=== PATIENT | female | born 1935 | race Caucasian/White ===

== ENCOUNTER 2018-12-22 21:25 | Inpatient (IN) ==
[2018-12-22] MEDS ORDERED: Aspirin 81 MG TAB.CHEW PO ONE (21:45)
[2018-12-22] MEDS ORDERED: Ondansetron 4 MG/2 ML VIAL IVP ONE (21:58)
[2018-12-22] MEDS ORDERED: Furosemide 40 MG/4 ML VIAL IVP ONE (21:58)
--- NOTE | 2018-12-22 22:25 | Emergency Department Note ---
Disposition Clinical Impression: Dyspnea Qualifiers: Dyspnea type: dyspnea on exertion Qualified Code(s): R06.09 - Other forms of dyspnea CHF (congestive heart failure) Qualifiers: Heart failure type: unspecified Heart failure chronicity: acute Qualified Code(s): I50.9 - Heart failure, unspecified Disposition: Admitted As Inpatient Condition: Fair Time of Disposition: 01:22 SOB HPI - General Chief Complaint: ED General Medical Stated Complaint: Dyspnea, Nausea, Cardiac HX Time Seen by Provider: 12/22/18 21:44 Source: patient, family Mode of arrival: ambulatory Limitations: no limitations Nursing Notes Reviewed: Yes Vital Signs Reviewed: Yes - History of Present Illness 83-year-old female patient presents for evaluation of shortness of breath. She has a history of coronary disease with 2 stent placements and a pacemaker with a history of atrial fibrillation and does take Coumadin. Patient and her granddaughter both state that her legs become more swollen the last few days. However, she has been short of breath for a while they state. Last night she was a difficult time sleeping she kept waking up short of breath. She called her granddaughter who is a nurse and advised her either she was taken to the hospital or call 911. Patient denies any chest pain but states that she does have some lower abdominal pain denies any epigastric or right upper quadrant pain. Pt Subjective Complaint: shortness of breath Onset (ago): week(s) (3 weeks but worse over the last 2-3 days.) Context: occurred during exertion (With even minor exertion) Severity: moderate Consistency/Duration: intermittent Improves with: rest Worsens with: lying flat, exertion, movement Known history of: other (Coronary artery disease and stent placement 2, pacemaker) Associated symptoms: Reports: orthopnea Treatment prior to arrival: none Cough present: No - Related Data Home oxygen amount: none Home Medications Medication Instructions Recorded Confirmed Aspirin Enteric Coated [Aspirin EC] 81 mg PO DAILY 12/26/14 12/23/18 Atorvastatin [Lipitor] 40 mg PO DAILY 12/26/14 12/23/18 Carvedilol [Coreg] 12.5 mg PO BID 12/26/14 12/23/18 Ferrous Gluconate 325 mg PO DAILY 12/26/14 12/23/18 Isosorbide MONOnitrate (24 HR) 60 mg PO DAILY 12/26/14 12/23/18 [Imdur] Omeprazole [PriLOSEC] 40 mg PO DAILY 12/26/14 12/23/18 Warfarin [Coumadin] 3 mg PO AD PRN 12/26/14 12/23/18 Alendronate Sodium [Fosamax] 70 mg PO QWEEK 12/23/18 12/23/18 Gabapentin [Neurontin] 900 mg PO DAILY 12/23/18 12/23/18 Previous Rx's Medication Instructions Recorded Furosemide [Lasix] 40 mg PO DAILY PRN #0 12/27/14 Allergies Allergy/AdvReac Type Severity Reaction Status Date / Time No Known Allergies Allergy Verified 12/26/14 12:21 Constitutional: Denies: fever, chills, weakness, weight change Eyes: Denies: eye pain, eye discharge, vision change ENT ED: Denies: ear pain, throat pain, dental pain, hearing loss, epistaxis, congestion, dysphagia Cardiovascular: Reports: dyspnea on exertion, orthopnea, edema. Denies: chest pain, palpitations, syncope Respiratory: Reports: dyspnea. Denies: cough, wheezes, hemoptysis, stridor Gastrointestinal: Denies: abdominal pain, nausea, vomiting, diarrhea, constipation, hematemesis, melena, hematochezia Genitourinary: Denies: dysuria, frequency, hematuria, discharge Musculoskeletal: Denies: back pain, neck pain, arthralgia, myalgia Integumentary: Denies: rash, abrasion, lesions Neurological: Denies: headache, weakness, numbness, paresthesias, confusion, abnormal gait, vertigo Psychiatric: Denies: anxiety, depression, suicidal thoughts, homicidal thoughts, auditory hallucinations, visual hallucinations Endocrine: Denies: fatigue Hematological/Lymphatic: Denies: easy bleeding, easy bruising Allergic/Immunologic: Denies: facial swelling, urticaria Past Medical History - Past Medical History Attestation: Yes The following information was validated with the patient. Source: patient Medical history: Reports: atrial fibrillation Surgical history: Reports: pacemaker/AICD Psychiatric history: Reports: no psych history - Social History Smoking Status: Never smoker Alcohol use: Reports: none Drug use: Reports: none Physical Exam - General Limitations: no limitations General appearance: alert, in no apparent distress - Head Head exam: atraumatic, normocephalic, normal inspection - Eye Eye exam: Present: normal appearance, PERRL, EOMI - Expanded Eye Exam Pupils: Left: reactive - ENT ENT exam: normal exam, normal oropharynx, mucous membranes moist, TM's normal bilaterally - Expanded ENT Exam External ear exam: Present: normal external inspection Mouth exam: Present: normal external inspection Teeth exam: Present: normal inspection Throat exam: Present: normal inspection - Neck Neck exam: Present: normal inspection, full ROM, trachea midline. Absent: tenderness, meningismus, lymphadenopathy - Chest Chest inspection: Present: normal inspection, symmetric chest wall rise. Absent: tenderness - Respiratory Respiratory exam: Present: normal lung sounds bilaterally, other (Negative for rales). Absent: respiratory distress, wheezes, stridor, accessory muscle use - Cardiovascular Cardiovascular exam: Present: regular rate (paced ) - Abdominal Exam Abdominal exam: Present: soft, tenderness (Bilateral lower abdominal tenderness left greater than right), normal bowel sounds. Absent: distention, guarding, rebound, rigidity Abdominal tenderness: Present: LLQ - Extremities Exam Extremities exam: Present: normal inspection, full ROM. Absent: tenderness, pedal edema - Expanded Upper Extremity Exam Shoulder exam: Present: normal inspection, full ROM. Absent: tenderness Arm exam: Present: normal inspection, full ROM. Absent: tenderness Elbow exam: Present: normal inspection, full ROM. Absent: tenderness Forearm/Wrist exam: Present: normal inspection, full ROM. Absent: tenderness Hand exam: Present: normal inspection, full ROM. Absent: tenderness Vascular exam: Normal: capillary refill, radial pulse - Expanded Lower Extremity Exam Hip/Pelvis exam: Present: normal inspection, full ROM. Absent: tenderness Upper leg exam: Present: normal inspection, full ROM. Absent: tenderness Knee exam: Present: normal inspection, full ROM. Absent: tenderness Lower leg exam: Present: normal inspection, full ROM, other (2+ pitting edema). Absent: tenderness Ankle exam: Present: normal inspection, full ROM. Absent: tenderness Foot/toe exam: Present: normal inspection, full ROM. Absent: tenderness Neurovascular/Tendon exam: Absent: motor deficit, sensory deficit, tendon deficit - Back Exam Back exam: Present: normal inspection, full ROM. Absent: tenderness, CVA tenderness (R), CVA tenderness (L) - Neurological Exam Neurological exam: Present: alert, oriented X3, CN II-XII intact - Expanded Neurological Exam Patient oriented to: Present: person, place, time Speech: Present: fluid speech Cranial nerves: EOM function (II, III, IV, ): Normal, facial sensation (V): Normal, facial palsy (VII): Normal, gag reflex (IX): Normal, spinal accessory fu nction (XI): Normal, tongue deviation (XII): Normal Motor strength - LUE: 5/5 Motor strength - RUE: 5/5 Motor strength - LLE: 5/5 Motor strength - RLE: 5/5 Coma Scale Eye Opening: Spontaneous Coma Scale Motor Response: Obeys Commands Coma Scale Verbal Response: Oriented Coma Scale Total: 15 - Psychiatric Psychiatric exam: Present: normal affect, normal mood - Skin Skin exam: Present: warm, dry, intact, normal color Course Course Narrative: Patient was placed in examination room. H&P is obtained. Nurse notes reviewed. She states she has been coming more exertional dyspneic. Sometimes at night she is more short of breath and unable to sleep. She did fall approximately 3 weeks ago. I will obtain basic lab work including EKG and cardiac workup. Wrist x-ray was obtained to rule out pulmonary edema or infiltrate. She Does have a coronary artery history with 2 stents and a pacemaker placed in 2011. Patient was given Lasix 40 g IV push secondary to dyspnea and pedal edema. I am concerned about her shortness breath as well as her abdominal pain. He states both of them present for some time but worse in the last few days. I will obtain a CTA of her chest to rule out pulmonary embolism along with a CT abdomen and pelvis to rule out any diverticulitis. - Reevaluation(s) Reevaluation #1: Patient is resting. She went to the bathroom and came back a little short of breath and when of right shoulder pain which is reproducible. It has since subsided. I will give her morphine 2 g IV push which should help with her sh ortness of breath, pain, anxiety. I did place oxygen 2 LPM nasal cannula to see if this improved her air hunger. Time: 23:31 Reevaluation #3: Discussed all results with the family and patient awaiting for call back from the hospitalist . Time: 02:31 - Consultations Consultation #1: Dr. Newman excess patient for observation. Time: 02:12 Vital Signs Temperature 97.8 F 12/22/18 21:27 Pulse Rate 80 12/22/18 21:27 Respiratory Rate 24 12/22/18 21:27 Blood Pressure 167/83 12/22/18 21:27 O2 Sat by Pulse Oximetry 94 12/22/18 21:27 Temperature 98.2 F 12/22/18 22:19 Pulse Rate 72 12/23/18 02:06 Respiratory Rate 16 12/23/18 02:06 Blood Pressure 130/69 12/23/18 02:06 O2 Sat by Pulse Oximetry 98 12/23/18 02:06 Oxygen Delivery Oxygen Delivery Nasal Cannula Shortness of Breath/Dyspnea - Differential Diagnosis Likely: congestive heart failure, pneumonia, pulmonary embolism - Medical Records Medical records reviewed: Yes I reviewed the patient's medical records. - Lab Data Lab results reviewed: Yes I reviewed the patient's lab results. Result diagrams: 12/22/18 22:11 12/22/18 22:11 Lab Results 12/22/18 12/22/18 12/22/18 Range/Units 22:11 22:11 22:11 WBC (4.3-11.1) K/mcL RBC (3.82-4.97) M/mcL Hgb (11.5-15.4) g/dL Hct (35.3-44.9) % MCV (83.0-100.0) fL MCH (28.0-33.3) pg MCHC (31.6-35.5) g/dL RDW (11.5-14.5) % Plt Count (140-400) K/mcL MPV (9.4-12.4) fL Immature Gran % (0-4) % Seg Neutrophils % % Lymphocytes % % Monocytes % % Eosinophils % % Basophils % % Neutrophils # (1.6-8.9) K/mcL Lymphocytes # (0.6-4.6) K/mcL Monocytes # (0.0-1.3) K/mcL Eosinophils # (0.0-0.6) K/mcL Basophils # (0.0-0.2) K/mcL PT 44.4 H* (9.4-12.1) Seconds INR 3.9 APTT 36.2 H (26.0-36.0) Seconds Sodium (136-145) mEq/L Potassium (3.5-5.1) mEq/L Chloride (98-107) mEq/L Carbon Dioxide (23-29) mEq/L BUN (8-23) mg/dL Creatinine (0.60-1.20) mg/dL Est GFR ( Amer) (> 60) Est GFR (Non-Af Amer) (> 60) BUN/Creatinine Ratio (6-26) Glucose (70-105) mg/dL Calculated Osmolality (280-300) Calcium (8.6-10.3) mg/dL Total Bilirubin 1.3 H (0.3-1.0) mg/dL Direct Bilirubin 0.3 H (0.0-0.2) mg/dL Indirect Bilirubin 1.0 (0.0-1.2) mg/dL AST 26 (13-39) Units/L ALT 18 (7-52) Units/L Alkaline Phosphatase 84 (34-104) Units/L Troponin I (< 0.04) ng/mL B-Natriuretic Peptide 1171 H (Less than 100) pg/mL Serum Total Protein 6.8 (6.4-8.9) g/dL Albumin 3.7 (3.5-5.7) g/dL Globulin 3.1 (2.4-3.5) g/dL Albumin/Globulin Ratio 1.2 (1.1-2.2) Lipase (11-82) Units/L Urine Color (Yellow) Urine Clarity (Clear) Urine pH (5.0-8.0) pH Units Ur Specific [place] (1.010-1.025) Urine Protein (Neg-Trace) mg/dL Urine Glucose (UA) (Normal) mg/dL Urine Ketones (Negative) mg/dL Urine Blood (Negative) Urine Nitrite (Negative) Urine Bilirubin (Negative) Urine Urobilinogen (Normal) mg/dL Ur Leukocyte Esterase (Negative) Urine Microscopic RBC (0-3) per hpf Urine Microscopic WBC (0-3) per hpf Ur Squamous Epith Cells (None-Few) per lpf Urine Bacteria (None-Few) per hpf Hyaline Casts (None-Few) per lpf Ur Culture Indicated? (NO) 12/22/18 12/22/18 12/22/18 Range/Units 22:11 22:11 22:11 WBC 7.5 (4.3-11.1) K/mcL RBC 3.75 L (3.82-4.97) M/mcL Hgb 10.6 L (11.5-15.4) g/dL Hct 33.3 L (35.3-44.9) % MCV 88.8 (83.0-100.0) fL MCH 28.3 (28.0-33.3) pg MCHC 31.8 (31.6-35.5) g/dL RDW 16.7 H (11.5-14.5) % Plt Count 268 (140-400) K/mcL MPV 10.3 (9.4-12.4) fL Immature Gran % 0.4 (0-4) % Seg Neutrophils % 67.8 % Lymphocytes % 19.4 % Monocytes % 10.7 % Eosinophils % 0.9 % Basophils % 0.8 % Neutrophils # 5.1 (1.6-8.9) K/mcL Lymphocytes # 1.5 (0.6-4.6) K/mcL Monocytes # 0.8 (0.0-1.3) K/mcL Eosinophils # 0.1 (0.0-0.6) K/mcL Basophils # 0.1 (0.0-0.2) K/mcL PT (9.4-12.1) Seconds INR APTT (26.0-36.0) Seconds Sodium 139 (136-145) mEq/L Potassium 3.8 (3.5-5.1) mEq/L Chloride 103 (98-107) mEq/L Carbon Dioxide 25 (23-29) mEq/L BUN 12 (8-23) mg/dL Creatinine 0.74 (0.60-1.20) mg/dL Est GFR ( Amer) > 60 (> 60) Est GFR (Non-Af Amer) > 60 (> 60) BUN/Creatinine Ratio 16 (6-26) Glucose 119 H (70-105) mg/dL Calculated Osmolality 289 (280-300) Calcium 8.4 L (8.6-10.3) mg/dL Total Bilirubin (0.3-1.0) mg/dL Direct Bilirubin (0.0-0.2) mg/dL Indirect Bilirubin (0.0-1.2) mg/dL AST (13-39) Units/L ALT (7-52) Units/L Alkaline Phosphatase (34-104) Units/L Troponin I < 0.03 (< 0.04) ng/mL B-Natriuretic Peptide (Less than 100) pg/mL Serum Total Protein (6.4-8.9) g/dL Albumin (3.5-5.7) g/dL Globulin (2.4-3.5) g/dL Albumin/Globulin Ratio (1.1-2.2) Lipase 17 (11-82) Units/L Urine Color (Yellow) Urine Clarity (Clear) Urine pH (5.0-8.0) pH Units Ur Specific [place] (1.010-1.025) Urine Protein (Neg-Trace) mg/dL Urine Glucose (UA) (Normal) mg/dL Urine Ketones (Negative) mg/dL Urine Blood (Negative) Urine Nitrite (Negative) Urine Bilirubin (Negative) Urine Urobilinogen (Normal) mg/dL Ur Leukocyte Esterase (Negative) Urine Microscopic RBC (0-3) per hpf Urine Microscopic WBC (0-3) per hpf Ur Squamous Epith Cells (None-Few) per lpf Urine Bacteria (None-Few) per hpf Hyaline Casts (None-Few) per lpf Ur Culture Indicated? (NO) 12/22/18 Range/Units 23:57 WBC (4.3-11.1) K/mcL RBC (3.82-4.97) M/mcL Hgb (11.5-15.4) g/dL Hct (35.3-44.9) % MCV (83.0-100.0) fL MCH (28.0-33.3) pg MCHC (31.6-35.5) g/dL RDW (11.5-14.5) % Plt Count (140-400) K/mcL MPV (9.4-12.4) fL Immature Gran % (0-4) % Seg Neutrophils % % Lymphocytes % % Monocytes % % Eosinophils % % Basophils % % Neutrophils # (1.6-8.9) K/mcL Lymphocytes # (0.6-4.6) K/mcL Monocytes # (0.0-1.3) K/mcL Eosinophils # (0.0-0.6) K/mcL Basophils # (0.0-0.2) K/mcL PT (9.4-12.1) Seconds INR APTT (26.0-36.0) Seconds Sodium (136-145) mEq/L Potassium (3.5-5.1) mEq/L Chloride (98-107) mEq/L Carbon Dioxide (23-29) mEq/L BUN (8-23) mg/dL Creatinine (0.60-1.20) mg/dL Est GFR ( Amer) (> 60) Est GFR (Non-Af Amer) (> 60) BUN/Creatinine Ratio (6-26) Glucose (70-105) mg/dL Calculated Osmolality (280-300) Calcium (8.6-10.3) mg/dL Total Bilirubin (0.3-1.0) mg/dL Direct Bilirubin (0.0-0.2) mg/dL Indirect Bilirubin (0.0-1.2) mg/dL AST (13-39) Units/L ALT (7-52) Units/L Alkaline Phosphatase (34-104) Units/L Troponin I (< 0.04) ng/mL B-Natriuretic Peptide (Less than 100) pg/mL Serum Total Protein (6.4-8.9) g/dL Albumin (3.5-5.7) g/dL Globulin (2.4-3.5) g/dL Albumin/Globulin Ratio (1.1-2.2) Lipase (11-82) Units/L Urine Color Yellow (Yellow) Urine Clarity Clear (Clear) Urine pH 6.0 (5.0-8.0) pH Units Ur Specific [place] 1.009 L (1.010-1.025) Urine Protein 30 H (Neg-Trace) mg/dL Urine Glucose (UA) Normal (Normal) mg/dL Urine Ketones Negative (Negative) mg/dL Urine Blood Trace H (Negative) Urine Nitrite Negative (Negative) Urine Bilirubin Negative (Negative) Urine Urobilinogen Normal (Normal) mg/dL Ur Leukocyte Esterase Negative (Negative) Urine Microscopic RBC 3-5 H (0-3) per hpf Urine Microscopic WBC 0-3 (0-3) per hpf Ur Squamous Epith Cells Moderate H (None-Few) per lpf Urine Bacteria None Seen (None-Few) per hpf Hyaline Casts None Seen (None-Few) per lpf Ur Culture Indicated? NO (NO) - Radiology Data Radiology results reviewed: Yes I reviewed the patient's radiology results. Chest X-Ray 12/22/18 22:29 IMPRESSION: Mild pulmonary edema. D/ / Bradley Armijo MD / Bradley Armijo MD Interpreting Provider: Bradley Armijo MD Abdomen/Pelvis CT 12/23/18 01:09 IMPRESSION: Negative for acute pulmonary embolism. Features of cardiac decompensation, including bilateral pleural effusions with pulmonary edema. Hepatic features suggesting cardiac cirrhosis. Additional features of volume overload, including gallbladder wall edema, mesenteric edema and abdominal ascites. Heavy multi vessel coronary calcifications. D/ / Jae Pringle / Jae Pringle Interpreting Provider: Jae Pringle Chest CTA 12/23/18 01:09 IMPRESSION: Negative for acute pulmonary embolism. Features of cardiac decompensation, including bilateral pleural effusions with pulmonary edema. Hepatic features suggesting cardiac cirrhosis. Additional features of volume overload, including gallbladder wall edema, mesenteric edema and abdominal ascites. Heavy multi vessel coronary calcifications. D/ / Jae Pringle / Jae Pringle Interpreting Provider: Jae Pringle - EKG Data EKG attestation: Yes I reviewed and interpreted this EKG. EKG results narrative: EKG is reviewed and interpreted by me: Ventricular paced rhythm rate of 74 bpm, left axis, no acute ST elevations, underlying atrial fibrillation, negative [place] Criteria Critical Care Time Critical Care Time: Yes Total Critical Care Time: 45 Attestation: The high probability of a clinically significant, sudden or life threatening deterioration of the patient's condition required my full and direct attention, intervention and personal management.
[2018-12-22 22:28] LABS: White Blood Count 7.5 K/mcL (4.3-11.1)
[2018-12-22 22:29] LABS: Basophils # 0.1 K/mcL (0.0-0.2); Basophils % 0.8 %; Eosinophils # 0.1 K/mcL (0.0-0.6); Eosinophils % 0.9 %; Hematocrit 33.3 % (35.3-44.9); Hemoglobin 10.6 g/dL (11.5-15.4); Immature Granulocytes % 0.4 % (0-4); Lymphocytes # 1.5 K/mcL (0.6-4.6); Lymphocytes % 19.4 %; Mean Corpuscular HGB Conc 31.8 g/dL (31.6-35.5); Mean Corpuscular Hemoglobin 28.3 pg (28.0-33.3); Mean Corpuscular Volume 88.8 fL (83.0-100.0); Mean Platelet Volume 10.3 fL (9.4-12.4); Monocytes # 0.8 K/mcL (0.0-1.3); Monocytes % 10.7 %; Neutrophils # 5.1 K/mcL (1.6-8.9); Platelet Count 268 K/mcL (140-400); Red Blood Count 3.75 M/mcL (3.82-4.97); Red Cell Distribution Width 16.7 % (11.5-14.5); Segmented Neutrophils % 67.8 %
[2018-12-22 22:36] LABS: INR 3.9
[2018-12-22 22:39] LABS: Activated Partial Thrombo Time 36.2 Seconds (26.0-36.0)
[2018-12-22 22:43] LABS: Prothrombin Time 44.4 Seconds (9.4-12.1)
[2018-12-22 22:49] LABS: Albumin 3.7 g/dL (3.5-5.7); Albumin/Globulin Ratio 1.2 (1.1-2.2); Bilirubin,Direct 0.3 mg/dL (0.0-0.2); Bilirubin,Total 1.3 mg/dL (0.3-1.0); Globulin 3.1 g/dL (2.4-3.5); Total Protein 6.8 g/dL (6.4-8.9)
[2018-12-22 22:51] LABS: BUN/Creatinine Ratio 16 (6-26); Blood Urea Nitrogen 12 mg/dL (8-23); Calcium 8.4 mg/dL (8.6-10.3); Carbon Dioxide 25 mEq/L (23-29); Chloride 103 mEq/L (98-107); Glucose 119 mg/dL (70-105); Osmolality,Calculated 289 (280-300); Potassium 3.8 mEq/L (3.5-5.1); Sodium 139 mEq/L (136-145); Troponin I < 0.03 ng/mL (< 0.04); eGFR For African Americans > 60 (> 60); eGFR For Non-African Americans > 60 (> 60)
[2018-12-22] MEDS ORDERED: Isovue-370 500 ML BOTTLE IVP ONE (23:02)
[2018-12-22] MEDS ORDERED: Morphine Sulfate 2 MG/ML SYRINGE IVP ONE (23:30)
[2018-12-23 00:08] LABS: Bilirubin,Urine Negative (Negative); Blood,Urine Trace (Negative); Clarity,Urine Clear (Clear); Color,Urine Yellow (Yellow); Glucose,Urine (UA) Normal (Normal); Ketones,Urine Negative (Negative); Leukocyte Esterase,Urine Negative (Negative); Nitrite,Urine Negative (Negative); Protein,Urine 30 mg/dL (Neg-Trace); Specific Gravity,Urine 1.009 (1.010-1.025); Urobilinogen,Urine Normal (Normal)
[2018-12-23 00:11] LABS: Bacteria,Urine None Seen per hpf (None-Few); Hyaline Casts,Urine None Seen per lpf (None-Few); Squamous Epithelial Cell,Urine Moderate per lpf (None-Few); WBC,Urine 0-3 per hpf (0-3)
--- NOTE | 2018-12-23 08:30 | Internal Med History&Physical ---
Date of Encounter: 12/23/18 Time of Encounter: 08:28 Internal Medicine - H&P: HPI Chief complaint: leg swelling, sob Admitted From: Home Plans for Post Hospital Care: Home History of present illness: Ms. Correa is a 83 year old female with past medical history of A. fib on Coumadin, status post pacemaker, CAD with stent last stent in 2011, hypertension came in with complain of shortness of breath and increased leg swelling for the past 3 or so weeks. Patient has noted gradually worsening shortness of breath increasingly with minimal exertion and lately present at night as well making it difficult to sleep. Patient 's granddaughter who is a nurse asked her to come to ER. Patient denied any chest pain at any point of time. Denies missing any medication. Denies any abdominal pain back pain nausea vomiting or diarrhea. She takes Coumadin and had recently INR checked which was okay. Denies any blood in stool or urine. Denies any dark stool. Denies any upper respiratory recent infection. Is not a big salt eater and denies taking a lot of prepared food. Patient was related in ER. She did not have any PE on CTA had signs of pulmonary edema with bilateral pleural effusion and hepatic features suggesting cardiac cirrhosis and gallbladder wall edema, mesenteric edema and abdominal ascites. Patient also complaining of some abdominal discomfort to ER physician which she denied To me. She had CT abdomen for evaluation diverticulitis which did not show any signs of infection. She denied any allergies. Did not know all of her medication except gabapentin, Coumadin, carvedilol, aspirin. Discussed CODE STATUS and patient is full code. Past Med Surg Social Fam HX - Past Medical History Medical history: atrial fibrillation, hyperlipidemia, hypertension Additional medical history: pacemaker; stents Psychiatric history: no psych history - Past Surgical History Surgical History: pacemaker/AICD Additional surgical history: tubal, cardiac stents x 2 - Social History Smoking Status: Never smoker Smokeless Tobacco Status: No Alcohol use: none Drug use: none - Additional Family History Additional family history: mother had heart problems, father and brother with diabetes Internal Medicine - H&P: Meds Aspirin Enteric Coated [Aspirin EC] 81 mg PO DAILY 12/26/14 [History] Atorvastatin [Lipitor] 40 mg PO DAILY 12/26/14 [History] Carvedilol [Coreg] 12.5 mg PO BID 12/26/14 [History] Ferrous Gluconate 325 mg PO DAILY 12/26/14 [History] Isosorbide MONOnitrate (24 HR) [Imdur] 60 mg PO DAILY 12/26/14 [History] Omeprazole [PriLOSEC] 40 mg PO DAILY 12/26/14 [History] Warfarin [Coumadin] 3 mg PO AD PRN 12/26/14 [History] Furosemide [Lasix] 40 mg PO DAILY PRN #0 12/27/14 [Rx] Alendronate Sodium [Fosamax] 70 mg PO QWEEK 12/23/18 [History] Gabapentin [Neurontin] 900 mg PO DAILY 12/23/18 [History] Allergy/AdvReac Type Severity Reaction Status Date / Time No Known Allergies Allergy Verified 12/26/14 12:21 All Systems PM: A 10-system review of systems was performed and is negative for pertinent findings except as documented above in the HPI. - Constitutional Vitals: Temp Pulse Resp BP Pulse Ox 98.4 F 82 18 156/92 90 12/23/18 07:37 12/23/18 07:37 12/23/18 07:37 12/23/18 07:37 12/23/18 07:37 Exam: Constitutional: Vitals as noted. Conversant. No Apparent Distress. Eyes : Sclera white, conjunctiva clear, no lid lag, PEARLA. ENT : Grossly normal hearing. Respiratory : No accessory muscle use. Occasional rhonchi. Diffuse crackles Cardiovascular : RRR, +S1, +S2. no murmur, gallop, rubs. No chest wall tenderness GI/Abdominal : Soft, Non-tender, Non-distended, normal bowel sounds, no peritoneal signs. Musculoskeletal: no deformity noted, trace pedal edema, pulses palpable and symmetrical in UE/LE. no calf tenderness. Neurological: AO X3, CN II-XII grossly intact, grossly normal motor and sensory exam. Skin: No skin rash, lesions or ulcers noted. Pych: Good insight and judgement. Intact memory. AOx3. Internal Med - H&P Results - Labs CBC & Chem 7: 12/22/18 22:11 12/22/18 22:11 Labs: Short CBC 12/22/18 Range/Units 22:11 WBC 7.5 (4.3-11.1) K/mcL Hgb 10.6 L (11.5-15.4) g/dL Hct 33.3 L (35.3-44.9) % Plt Count 268 (140-400) K/mcL Neutrophils # 5.1 (1.6-8.9) K/mcL BMP 12/22/18 22:11 Sodium 139 Potassium 3.8 Chloride 103 Carbon Dioxide 25 BUN 12 Creatinine 0.74 Glucose 119 H Calcium 8.4 L Cardiac Enzymes 12/22/18 Range/Units 22:11 Troponin I < 0.03 (< 0.04) ng/mL Liver Function 12/22/18 Range/Units 22:11 Total Bilirubin 1.3 H (0.3-1.0) mg/dL Direct Bilirubin 0.3 H (0.0-0.2) mg/dL AST 26 (13-39) Units/L ALT 18 (7-52) Units/L Alkaline Phosphatase 84 (34-104) Units/L Albumin 3.7 (3.5-5.7) g/dL Urine 12/22/18 Range/Units 23:57 Urine Color Yellow (Yellow) Urine Clarity Clear (Clear) Urine pH 6.0 (5.0-8.0) pH Units Ur Specific [place] 1.009 L (1.010-1.025) Urine Protein 30 H (Neg-Trace) mg/dL Urine Glucose (UA) Normal (Normal) mg/dL - EKG Data -: EKG Interpreted by Myself (paced rhythm. ) - Impressions ITS Impressions Chest X-Ray 12/22/18 22:29 IMPRESSION: Mild pulmonary edema. D/ / Bradley Armijo MD / Bradley Armijo MD Interpreting Provider: Bradley Armijo MD Abdomen/Pelvis CT 12/23/18 01:09 IMPRESSION: Negative for acute pulmonary embolism. Features of cardiac decompensation, including bilateral pleural effusions with pulmonary edema. Hepatic features suggesting cardiac cirrhosis. Additional features of volume overload, including gallbladder wall edema, mesenteric edema and abdominal ascites. Heavy multi vessel coronary calcifications. D/ / Jae Pringle / Jae Pringle Interpreting Provider: Jae Pringle Chest CTA 12/23/18 01:09 IMPRESSION: Negative for acute pulmonary embolism. Features of cardiac decompensation, including bilateral pleural effusions with pulmonary edema. Hepatic features suggesting cardiac cirrhosis. Additional features of volume overload, including gallbladder wall edema, mesenteric edema and abdominal ascites. Heavy multi vessel coronary calcifications. D/ / Jae Pringle / Jae Pringle Interpreting Provider: Jae Pringle - Assessment and Plan (1) CHF (congestive heart failure) Current Visit: Yes Status: Acute Assessment and plan: Patient with signs of fluid overload on imaging and exam. CT with pulmonary edema, bilateral pleural effusion, abdominal ascites, gallbladder wall edema and mesenteric edema. Patient with minimal lower extremity edema EKG with paced rhythm in troponin and unremarkable. BNP of 1100. Last echo in 2014 with EF of 50% on last echocardiogram, with dilated left and right atrium. We will repeat echocardiogram. appears to be compliant with her medications. Has a pacemaker. Could be related to new anemia. Continue Lasix 40 twice a day IV and monitor renal function. strict I/O, daily weights Qualifiers: Heart failure type: combined systolic and diastolic Heart failure chronicity: acute on chronic Qualified Code(s): I50.43 - Acute on chronic combined systolic (congestive) and diastolic (congestive) heart failure (2) Dyspnea Current Visit: Yes Status: Acute Assessment and plan: Likely related to CHF. Treatment as above No history of smoking. Without amputation at his changes on CT Qualifiers: Dyspnea type: orthopnea Qualified Code(s): R06.01 - Orthopnea (3) DVT prophylaxis Current Visit: No Status: Acute Assessment and plan: On Coumadin (4) Hyperglycemia Current Visit: No Status: Acute Assessment and plan: We will obtain A1c. No history of diabetes. (5) Atrial fibrillation Current Visit: No Status: Chronic Assessment and plan: History of chronic A. fib on Coumadin and Coreg. Currently with paced rhythm Continue home beta octavio. Coumadin on hold as INR supratherapeutic Qualifiers: Atrial fibrillation type: chronic Qualified Code(s): I48.2 - Chronic atrial fibrillation (6) CAD (coronary artery disease) Current Visit: No Status: Chronic Assessment and plan: Without any chest pain Continue home aspirin, statin, beta octavio Qualifiers: Coronary Disease-Associated Artery/Lesion type: [place] artery [place] vs. transplanted heart: [place] heart Associated angina: without angina Qualified Code(s): I25.10 - Atherosclerotic heart disease of [place] coronary artery without angina pectoris (7) HTN (hypertension) Current Visit: No Status: Chronic Assessment and plan: Continue home Coreg, Imdur Qualifiers: Hypertension type: essential hypertension Qualified Code(s): I10 - Essential (primary) hypertension (8) Supratherapeutic INR Current Visit: Yes Status: Acute Assessment and plan: INR of 3.9. We will hold home Coumadin (9) Anemia Current Visit: Yes Status: Acute Assessment and plan: Patient with anemia with hemoglobin 10.6 last normal is 2017 No elina blood in stool or urine. INR is supratherapeutic and patient on Coumadin Possibly iron deficiency anemia with increased RDW. Obtain iron panel, ferritin, stool occult blood. He also obtain LDH and haptoglobin given minimally elevated bilirubin Qualifiers: Anemia type: unspecified type Qualified Code(s): D64.9 - Anemia, unspecified - Time Spent With Patient Total time spent is greater than 50% in coordination of care (as documented) at patient's floor/unit and/or counseling patient:
[2018-12-23] MEDS ORDERED: NON-FORMULARY MEDICATION 1 EACH EACH (Alendronate Sodium [Fosamax] 70 MG) PO SCH (09:30)
[2018-12-23 11:13] LABS: % Iron Saturation 12 % (15-50); Iron 43 mcg/dL (50-170); Lactate Dehydrogenase 219 Units/L (140-271); Transferrin 265 mg/dL (203-362)
[2018-12-23] MEDS: Aspirin Enteric Coated 81 MG Tablet PO SCH (11:14)
[2018-12-23] MEDS: Gabapentin 300 MG CAPSULE PO SCH (11:14)
[2018-12-23] MEDS: Isosorbide MONOnitrate (24 HR) 60 MG TAB.ER.24H PO SCH (11:15)
[2018-12-23 11:31] LABS: Ferritin 139 ng/mL (10-120)
[2018-12-23 11:48] LABS: Estimated Average Glucose 134 mg/dl
[2018-12-23 11:52] LABS: Hepatitis B Surface Antigen Nonreactive (Nonreactive)
[2018-12-23 12:21] LABS: Hepatitis B Core IgM Nonreactive (Nonreactive); Hepatitis C Virus Antibody Nonreactive (Nonreactive)
[2018-12-23 12:23] LABS: Hepatitis A Antibody IgM Nonreactive (Nonreactive)
--- NOTE | 2018-12-23 17:39 | Electrocardiograph Report ---
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
[2018-12-23] MEDS ORDERED: Perflutren Lipid Microsphere 1.3 ML in 0.9 % Sodium Chloride 8.7 ML IVP ONE (20:05)
[2018-12-24] MEDS ORDERED: Acetaminophen 325 MG TABLET PO PRN (00:16)
[2018-12-24 05:18] LABS: Basophils # 0.1 K/mcL (0.0-0.2); Basophils % 0.8 %; Eosinophils # 0.2 K/mcL (0.0-0.6); Eosinophils % 2.9 %; Hemoglobin 9.1 g/dL (11.5-15.4); Immature Granulocytes % 0.5 % (0-4); Lymphocytes # 1.2 K/mcL (0.6-4.6); Lymphocytes % 18.1 %; Mean Corpuscular HGB Conc 30.3 g/dL (31.6-35.5); Mean Corpuscular Hemoglobin 27.7 pg (28.0-33.3); Mean Corpuscular Volume 91.5 fL (83.0-100.0); Monocytes # 0.8 K/mcL (0.0-1.3); Monocytes % 11.8 %; Neutrophils # 4.4 K/mcL (1.6-8.9); Platelet Count 216 K/mcL (140-400); Red Blood Count 3.28 M/mcL (3.82-4.97); Red Cell Distribution Width 16.5 % (11.5-14.5); Segmented Neutrophils % 65.9 %; White Blood Count 6.6 K/mcL (4.3-11.1)
[2018-12-24 05:38] LABS: BUN/Creatinine Ratio 15 (6-26); Blood Urea Nitrogen 12 mg/dL (8-23); Calcium 7.9 mg/dL (8.6-10.3); Carbon Dioxide 31 mEq/L (23-29); Chloride 100 mEq/L (98-107); Glucose 101 mg/dL (70-105); Osmolality,Calculated 288 (280-300); Potassium 3.8 mEq/L (3.5-5.1); Sodium 139 mEq/L (136-145); eGFR For African Americans > 60 (> 60); eGFR For Non-African Americans > 60 (> 60)
[2018-12-24 06:17] LABS: INR 2.5; Prothrombin Time 28.8 Seconds (9.4-12.1)
[2018-12-24] MEDS ORDERED: Furosemide 40 MG/4 ML VIAL IVP SCH (09:00)
--- NOTE | 2018-12-24 09:01 | Internal Med Progress Note ---
<Jimena Charlton - Last Filed: 12/24/18 12:22> Hospitalist Progress Note - Encounter Date of Encounter: 12/24/18 Time of Encounter: 09:55 - Exam Vitals: Temp Pulse Resp BP Pulse Ox 98.5 F 69 16 143/82 97 12/24/18 11:46 12/24/18 11:46 12/24/18 11:46 12/24/18 11:46 12/24/18 05:05 - Assessment and Plan (1) CHF (congestive heart failure) Current Visit: Yes Status: Acute (2) Dyspnea Current Visit: Yes Status: Acute (3) DVT prophylaxis Current Visit: No Status: Acute (4) Hyperglycemia Current Visit: No Status: Acute (5) Atrial fibrillation Current Visit: No Status: Chronic (6) CAD (coronary artery disease) Current Visit: No Status: Chronic (7) HTN (hypertension) Current Visit: No Status: Chronic (8) Supratherapeutic INR Current Visit: Yes Status: Acute (9) Anemia Current Visit: Yes Status: Acute - Time Spent with Patient Total time spent is greater than 50% in coordination of care (as documented) at patient's floor/unit and/or counseling patient: Internal Medicine: Result - Labs CBC & Chem 7: 12/24/18 05:03 12/24/18 05:03 Labs: Short CBC 12/24/18 Range/Units 05:03 WBC 6.6 (4.3-11.1) K/mcL Hgb 9.1 L D (11.5-15.4) g/dL Hct 30.0 L (35.3-44.9) % Plt Count 216 (140-400) K/mcL Neutrophils # 4.4 (1.6-8.9) K/mcL BMP 12/24/18 05:03 Sodium 139 Potassium 3.8 Chloride 100 Carbon Dioxide 31 H BUN 12 Creatinine 0.79 Glucose 101 Calcium 7.9 L - ABG Interpretation ABG results: PT/INR, D-dimer PT 28.8 Seconds (9.4-12.1) H 12/24/18 05:03 - Impressions Impressions Echocardiogram 12/23/18 20:59 Impressions: LVEF 30-35%. Normal LV chamber size, wall thickness. Global left ventricular systolic dysfunction. Atypical septal motion consistent with bundle branch block. Indeterminate diastolic function. Mild aortic regurgitation. Normal right ventricular size, mildly reduced function. Mild mitral regurgitation. Moderate tricuspid regurgitation. Mild-moderate pulmonary hypertension. Device lead visualized in right sided chambers. Left Ventricular Wall Motion: Rest Echo Findings The apex, apical inferior, mid inferior, basal inferior, apical anterior, mid anterior, basal anterior, apical septal, mid inferior septal, basal inferior septal, apical lateral, mid anterior lateral, basal anterior lateral, mid anterior septal, mid inferior lateral, basal anterior septal and basal inferior lateral khoury were hypokinetic. Findings: Study Quality * Technically adequate exam. ECG Findings * Difficult to determine rhythm, bundle branch block noted. Left Ventricle * LVEF 30-35%. * Normal LV chamber size, wall thickness. * Global left ventricular systolic dysfunction. * Atypical septal motion consistent with bundle branch block. * Indeterminate diastolic function. Right Ventricle * Normal right ventricular size, mildly reduced function. Left Atrium * Severely dilated left atrium. Right Atrium * Severely dilated right atrium. Interatrial Septum * Interatrial septum not well evaluated. Aortic Valve * Bicuspid aortic valve. * Moderately calcified aortic valve leaflets. * Mild aortic regurgitation. * No aortic stenosis by Doppler. Visually, there appears to be at least mild stenosis. Mitral Valve * Mild mitral annular calcification * Mild mitral regurgitation. * No mitral stenosis. Tricuspid Valve * Normal tricuspid valve structure. * Moderate tricuspid regurgitation. * Mild-moderate pulmonary hypertension. Pulmonic Valve * Normal pulmonic valve structure. * Trace pulmonic regurgitation. Aorta * Normally sized aortic root. Pericardium * The pericardium appears normal. IVC * Normal IVC dimensions and inspiratory collapse. Pulmonary Artery * Normal visualized portions of the main pulmonary artery. Consult Discharge Plan - Plan Referrals: Joanna Alvarado MD [Primary Care Provider] - - Attending Attestation I saw evaluated and examined this patient and reviewed objective data including labs and my medical decision-making was reviewed with the Resident Physician, Pankaj Pérez. I agree with the documented findings, disposition and treatment plan as described except to any changes set forth below. We independently had [id number] contact with the patient. Patient continues to have shortness of breath with minimal exertion. Denies orthopnea. Does have dark colored stools but she has been on iron supplements. Denies any hematemesis. She had been previously told that she was anemic about a week back when she had labs done by her primary care provider provider. No history of EGD or colonoscopy. Echocardiogram does show reduced ejection fraction. Will consult cardiology. Hemoglobin 9.1 this morning. We will recheck. If continues to be low, will consult GI for acute care surgery to evaluate for possible EGD and colonoscopy for her anemia as patient is on Coumadin and also will most likely require left heart catheterization and may need to rule out active bleeding prior to this procedure. Continue IV Lasix twice a day. Monitor potassium levels and renal function. <Pankaj Pérez - Last Filed: 12/24/18 19:23> Hospitalist Progress Note - Encounter Date of Encounter: 12/24/18 - Subjective Interval History: Patient seen and examined at bedside. Denies any new or acute complaints. States she feels less short of breath and during initial presentation. Reports improved lower extremity edema. Denies any fever, chills, chest pain, abdominal pain, nausea, vomiting, headaches, numbness, tingling, or urinary symptoms. - Exam Vitals: Temp Pulse Resp BP Pulse Ox 98.5 F 69 16 121/66 97 12/24/18 07:42 12/24/18 07:42 12/24/18 07:42 12/24/18 07:42 12/24/18 05:05 Exam: Constitutional: Old female in no acute distress Head: Normocephalic, atraumatic Eyes: PERRL, EOMI, conjunctiva pink, sclera anicteric Neck: Supple, trachea midline Lungs: Clear to auscultation bilaterally. Nonlabored breathing. No wheezes, rales, or rhonchi noted. Cardiac: RRR. +s1 +s2 No murmurs, clicks, or rubs noted. GI: Abdomen soft, nontender, mild abdominal distention. Normoactive bowel sounds Extremities: Warm, radial pulses palpable and symmetrical. No cyanosis or calf tenderness. Trace pitting edema in bilateral lower extremities Neuro: Alert and oriented 3. No focal deficits. Normal speech. Skin: Warm, dry, and intact. - Assessment and Plan (1) CHF (congestive heart failure) Current Visit: Yes Status: Acute Assessment and Plan: Presented with shortness of breath, orthopnea, and paroxysmal nocturnal dyspnea CT with pulmonary edema, bilateral pleural effusion, abdominal ascites, gallbladder wall edema and mesenteric edema. EKG with paced rhythm in troponin and unremarkable. BNP elevated at 1100 Last echo in 2014 with EF of 50% on last echocardiogram, with dilated left and right atrium. Repeat echocardiogram demonstrated LVEF 30-35% with global left ventricular systolic dysfunction Consult cardiology for further assistance with workup and management of the reduced ejection fraction heart failure Initiate 2.5 mg lisinopril daily Lasix 40 twice a day IV strict I/O, daily weights Salt and 1.5 L fluid restricted diet (2) Atrial fibrillation Current Visit: Yes Status: Chronic Assessment and Plan: History of chronic A. fib on Coumadin and Coreg. Currently with paced rhythm Continue home beta octavio. Coumadin on hold as INR was supratherapeutic at 3.9 on admission (3) CAD (coronary artery disease) Current Visit: Yes Status: Chronic Assessment and Plan: Without any chest pain Troponin negative Continue home aspirin, statin, beta octavio (4) HTN (hypertension) Current Visit: Yes Status: Chronic Assessment and Plan: Continue home Coreg, Imdur (5) Supratherapeutic INR Current Visit: Yes Status: Acute Assessment and Plan: INR of 3.9 on admission Continue to monitor hold home Coumadin (6) Anemia Current Visit: Yes Status: Acute Assessment and Plan: Patient with anemia with hemoglobin 10.6 last normal is 2017 No elina blood in stool or urine. Patient denies any melena. INR is supratherapeutic and patient on Coumadin Iron panel demonstrates iron deficiency Suspect this is a chronic anemia at this time with no overt signs of bleeding, hemoglobin is stable today at 10 Continue to monitor and supplement with iron - Time Spent with Patient Total time spent is greater than 50% in coordination of care (as documented) at patient's floor/unit and/or counseling patient: Internal Medicine: Result - Labs CBC & Chem 7: 12/24/18 11:34 12/24/18 05:03 Labs: Short CBC 12/24/18 Range/Units 05:03 WBC 6.6 (4.3-11.1) K/mcL Hgb 9.1 L D (11.5-15.4) g/dL Hct 30.0 L (35.3-44.9) % Plt Count 216 (140-400) K/mcL Neutrophils # 4.4 (1.6-8.9) K/mcL BMP 12/24/18 05:03 Sodium 139 Potassium 3.8 Chloride 100 Carbon Dioxide 31 H BUN 12 Creatinine 0.79 Glucose 101 Calcium 7.9 L - ABG Interpretation ABG results: PT/INR, D-dimer PT 28.8 Seconds (9.4-12.1) H 12/24/18 05:03 <Jimena Charlton - Last Filed: 12/24/18 12:22> (1) CHF (congestive heart failure) Qualifiers: Heart failure type: combined systolic and diastolic Heart failure chronicity: acute on chronic Qualified Code(s): I50.43 - Acute on chronic combined systolic (congestive) and diastolic (congestive) heart failure (2) Dyspnea Qualifiers: Dyspnea type: orthopnea Qualified Code(s): R06.01 - Orthopnea (5) Atrial fibrillation Qualifiers: Atrial fibrillation type: chronic Qualified Code(s): I48.2 - Chronic atrial fibrillation (6) CAD (coronary artery disease) Qualifiers: Coronary Disease-Associated Artery/Lesion type: [place] artery [place] vs. transplanted heart: [place] heart Associated angina: without angina Qualified Code(s): I25.10 - Atherosclerotic heart disease of [place] coronary artery without angina pectoris (7) HTN (hypertension) Qualifiers: Hypertension type: essential hypertension Qualified Code(s): I10 - Essential (primary) hypertension (9) Anemia Qualifiers: Anemia type: unspecified type Qualified Code(s): D64.9 - Anemia, unspecified <Pankaj Pérez - Last Filed: 12/24/18 19:23> (1) CHF (congestive heart failure) Qualifiers: Heart failure type: combined systolic and diastolic Heart failure chronicity: acute on chronic Qualified Code(s): I50.43 - Acute on chronic combined systolic (congestive) and diastolic (congestive) heart failure (2) Atrial fibrillation Qualifiers: Atrial fibrillation type: chronic Qualified Code(s): I48.2 - Chronic atrial fibrillation (3) CAD (coronary artery disease) Qualifiers: Coronary Disease-Associated Artery/Lesion type: [place] artery [place] vs. transplanted heart: [place] heart Associated angina: without angina Qualified Code(s): I25.10 - Atherosclerotic heart disease of [place] coronary artery without angina pectoris (4) HTN (hypertension) Qualifiers: Hypertension type: essential hypertension Qualified Code(s): I10 - Essential (primary) hypertension (6) Anemia Qualifiers: Anemia type: unspecified type Qualified Code(s): D64.9 - Anemia, unspecified
[2018-12-24] MEDS: Gabapentin 300 MG CAPSULE PO SCH ×2 (10:01→20:26)
[2018-12-24] MEDS: Aspirin Enteric Coated 81 MG Tablet PO SCH (10:02)
[2018-12-24] MEDS: Isosorbide MONOnitrate (24 HR) 60 MG TAB.ER.24H PO SCH (10:03)
[2018-12-24 12:25] LABS: Hematocrit 32.6 % (35.3-44.9)
--- NOTE | 2018-12-24 14:02 | Cardiology Consult Note ---
<David Jiménez - Last Filed: 12/24/18 15:18> Date of Encounter: 12/24/18 Time of Encounter: 13:54 Assessment and Plan (1) Acute systolic CHF (congestive heart failure), NYHA class 4 Current Visit: Yes Status: Acute Acute decompensated biventricular heart failure. Presents with increasing MCCOY, abdominal distention, and weight gain. [id number]. CXR and CTA shows pulmonary edema, anasarca, cardiac liver cirrhosis. TTE shows EF 30-35%, Normal RV structure with mild reduction in function. Mild AR. Moderate TR. Mild to moderate PHT. EF in 2014 was 50%. Agree with IV lasix. [facility] recommended when able for ischemic evaluation once stable from CHF and anemia standpoint. There is concern for anemia this admission. Consider GI evaluation if indicated. R/B/A of [facility] discussed and she agrees to proceed. Continue bb and aceI. Only net negative 540ml. Increase lasix to 40 IV BID. (2) Atrial fibrillation Current Visit: No Status: Chronic H/o permanent afib s/p AV node ablation and single chamber PPM in 2011. May benefit from upgrade of PPM to dual chamber in future. 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 Supratherapeutic on admission. Coumadin on hold. Hold for possible [facility] thursday. Qualifiers: Atrial fibrillation type: chronic Qualified Code(s): I48.2 - Chronic atrial fibrillation (3) CAD (coronary artery disease) Current Visit: No Status: Chronic H/o CAD s/p PCI to LAD and RCA in 2011. Continue asa, statin, and bb. Qualifiers: Coronary Disease-Associated Artery/Lesion type: [place] artery [place] vs. transplanted heart: [place] heart Associated angina: without angina Qualified Code(s): I25.10 - Atherosclerotic heart disease of [place] coronary artery without angina pectoris Discussion w patient/family: The assessment and plan as outlined above was discussed with the patient and/or family members who expressed understanding and agreement. All questions were answered. Thank you for involving us in the care of your patient. Please call with any questions. History of Present Illness Consult date: 12/24/18 Requesting physician: Pankaj Pérez Consult reason: acute CHF Chief complaint: MCCOY History of present illness: Ms. Correa is a 83 year old female with past medical history significant for CAD s/p LEIA-LAD and RCA 2011, permanent Afib on warfarin s/p AVN ablation, and single chamber PPM 2011, HTN, GERD. She presented to the ED with MCCOY and ab dominal bloating increasing over the last three weeks. C/o lightheadedness and fall when she was walking across the street from her neighbors house 3 weeks ago. Work-up revealed pulmonary edema on CXR and CT. TTE showed newly reduced EF at 30-35% compared to 50% in 2015. Cardiology consulted for acute systolic CHF. BNP 1171. She denies chest pain or palpitations. Denies BLE edema. Prior cardiac testin TTE EF 50%, RV nl, severe LAE, mild AR/TR, no PH, no PFO. LEIA-pLAD and p/mRCA. LHC for NSTEMI: LM nl, pLAD 80%, pLCx 40%, p/mRCA 70-80%. Past Med Surg Social Fam HX - Past Medical History Medical history: atrial fibrillation, coronary artery disease, hyperlipidemia, hypertension Additional medical history: pacemaker; stents Psychiatric history: no psych history - Past Surgical History Surgical History: pacemaker/AICD Additional surgical history: tubal, cardiac stents x 2 - Social History Smoking Status: Never smoker Smokeless Tobacco Status: No Alcohol use: none Drug use: none Medications and Allergies Aspirin Enteric Coated [Aspirin EC] 81 mg PO DAILY 12/26/14 [History] Atorvastatin [Lipitor] 40 mg PO DAILY 12/26/14 [History] Carvedilol [Coreg] 12.5 mg PO BID 12/26/14 [History] Alendronate Sodium [Fosamax] 70 mg PO MO 12/23/18 [History] Ferrous Sulfate [Iron] 325 mg PO DAILY 12/23/18 [History] Fluticasone Propionate Nasal [Flonase] 2 spray NS DAILY PRN 12/23/18 [History] Gabapentin [Neurontin] 900 mg PO HS 12/23/18 [History] Isosorbide MONOnitrate (24 HR) [Imdur] 90 mg PO QAM 12/23/18 [History] Omeprazole [PriLOSEC] 40 mg PO DAILY 12/23/18 [History] Warfarin Sodium 2.5 mg PO SUTUWETHFRSA 12/23/18 [History] Warfarin Sodium 5 mg PO MO 12/23/18 [History] Allergy/AdvReac Type Severity Reaction Status Date / Time ranolazine [From Ranexa] AdvReac Hallucinati Verified 12/23/18 20:20 ng All Systems Review: The remainder of the systems were reviewed and are negative Physical Examination Vital Signs, Last 4 Hours Temp Pulse Resp BP 12/24/18 11:46 98.5 F 69 16 143/82 General: Conversant, No Apparent Distress HEENT: Atraumatic, Normocephaly, Mucus Membranes Moist Neck: No JVD, Normal carotid pulses Cardiac: Reg Rate and Rhythm, Normal S1 and S2, Other (murmur) Lungs: Normal Breath Sounds, No Wheeze, Rales, Rhonchi Neuro: Alert and responsive, No focal deficits noted Abdomen: Soft, Non-Tender Skin: No rashes noted on visualized skin Musculoskeletal: No Chest Wall Tenderness Extremities: No Clubbing, No Cyanosis, No Edema, Normal Pulses Results 12/24/18 11:34 12/24/18 05:03 Lab Results 12/24/18 12/24/18 12/24/18 05:03 05:03 05:03 WBC 6.6 Hgb 9.1 L D Hct 30.0 L Plt Count 216 INR 2.5 Sodium 139 Potassium 3.8 Chloride 100 Carbon Dioxide 31 H BUN 12 Creatinine 0.79 Glucose 101 Calcium 7.9 L 12/24/18 11:34 WBC Hgb 10.0 L Hct 32.6 L Plt Count INR Sodium Potassium Chloride Carbon Dioxide BUN Creatinine Glucose Calcium - Imaging and Cardiology Echo: report reviewed Cardiac cath: report reviewed - EKG Interpretation EKG results cardiology: personally reviewed Consult Discharge Plan - Plan Referrals: Joanna Alvarado MD [Primary Care Provider] - <[facility] - Last Filed: 12/24/18 16:04> Date of Encounter: 12/24/18 - Attending Attestation I have personally performed a face to face evaluation on this patient. I have reviewed and agree with the care plan. History and Exam by me shows: Presents with CHF, cardiomyopathy is new form previous. Known significant CAD. Pacemaker, s/p AVN ablation. Will need diuresis and eventual ischemic evaluation. Depending on results could also be a candidate for upgrade to BIV pacer/ICD. Assessment and Plan Discussion w patient/family: The assessment and plan as outlined above was discussed with the patient and/or family members who expressed understanding and agreement. All questions were answered. Thank you for involving us in the care of your patient. Please call with any questions. History of Present Illness History of present illness: Ms. Correa is a 83 year old female All Systems Review: The remainder of the systems were reviewed and are negative Results 12/24/18 11:34 12/24/18 05:03 Lab Results 12/24/18 12/24/18 12/24/18 05:03 05:03 05:03 WBC 6.6 Hgb 9.1 L D Hct 30.0 L Plt Count 216 INR 2.5 Sodium 139 Potassium 3.8 Chloride 100 Carbon Dioxide 31 H BUN 12 Creatinine 0.79 Glucose 101 Calcium 7.9 L 12/24/18 11:34 WBC Hgb 10.0 L Hct 32.6 L Plt Count INR Sodium Potassium Chloride Carbon Dioxide BUN Creatinine Glucose Calcium
[2018-12-24] MEDS ORDERED: Fluticasone Propionate Nasal 50 MCG/SPRAY BOTTLE NS PRN (16:11)
[2018-12-24] MEDS: Furosemide 40 MG/4 ML VIAL IVP SCH (17:52)
[2018-12-25 04:31] LABS: Basophils % 0.7 %; Eosinophils # 0.2 K/mcL (0.0-0.6); Eosinophils % 2.6 %; Hematocrit 30.9 % (35.3-44.9); Hemoglobin 9.6 g/dL (11.5-15.4); Immature Granulocytes % 0.3 % (0-4); Lymphocytes # 1.2 K/mcL (0.6-4.6); Lymphocytes % 20.7 %; Mean Corpuscular HGB Conc 31.1 g/dL (31.6-35.5); Mean Corpuscular Hemoglobin 28.7 pg (28.0-33.3); Mean Corpuscular Volume 92.5 fL (83.0-100.0); Mean Platelet Volume 10.3 fL (9.4-12.4); Monocytes # 0.7 K/mcL (0.0-1.3); Monocytes % 11.7 %; Neutrophils # 3.7 K/mcL (1.6-8.9); Platelet Count 224 K/mcL (140-400); Red Blood Count 3.34 M/mcL (3.82-4.97); Red Cell Distribution Width 16.5 % (11.5-14.5); White Blood Count 5.8 K/mcL (4.3-11.1)
[2018-12-25 04:40] LABS: INR 2.1; Prothrombin Time 24.3 Seconds (9.4-12.1)
[2018-12-25 04:52] LABS: BUN/Creatinine Ratio 20 (6-26); Blood Urea Nitrogen 13 mg/dL (8-23); Calcium 7.8 mg/dL (8.6-10.3); Carbon Dioxide 33 mEq/L (23-29); Chloride 97 mEq/L (98-107); Glucose 107 mg/dL (70-105); Osmolality,Calculated 291 (280-300); Potassium 3.2 mEq/L (3.5-5.1); Sodium 140 mEq/L (136-145); eGFR For African Americans > 60 (> 60); eGFR For Non-African Americans > 60 (> 60)
[2018-12-25] MEDS: Isosorbide MONOnitrate (24 HR) 60 MG TAB.ER.24H PO SCH (08:13)
[2018-12-25] MEDS: Aspirin Enteric Coated 81 MG Tablet PO SCH (08:14)
[2018-12-25] MEDS: Furosemide 40 MG/4 ML VIAL IVP SCH ×2 (08:14→18:29)
--- NOTE | 2018-12-25 09:28 | Internal Med Progress Note ---
<LeagaelJimena - Last Filed: 12/25/18 11:13> Hospitalist Progress Note - Encounter Date of Encounter: 12/25/18 Time of Encounter: 09:55 - Exam Vitals: Temp Pulse Resp BP Pulse Ox 98.3 F 72 16 129/77 96 12/25/18 06:38 12/25/18 06:38 12/25/18 06:38 12/25/18 06:38 12/25/18 06:38 - Assessment and Plan (1) CHF (congestive heart failure) Current Visit: Yes Status: Acute (2) Atrial fibrillation Current Visit: Yes Status: Chronic (3) CAD (coronary artery disease) Current Visit: Yes Status: Chronic (4) HTN (hypertension) Current Visit: Yes Status: Chronic (5) Supratherapeutic INR Current Visit: Yes Status: Acute (6) Anemia Current Visit: Yes Status: Acute - Time Spent with Patient Total time spent is greater than 50% in coordination of care (as documented) at patient's floor/unit and/or counseling patient: Internal Medicine: Result - Labs CBC & Chem 7: 12/25/18 03:58 12/25/18 03:58 Labs: Short CBC 12/24/18 12/25/18 Range/Units 11:34 03:58 WBC 5.8 (4.3-11.1) K/mcL Hgb 10.0 L 9.6 L (11.5-15.4) g/dL Hct 32.6 L 30.9 L (35.3-44.9) % Plt Count 224 (140-400) K/mcL Neutrophils # 3.7 (1.6-8.9) K/mcL BMP 12/25/18 03:58 Sodium 140 Potassium 3.2 L Chloride 97 L Carbon Dioxide 33 H BUN 13 Creatinine 0.66 Glucose 107 H Calcium 7.8 L - ABG Interpretation ABG results: PT/INR, D-dimer PT 24.3 Seconds (9.4-12.1) H 12/25/18 03:58 Consult Discharge Plan - Plan Referrals: Joanna Alvarado MD [Primary Care Provider] - - Attending Attestation I saw evaluated and examined this patient and reviewed objective data including labs and my medical decision-making was reviewed with the Resident Physician, Pankaj Pérez. I agree with the documented findings, disposition and treatment plan as described except to any changes set forth below. We independently had [id number] contact with the patient. Patient feels somewhat better today. Shortness of breath and lower extremity swelling have improved. Denies any chest pain or palpitations. Continue intravenous Lasix. Monitor renal function. Replete potassium. Plan for left heart catheterization on Thursday per cardiology recommendations. Hemoglobin levels are stable at 9.6. Continue iron supplementation. INR 2.1 today. Continue to hold Coumadin in anticipation for left heart catheterization. <Pankaj Pérez - Last Filed: 12/25/18 19:06> Hospitalist Progress Note - Encounter Date of Encounter: 12/25/18 - Subjective Interval History: Pt seen and examined at bedside. No new or acute complaints. No acute events overnight. Reports SOB and LE edema improved. No fever, chills, chest pain, abdominal pain, nausea, vomiting, or urinary symptoms. - Exam Vitals: Temp Pulse Resp BP Pulse Ox 98.3 F 72 16 129/77 96 12/25/18 06:38 12/25/18 06:38 12/25/18 06:38 12/25/18 06:38 12/25/18 06:38 Exam: Constitutional: Old female in no acute distress Head: Normocephalic, atraumatic Eyes: PERRL, EOMI, conjunctiva pink, sclera anicteric Neck: Supple, trachea midline Lungs: Clear to auscultation bilaterally. Nonlabored breathing. No wheezes, rales, or rhonchi noted. Cardiac: RRR. +s1 +s2 No murmurs, clicks, or rubs noted. GI: Abdomen soft, nontender, mild abdominal distention. Normoactive bowel sounds Extremities: Warm, radial pulses palpable and symmetrical. No cyanosis or calf tenderness. Trace pitting edema in bilateral lower extremities Neuro: Alert and oriented 3. No focal deficits. Normal speech. Skin: Warm, dry, and intact. - Assessment and Plan (1) CHF (congestive heart failure) Current Visit: Yes Status: Acute Assessment and Plan: Presented with shortness of breath, orthopnea, and paroxysmal nocturnal dyspnea CT with pulmonary edema, bilateral pleural effusion, abdominal ascites, gallbladder wall edema and mesenteric edema. EKG with paced rhythm in troponin and unremarkable. BNP elevated at 1100 Last echo in 2014 with EF of 50% on last echocardiogram, with dilated left and right atrium. Repeat echocardiogram demonstrated LVEF 30-35% with global left ventricular systolic dysfunction Consult cardiology for further assistance with workup and management of the r educed ejection fraction heart failure Continue 2.5 mg lisinopril daily Lasix 40 twice a day IV strict I/O, daily weights Salt and 1.5 L fluid restricted diet (2) Atrial fibrillation Current Visit: Yes Status: Chronic Assessment and Plan: History of chronic A. fib on Coumadin and Coreg. Currently with paced rhythm Continue home beta octavio. Coumadin on hold as INR for LHC on thursday (3) CAD (coronary artery disease) Current Visit: Yes Status: Chronic Assessment and Plan: Without any chest pain Troponin negative Continue home aspirin, statin, beta octavio (4) HTN (hypertension) Current Visit: Yes Status: Chronic Assessment and Plan: Continue home Coreg, Imdur Lisinopril as above (5) Supratherapeutic INR Current Visit: Yes Status: Acute Assessment and Plan: INR of 3.9 on admission, decreased to 2.1 Continue to monitor hold home Coumadin for LHC per Cardio (6) Anemia Current Visit: Yes Status: Acute Assessment and Plan: Patient with anemia with hemoglobin 10.6 last normal is 2017 No elina blood in stool or urine. Patient denies any melena. INR is supratherapeutic and patient on Coumadin Iron panel demonstrates iron deficiency Suspect this is a chronic anemia at this time with no overt signs of bleeding, hemoglobin is stable today at 9.6 Continue to monitor and supplement with iron DVT Prophylaxis: Holding coumadin for supratherapeutic INR - Time Spent with Patient Total time spent is greater than 50% in coordination of care (as documented) at patient's floor/unit and/or counseling patient: Internal Medicine: Result - Labs CBC & Chem 7: 12/25/18 03:58 12/25/18 03:58 Labs: Short CBC 12/24/18 12/25/18 Range/Units 11:34 03:58 WBC 5.8 (4.3-11.1) K/mcL Hgb 10.0 L 9.6 L (11.5-15.4) g/dL Hct 32.6 L 30.9 L (35.3-44.9) % Plt Count 224 (140-400) K/mcL Neutrophils # 3.7 (1.6-8.9) K/mcL BMP 12/25/18 03:58 Sodium 140 Potassium 3.2 L Chloride 97 L Carbon Dioxide 33 H BUN 13 Creatinine 0.66 Glucose 107 H Calcium 7.8 L - ABG Interpretation ABG results: PT/INR, D-dimer PT 24.3 Seconds (9.4-12.1) H 12/25/18 03:58 - Impressions Impressions Echocardiogram 12/23/18 20:59 Impressions: LVEF 30-35%. Normal LV chamber size, wall thickness. Global left ventricular systolic dysfunction. Atypical septal motion consistent with bundle branch block. Indeterminate diastolic function. Mild aortic regurgitation. Normal right ventricular size, mildly reduced function. Mild mitral regurgitation. Moderate tricuspid regurgitation. Mild-moderate pulmonary hypertension. Device lead visualized in right sided chambers. Left Ventricular Wall Motion: Rest Echo Findings The apex, apical inferior, mid inferior, basal inferior, apical anterior, mid anterior, basal anterior, apical septal, mid inferior septal, basal inferior septal, apical lateral, mid anterior lateral, basal anterior lateral, mid anterior septal, mid inferior lateral, basal anterior septal and basal inferior lateral khoury were hypokinetic. Findings: Study Quality * Technically adequate exam. ECG Findings * Difficult to determine rhythm, bundle branch block noted. Left Ventricle * LVEF 30-35%. * Normal LV chamber size, wall thickness. * Global left ventricular systolic dysfunction. * Atypical septal motion consistent with bundle branch block. * Indeterminate diastolic function. Right Ventricle * Normal right ventricular size, mildly reduced function. Left Atrium * Severely dilated left atrium. Right Atrium * Severely dilated right atrium. Interatrial Septum * Interatrial septum not well evaluated. Aortic Valve * Bicuspid aortic valve. * Moderately calcified aortic valve leaflets. * Mild aortic regurgitation. * No aortic stenosis by Doppler. Visually, there appears to be at least mild stenosis. Mitral Valve * Mild mitral annular calcification * Mild mitral regurgitation. * No mitral stenosis. Tricuspid Valve * Normal tricuspid valve structure. * Moderate tricuspid regurgitation. * Mild-moderate pulmonary hypertension. Pulmonic Valve * Normal pulmonic valve structure. * Trace pulmonic regurgitation. Aorta * Normally sized aortic root. Pericardium * The pericardium appears normal. IVC * Normal IVC dimensions and inspiratory collapse. Pulmonary Artery * Normal visualized portions of the main pulmonary artery. <Jimena Charlton - Last Filed: 12/25/18 11:13> (1) CHF (congestive heart failure) Qualifiers: Heart failure type: combined systolic and diastolic Heart failure chronicity: acute on chronic Qualified Code(s): I50.43 - Acute on chronic combined systolic (congestive) and diastolic (congestive) heart failure (2) Atrial fibrillation Qualifiers: Atrial fibrillation type: chronic Qualified Code(s): I48.2 - Chronic atrial fibrillation (3) CAD (coronary artery disease) Qualifiers: Coronary Disease-Associated Artery/Lesion type: [place] artery [place] vs. transplanted heart: [place] heart Associated angina: without angina Qualified Code(s): I25.10 - Atherosclerotic heart disease of [place] coronary artery without angina pectoris (4) HTN (hypertension) Qualifiers: Hypertension type: essential hypertension Qualified Code(s): I10 - Essential (primary) hypertension (6) Anemia Qualifiers: Anemia type: unspecified type Qualified Code(s): D64.9 - Anemia, unspecified <Pankaj Pérez - Last Filed: 12/25/18 19:06> (1) CHF (congestive heart failure) Qualifiers: Heart failure type: combined systolic and diastolic Heart failure chronicity: acute on chronic Qualified Code(s): I50.43 - Acute on chronic combined systolic (congestive) and diastolic (congestive) heart failure (2) Atrial fibrillation Qualifiers: Atrial fibrillation type: chronic Qualified Code(s): I48.2 - Chronic atrial fibrillation (3) CAD (coronary artery disease) Qualifiers: Coronary Disease-Associated Artery/Lesion type: [place] artery [place] vs. transplanted heart: [place] heart Associated angina: without angina Qualified Code(s): I25.10 - Atherosclerotic heart disease of [place] coronary artery without angina pectoris (4) HTN (hypertension) Qualifiers: Hypertension type: essential hypertension Qualified Code(s): I10 - Essential (primary) hypertension (6) Anemia Qualifiers: Anemia type: unspecified type Qualified Code(s): D64.9 - Anemia, unspecified
--- NOTE | 2018-12-25 11:52 | Cardiology Progress Note ---
Date of Encounter: 12/25/18 Time of Encounter: 11:50 Assessment and Plan (1) Acute systolic CHF (congestive heart failure), NYHA class 4 Current Visit: Yes Status: Acute Acute decompensated biventricular heart failure. Presents with increasing MCCOY, abdominal distention, and weight gain. BNP 1117. CXR and CTA shows pulmonary edema, anasarca, cardiac liver cirrhosis. TTE shows EF 30-35%, Normal RV structure with mild reduction in function. Mild AR. Moderate TR. Mild to moderate PHT. EF in 2014 was 50%. Agree with IV lasix--on 40mg BID. net negative 4140ml. [facility] recommended when able for ischemic evaluation once stable from CHF and anemia standpoint. There is concern for anemia this admission--HGB 9.6 today. Consider GI evaluation if indicated. R/B/A of [facility] discussed and she agrees to proceed. Continue bb and aceI. (2) Atrial fibrillation Current Visit: Yes Status: Chronic H/o permanent afib s/p AV node ablation and single chamber PPM in 2011. May benefit from upgrade of PPM to dual chamber in future. On coumadin for long-term AC. Supratherapeutic on admission. Coumadin on hold. Hold for possible C thursday. Qualifiers: Atrial fibrillation type: chronic Qualified Code(s): I48.2 - Chronic atrial fibrillation (3) CAD (coronary artery disease) Current Visit: Yes Status: Chronic H/o CAD s/p PCI to LAD and RCA in 2011. Continue asa, statin, and bb. Qualifiers: Coronary Disease-Associated Artery/Lesion type: [place] artery [place] vs. transplanted heart: [place] heart Associated angina: without angina Qualified Code(s): I25.10 - Atherosclerotic heart disease of [place] coronary artery without angina pectoris Discussion w patient/family: The assessment and plan as outlined above was discussed with the patient and/or family members who expressed understanding and agreement. All questions were answered. Thank you for involving us in the care of your patient. Please call with any questions. Subjective Principal diagnosis: CHF Interval history: No acute complaints this AM. Reports dyspnea has improved. Objective Vital Signs Temp Pulse Resp BP Pulse Ox 12/25/18 06:38 98.3 F 72 16 129/77 96 12/25/18 05:26 98.1 F 72 14 141/80 99 12/24/18 20:53 97 12/24/18 16:33 85 18 145/80 Intake and Output 12/24/18 12/25/18 12/25/18 23:59 07:59 15:59 Intake Total 360 / 720 240 / 240 Output Total 2300 / 3500 400 / 1900 1500 / 1900 Balance -1940 / -2780 -400 / -1660 -1260 / -1660 Intake: Oral 360 / 720 240 / 240 Output: Urine 2300 / 3500 400 / 1900 1500 / 1900 Other: Meal Dinner Breakfast Percent of Meal Consumed 90% 100% General: Conversant, No Apparent Distress HEENT: Atraumatic, Normocephaly, Mucus Membranes Moist Neck: No JVD, Normal carotid pulses Cardiac: Other (irregular) Lungs: Other (diminished) Neuro: Alert and responsive, No focal deficits noted Abdomen: Soft, Non-Tender Skin: No rashes noted on visualized skin Musculoskeletal: No Chest Wall Tenderness Extremities: No Clubbing, No Cyanosis, No Edema, Normal Pulses Results 12/25/18 03:58 12/25/18 03:58 Lab Results 12/24/18 12/25/18 12/25/18 11:34 03:58 03:58 WBC 5.8 Hgb 10.0 L 9.6 L Hct 32.6 L 30.9 L Plt Count 224 INR 2.1 Sodium Potassium Chloride Carbon Dioxide BUN Creatinine Glucose Calcium 12/25/18 03:58 WBC Hgb Hct Plt Count INR Sodium 140 Potassium 3.2 L Chloride 97 L Carbon Dioxide 33 H BUN 13 Creatinine 0.66 Glucose 107 H Calcium 7.8 L Short CBC 12/25/18 12/24/18 Range/Units 03:58 11:34 WBC 5.8 (4.3-11.1) K/mcL Hgb 9.6 L 10.0 L (11.5-15.4) g/dL Hct 30.9 L 32.6 L (35.3-44.9) % Plt Count 224 (140-400) K/mcL Neutrophils # 3.7 (1.6-8.9) K/mcL BMP 12/25/18 Range/Units 03:58 Sodium 140 (136-145) mEq/L Potassium 3.2 L (3.5-5.1) mEq/L Chloride 97 L (98-107) mEq/L Carbon Dioxide 33 H (23-29) mEq/L BUN 13 (8-23) mg/dL Creatinine 0.66 (0.60-1.20) mg/dL Glucose 107 H (70-105) mg/dL Calcium 7.8 L (8.6-10.3) mg/dL Active Medications Acetaminophen (Tylenol) 650 mg PO Q6HR PRN PRN Reason: Pain Stop: 06/25/19 00:17 Last Admin: 12/24/18 06:17 Dose: 650 mg Documented by: Aspirin (Aspirin Ec) 81 mg PO DAILY [facility] Stop: 06/24/19 09:31 Last Admin: 12/25/18 08:14 Dose: 81 mg Documented by: Atorvastatin Calcium (Lipitor) 40 mg PO HS [facility] Stop: 06/24/19 21:01 Last Admin: 12/24/18 20:26 Dose: 40 mg Documented by: Carvedilol (Coreg) 12.5 mg PO BIDWM [facility]; Protocol Stop: 06/24/19 09:31 Last Admin: 12/25/18 08:13 Dose: 12.5 mg Documented by: Ferrous Sulfate (Ferrous Sulfate) 325 mg PO DAILY [facility] Stop: 06/24/19 09:31 Last Admin: 12/25/18 08:14 Dose: 325 mg Documented by: Fluticasone Propionate (Flonase) 100 mcg NS DAILY PRN; Protocol PRN Reason: Allergy Symptoms Stop: 06/25/19 16:12 Furosemide (Lasix) 40 mg IVP BIDDIURETIC JIAN Stop: 06/25/19 17:01 Last Admin: 12/25/18 08:14 Dose: 40 mg Documented by: Gabapentin (Neurontin) 900 mg PO HS [facility] Stop: 06/24/19 09:31 Last Admin: 12/24/18 20:26 Dose: 900 mg Documented by: Isosorbide Mononitrate (Imdur) 60 mg PO DAILY [facility] Stop: 06/24/19 09:31 Last Admin: 12/25/18 08:13 Dose: 60 mg Documented by: Lisinopril (Zestril) 2.5 mg PO DAILY [facility]; Protocol Stop: 06/25/19 11:16 Last Admin: 12/25/18 08:13 Dose: 2.5 mg Documented by: Omeprazole (Prilosec) 40 mg PO DAILY [facility] Stop: 06/24/19 09:31 Last Admin: 12/25/18 08:13 Dose: 40 mg Documented by: - Imaging and Cardiology Echo: report reviewed - EKG Interpretation EKG results cardiology: other (12 hr tele AVG HR 73, A-Fib) Consult Discharge Plan - Plan Referrals: Joanna Alvarado MD [Primary Care Provider] -
[2018-12-25] MEDS: Potassium Chloride Elixir 20 MEQ/15 ML UDC PO SCH (18:28)
[2018-12-25] MEDS ORDERED: traMADol 50 MG TABLET PO ONE (20:32)
[2018-12-25] MEDS: Gabapentin 300 MG CAPSULE PO SCH (21:12)
[2018-12-26 07:25] LABS: Basophils # 0.1 K/mcL (0.0-0.2); Eosinophils # 0.2 K/mcL (0.0-0.6); Eosinophils % 2.5 %; Hematocrit 32.7 % (35.3-44.9); Hemoglobin 10.1 g/dL (11.5-15.4); Immature Granulocytes % 0.3 % (0-4); Lymphocytes # 1.3 K/mcL (0.6-4.6); Lymphocytes % 19.8 %; Mean Corpuscular HGB Conc 30.9 g/dL (31.6-35.5); Mean Corpuscular Hemoglobin 28.7 pg (28.0-33.3); Mean Corpuscular Volume 92.9 fL (83.0-100.0); Mean Platelet Volume 10.5 fL (9.4-12.4); Monocytes # 0.7 K/mcL (0.0-1.3); Monocytes % 11.7 %; Neutrophils # 4.1 K/mcL (1.6-8.9); Platelet Count 249 K/mcL (140-400); Red Blood Count 3.52 M/mcL (3.82-4.97); Red Cell Distribution Width 16.5 % (11.5-14.5); Segmented Neutrophils % 64.7 %; White Blood Count 6.3 K/mcL (4.3-11.1)
--- NOTE | 2018-12-26 07:30 | Internal Med Progress Note ---
<Pankaj Pérez - Last Filed: 12/26/18 10:41> Hospitalist Progress Note - Encounter Date of Encounter: 12/26/18 Time of Encounter: 09:15 - Subjective Interval History: Patient seen and examined at bedside. No acute events overnight. No new or acute complaints. Denies any fever, chills, chest pain, shortness breath, abdominal pain, nausea, vomiting, headaches, numbness, or tingling. - Exam Vitals: Temp Pulse Resp BP Pulse Ox 98.4 F 71 14 139/85 96 12/26/18 06:41 12/26/18 06:41 12/26/18 06:41 12/26/18 06:41 12/26/18 06:41 Exam: Constitutional: Old female in no acute distress Head: Normocephalic, atraumatic Eyes: PERRL, EOMI, conjunctiva pink, sclera anicteric Neck: Supple, trachea midline Lungs: Clear to auscultation bilaterally. Nonlabored breathing. No wheezes, rales, or rhonchi noted. Cardiac: RRR. +s1 +s2 No murmurs, clicks, or rubs noted. GI: Abdomen soft, nontender, mild abdominal distention. Normoactive bowel sounds Extremities: Warm, radial pulses palpable and symmetrical. No cyanosis or calf tenderness. Trace pitting edema in bilateral lower extremities Neuro: Alert and oriented 3. No focal deficits. Normal speech. Skin: Warm, dry, and intact. - Assessment and Plan (1) CHF (congestive heart failure) Current Visit: Yes Status: Acute Assessment and Plan: Presented with shortness of breath, orthopnea, and paroxysmal nocturnal dyspnea CT with pulmonary edema, bilateral pleural effusion, abdominal ascites, gallbladder wall edema and mesenteric edema. EKG with paced rhythm in troponin and unremarkable. BNP elevated at 1100 Last echo in 2014 with EF of 50% on last echocardiogram, with dilated left and right atrium. Repeat echocardiogram demonstrated LVEF 30-35% with global left ventricular systolic dysfunction Consult cardiology - plan for left heart catheter on Thursday Nothing by mouth after midnight Continue 2.5 mg lisinopril daily Lasix 40 twice a day IV strict I/O, daily weights Salt and 1.5 L fluid restricted diet (2) Atrial fibrillation Current Visit: Yes Status: Chronic Assessment and Plan: History of chronic A. fib on Coumadin and Coreg. Currently with paced rhythm Continue home beta octaivo. Coumadin on hold as INR for LHC on thursday (3) CAD (coronary artery disease) Current Visit: Yes Status: Chronic Assessment and Plan: Without any chest pain Troponin negative Continue home aspirin, statin, beta octavio (4) HTN (hypertension) Current Visit: Yes Status: Chronic Assessment and Plan: Continue home Coreg, Imdur Lisinopril as above (5) Supratherapeutic INR Current Visit: Yes Status: Acute Assessment and Plan: INR of 3.9 on admission, decreased to 1.7 Continue to monitor hold home Coumadin for LHC per Cardio (6) Anemia Current Visit: Yes Status: Acute Assessment and Plan: Patient with anemia with hemoglobin 10.6 last normal is 2017 No elina blood in stool or urine. Patient denies any melena. INR is supratherapeutic and patient on Coumadin Iron panel demonstrates iron deficiency Suspect this is a chronic anemia at this time with no overt signs of bleeding, hemoglobin is stable today at 10.1 Continue to monitor and supplement with iron DVT Prophylaxis: Holding coumadin for supratherapeutic INR - Time Spent with Patient Total time spent is greater than 50% in coordination of care (as documented) at patient's floor/unit and/or counseling patient: Internal Medicine: Result - Labs CBC & Chem 7: 12/26/18 06:01 12/26/18 07:55 - ABG Interpretation ABG results: PT/INR, D-dimer PT 24.3 Seconds (9.4-12.1) H 12/25/18 03:58 Consult Discharge Plan - Plan Referrals: Joanna Alvarado MD [Primary Care Provider] - <Jimena Charlton - Last Filed: 12/26/18 11:42> Hospitalist Progress Note - Encounter Date of Encounter: 12/26/18 Time of Encounter: 10:10 - Exam Vitals: Temp Pulse Resp BP Pulse Ox 98.0 F 72 16 147/76 95 12/26/18 11:00 12/26/18 11:00 12/26/18 11:00 12/26/18 11:00 12/26/18 11:00 - Assessment and Plan (1) CHF (congestive heart failure) Current Visit: Yes Status: Acute (2) Atrial fibrillation Current Visit: Yes Status: Chronic (3) CAD (coronary artery disease) Current Visit: Yes Status: Chronic (4) HTN (hypertension) Current Visit: Yes Status: Chronic (5) Supratherapeutic INR Current Visit: Yes Status: Acute (6) Anemia Current Visit: Yes Status: Acute - Time Spent with Patient Total time spent is greater than 50% in coordination of care (as documented) at patient's floor/unit and/or counseling patient: Internal Medicine: Result - Labs CBC & Chem 7: 12/26/18 06:01 12/26/18 07:55 Labs: Short CBC 12/26/18 Range/Units 06:01 WBC 6.3 (4.3-11.1) K/mcL Hgb 10.1 L (11.5-15.4) g/dL Hct 32.7 L (35.3-44.9) % Plt Count 249 (140-400) K/mcL Neutrophils # 4.1 (1.6-8.9) K/mcL BMP 12/26/18 07:55 Sodium 138 Potassium 4.2 Chloride 100 Carbon Dioxide 34 H BUN 12 Creatinine 0.69 Glucose 105 Calcium 8.2 L - ABG Interpretation ABG results: PT/INR, D-dimer PT 18.9 Seconds (9.4-12.1) H 12/26/18 09:21 - Attending Attestation I saw evaluated and examined this patient and reviewed objective data including labs and my medical decision-making was reviewed with the Resident Physician, Pankaj Pérez. I agree with the documented findings, disposition and treatment plan as described except to any changes set forth below. We independently had [id number] contact with the patient. Patient is sitting up in bed. Denies any shortness of breath or chest pain at this time. No pedal edema. No fevers or chills reported overnight. Scheduled for left heart catheterization tomorrow. We will transition to oral Lasix today. Continue to monitor urine output. Cardiology following. <Jimena Charlton - Last Filed: 12/26/18 11:42> (1) CHF (congestive heart failure) Qualifiers: Heart failure type: combined systolic and diastolic Heart failure chronicity: acute on chronic Qualified Code(s): I50.43 - Acute on chronic combined systolic (congestive) and diastolic (congestive) heart failure (2) Atrial fibrillation Qualifiers: Atrial fibrillation type: chronic Qualified Code(s): I48.2 - Chronic atrial fibrillation (3) CAD (coronary artery disease) Qualifiers: Coronary Disease-Associated Artery/Lesion type: [place] artery [place] vs. transplanted heart: [place] heart Associated angina: without angina Qualified Code(s): I25.10 - Atherosclerotic heart disease of [place] coronary artery without angina pectoris (4) HTN (hypertension) Qualifiers: Hypertension type: essential hypertension Qualified Code(s): I10 - Essential (primary) hypertension (6) Anemia Qualifiers: Anemia type: unspecified type Qualified Code(s): D64.9 - Anemia, unspecified
[2018-12-26 08:38] LABS: BUN/Creatinine Ratio 17 (6-26); Blood Urea Nitrogen 12 mg/dL (8-23); Calcium 8.2 mg/dL (8.6-10.3); Carbon Dioxide 34 mEq/L (23-29); Chloride 100 mEq/L (98-107); Glucose 105 mg/dL (70-105); Osmolality,Calculated 286 (280-300); Potassium 4.2 mEq/L (3.5-5.1); Sodium 138 mEq/L (136-145); eGFR For African Americans > 60 (> 60); eGFR For Non-African Americans > 60 (> 60)
[2018-12-26 09:41] LABS: INR 1.7; Prothrombin Time 18.9 Seconds (9.4-12.1)
[2018-12-26] MEDS: Aspirin Enteric Coated 81 MG Tablet PO SCH (09:44)
[2018-12-26] MEDS: Isosorbide MONOnitrate (24 HR) 60 MG TAB.ER.24H PO SCH (09:45)
[2018-12-26] MEDS: Furosemide 40 MG/4 ML VIAL IVP SCH (09:51)
[2018-12-26] MEDS: Potassium Chloride Elixir 20 MEQ/15 ML UDC PO SCH (10:04)
--- NOTE | 2018-12-26 10:43 | Cardiology Progress Note ---
Date of Encounter: 12/26/18 Time of Encounter: 10:00 Assessment and Plan (1) Acute systolic CHF (congestive heart failure), NYHA class 4 Current Visit: Yes Status: Acute Acute decompensated biventricular heart failure. Presents with increasing MCCOY, abdominal distention, and weight gain. BNP 1117. CXR and CTA shows pulmonary edema, anasarca, cardiac liver cirrhosis. TTE shows EF 30-35%, Normal RV structure with mild reduction in function. Mild AR. Moderate TR. Mild to moderate PHT. EF in 2014 was 50%. Agree with IV lasix--on 40mg BID. net negative 5310ml. Near euvoelmic upon exam. [facility] recommended when able for ischemic evaluation once stable from CHF and anemia standpoint. There is concern for anemia this admission--HGB 10 today. Consider GI evaluation if indicated. R/B/A of LHC discussed and she agrees to proceed. Continue bb and aceI. As H/H remains stable, denies abnormal bleeding, d/w Dr. House, will plan for LHC in AM. NPO after MN except medications. (2) Atrial fibrillation Current Visit: Yes Status: Chronic H/o permanent afib s/p AV node ablation and single chamber PPM in 2011. May benefit from upgrade of PPM to dual chamber in future. On coumadin for rn ed AC. Supratherapeutic on admission. Coumadin on hold. Hold for possible LHC thursday. Qualifiers: Atrial fibrillation type: chronic Qualified Code(s): I48.2 - Chronic atrial fibrillation (3) CAD (coronary artery disease) Current Visit: Yes Status: Chronic H/o CAD s/p PCI to LAD and RCA in 2011. Continue asa, statin, and bb. Qualifiers: Coronary Disease-Associated Artery/Lesion type: [place] artery [place] vs. transplanted heart: [place] heart Associated angina: without angina Qualified Code(s): I25.10 - Atherosclerotic heart disease of [place] coronary artery without angina pectoris Discussion w patient/family: The assessment and plan as outlined above was discussed with the patient and/or family members who expressed understanding and agreement. All questions were answered. Thank you for involving us in the care of your patient. Please call with any questions. The patient will be discussed and reviewed with Dr. House; changes to be made accordingly. Subjective Principal diagnosis: CHF Interval history: Seen and examined. Near euvolemic upon exam. No chest pain reported. Reports significant dyspnea with minimal exertion. Objective General: Conversant, No Apparent Distress HEENT: Atraumatic, Normocephaly Cardiac: Reg Rate and Rhythm, Normal S1 and S2 Lungs: Normal Breath Sounds Neuro: Alert and responsive Abdomen: Soft Skin: No rashes noted on visualized skin Musculoskeletal: No Chest Wall Tenderness Extremities: No Edema, Normal Pulses Results 12/26/18 06:01 12/26/18 07:55 Lab Results 12/26/18 12/26/18 12/26/18 06:01 07:55 09:21 WBC 6.3 Hgb 10.1 L Hct 32.7 L Plt Count 249 INR 1.7 Sodium 138 Potassium 4.2 Chloride 100 Carbon Dioxide 34 H BUN 12 Creatinine 0.69 Glucose 105 Calcium 8.2 L Active Medications Acetaminophen (Tylenol) 650 mg PO Q6HR PRN PRN Reason: Pain Stop: 06/25/19 00:17 Last Admin: 12/24/18 06:17 Dose: 650 mg Documented by: Aspirin (Aspirin Ec) 81 mg PO DAILY [facility] Stop: 06/24/19 09:31 Last Admin: 12/26/18 09:44 Dose: 81 mg Documented by: Atorvastatin Calcium (Lipitor) 40 mg PO HS [facility] Stop: 06/24/19 21:01 Last Admin: 12/25/18 21:12 Dose: 40 mg Documented by: Carvedilol (Coreg) 12.5 mg PO BIDWM JIAN; Protocol Stop: 06/24/19 09:31 Last Admin: 12/26/18 09:44 Dose: 12.5 mg Documented by: Ferrous Sulfate (Ferrous Sulfate) 325 mg PO DAILY JIAN Stop: 06/24/19 09:31 Last Admin: 12/26/18 09:45 Dose: 325 mg Documented by: Fluticasone Propionate (Flonase) 100 mcg NS DAILY PRN; Protocol PRN Reason: Allergy Symptoms Stop: 06/25/19 16:12 Furosemide (Lasix) 40 mg IVP BIDDIURETIC JIAN Stop: 06/25/19 17:01 Last Admin: 12/26/18 09:51 Dose: 40 mg Documented by: Gabapentin (Neurontin) 900 mg PO HS JIAN Stop: 06/24/19 09:31 Last Admin: 12/25/18 21:12 Dose: 900 mg Documented by: Isosorbide Mononitrate (Imdur) 60 mg PO DAILY [facility] Stop: 06/24/19 09:31 Last Admin: 12/26/18 09:45 Dose: 60 mg Documented by: Lisinopril (Zestril) 2.5 mg PO DAILY [facility]; Protocol Stop: 06/25/19 11:16 Last Admin: 12/26/18 09:45 Dose: 2.5 mg Documented by: Omeprazole (Prilosec) 40 mg PO DAILY [facility] Stop: 06/24/19 09:31 Last Admin: 12/26/18 09:45 Dose: 40 mg Documented by: Potassium Chloride (Potassium Chloride) 40 meq PO DAILY [facility] Stop: 06/26/19 13:31 Last Admin: 12/26/18 10:04 Dose: 40 meq Documented by: - Imaging and Cardiology Echo: report reviewed Other Results: 12 hour tele: avg HR=75 - EKG Interpretation EKG results cardiology: personally reviewed Consult Discharge Plan - Plan Referrals: Joanna Alvarado MD [Primary Care Provider] -
[2018-12-26] MEDS: Furosemide 40 MG TABLET PO SCH (17:42)
[2018-12-26] MEDS: Gabapentin 300 MG CAPSULE PO SCH (20:18)
[2018-12-27 01:31] LABS: Basophils # 0.1 K/mcL (0.0-0.2); Basophils % 0.7 %; Eosinophils # 0.2 K/mcL (0.0-0.6); Eosinophils % 2.7 %; Hematocrit 34.6 % (35.3-44.9); Hemoglobin 10.8 g/dL (11.5-15.4); Immature Granulocytes % 0.4 % (0-4); Lymphocytes % 14.2 %; Mean Corpuscular HGB Conc 31.2 g/dL (31.6-35.5); Mean Corpuscular Hemoglobin 28.5 pg (28.0-33.3); Mean Corpuscular Volume 91.3 fL (83.0-100.0); Mean Platelet Volume 10.1 fL (9.4-12.4); Monocytes # 0.8 K/mcL (0.0-1.3); Monocytes % 11.5 %; Neutrophils # 4.9 K/mcL (1.6-8.9); Platelet Count 254 K/mcL (140-400); Red Blood Count 3.79 M/mcL (3.82-4.97); Red Cell Distribution Width 16.5 % (11.5-14.5); Segmented Neutrophils % 70.5 %
[2018-12-27 01:42] LABS: INR 1.5; Prothrombin Time 16.7 Seconds (9.4-12.1)
[2018-12-27 01:53] LABS: BUN/Creatinine Ratio 20 (6-26); Blood Urea Nitrogen 12 mg/dL (8-23); Calcium 8.1 mg/dL (8.6-10.3); Carbon Dioxide 29 mEq/L (23-29); Chloride 99 mEq/L (98-107); Glucose 103 mg/dL (70-105); Osmolality,Calculated 288 (280-300); Potassium 4.1 mEq/L (3.5-5.1); Sodium 139 mEq/L (136-145); eGFR For African Americans > 60 (> 60); eGFR For Non-African Americans > 60 (> 60)
--- NOTE | 2018-12-27 08:13 | Internal Med Progress Note ---
<Jimena Charlton - Last Filed: 12/27/18 17:53> Hospitalist Progress Note - Encounter Date of Encounter: 12/27/18 Time of Encounter: 10:40 - Exam Vitals: Temp Pulse Resp BP Pulse Ox 98.5 F 71 16 142/86 94 12/27/18 11:03 12/27/18 17:26 12/27/18 17:26 12/27/18 17:26 12/27/18 17:26 - Assessment and Plan (1) CHF (congestive heart failure) Current Visit: Yes Status: Acute (2) Atrial fibrillation Current Visit: Yes Status: Chronic (3) CAD (coronary artery disease) Current Visit: Yes Status: Chronic (4) HTN (hypertension) Current Visit: Yes Status: Chronic (5) Supratherapeutic INR Current Visit: Yes Status: Acute (6) Anemia Current Visit: Yes Status: Acute - Time Spent with Patient Total time spent is greater than 50% in coordination of care (as documented) at patient's floor/unit and/or counseling patient: Internal Medicine: Result - Labs CBC & Chem 7: 12/27/18 00:51 12/27/18 00:51 Labs: Short CBC 12/27/18 Range/Units 00:51 WBC 7.0 (4.3-11.1) K/mcL Hgb 10.8 L (11.5-15.4) g/dL Hct 34.6 L (35.3-44.9) % Plt Count 254 (140-400) K/mcL Neutrophils # 4.9 (1.6-8.9) K/mcL BMP 12/27/18 00:51 Sodium 139 Potassium 4.1 Chloride 99 Carbon Dioxide 29 BUN 12 Creatinine 0.59 L Glucose 103 Calcium 8.1 L - ABG Interpretation ABG results: PT/INR, D-dimer PT 16.7 Seconds (9.4-12.1) H 12/27/18 00:51 Consult Discharge Plan - Plan Referrals: Joanna Alvarado MD [Primary Care Provider] - - Attending Attestation I saw evaluated and examined this patient and reviewed objective data including labs and my medical decision-making was reviewed with the Resident Physician, Shaina Parrish. I agree with the documented findings, disposition and treatment plan as described except to any changes set forth below. We independently had [id number] contact with the patient. Evaluated patient earlier today. She has been nothing by mouth overnight due to plan left heart catheterization today. Will follow results. Tolerating oral Lasix dose. Shortness of breath has improved. Patient is able to lie down flat. Exertional dyspnea also improving. Denies any chest pain or palpitations. No fevers or chills reported overnight. Hemoglobin levels are stable. Will resume Coumadin post left heart catheterization provided no further intervention is necessary. <Shaina Parrish - Last Filed: 12/27/18 18:37> Hospitalist Progress Note - Encounter Date of Encounter: 12/27/18 Time of Encounter: 08:13 - Subjective Interval History: Patient was seen and examined at bedside this morning. Accompanied by family. No acute complaints at this time. Denies any chest pain, shortness of breath, palpitations, headaches, lightheadedness/dizziness, abdominal pain, nausea, vomiting, diarrhea. Vitals reviewed and stable. Plan for left heart catheter today this afternoon. - Exam Vitals: Temp Pulse Resp BP Pulse Ox 98.6 F 71 22 140/81 96 12/27/18 08:01 12/27/18 08:01 12/27/18 08:01 12/27/18 08:01 12/27/18 08:01 Exam: GEN: AOx3, no acute distress, Vitals reviewed and stable HEAD: Atraumatic, Normocephalic NECK: Supple. Full ROM. No anterior cervical lymphadenopathy HEART: RRR, S1/S2 present. No murmurs, rubs, gallops LUNGS: CTAB. no wheezes, rhonchi, rales, crackles ABD: Soft, non tender, non distended. Bowel sounds present. No rebound, guarding, rigidity. No RLQ tenderness EXT: No lower extremity edema. - Assessment and Plan (1) CHF (congestive heart failure) Current Visit: Yes Status: Acute Assessment and Plan: This is an 83-year-old female with past medical history significant for congestive heart failure status post pacemaker, A. fib on Coumadin, coronary artery disease (last stents in 2011), hypertension who initially presented with shortness of breath plus leg swelling and paroxysmal nocturnal dyspnea plus orthopnea for 3 weeks prior to presentation. - Initial CT did show pulmonary edema, bilateral pleural effusion, abdominal ascites, gallbladder wall edema and mesenteric edema - BNP was elevated = 1100 - Echocardiography (12/23/18) = LVEF 30-35%. Normal LV chamber size and wall thickness, but global left ventricular systolic dysfunction. Atypical septal motion consistent with bundle branch block. Indeterminant diastolic function. PLAN: - Plan for left heart cath today - Follow up cardiology recommendations after catheter today - Continue 25 mg lisinopril daily - Continue Lasix 40 mg twice a day - Strict I's and O's - Daily weights - 1.5 L fluid ejection diet - Salt restricted diet (2) Atrial fibrillation Current Visit: Yes Status: Chronic Assessment and Plan: History of chronic A. fib, on Coumadin and Coreg - Paced rhythm noted PLAN: - Continue beta octavio - Hold Coumadin prior to procedure (3) CAD (coronary artery disease) Current Visit: Yes Status: Chronic Assessment and Plan: No current cardiac symptoms - Troponins were negative PLAN: - Continue aspirin, statin, beta octavio - Continue JULIAN inhibitor and Imdur - Follow up cardiology recommendations after left heart catheter (4) HTN (hypertension) Current Visit: Yes Status: Chronic Assessment and Plan: Continue to monitor BP PLAN: - Continue beta octavio and JULIAN inhibitor (5) Anemia Current Visit: Yes Status: Acute Assessment and Plan: Hemoglobin/hematocrit = 10.8/34.6 PLAN: - Cont to monitor - Continue iron supplementation DVT Prophylaxis: Coumadin (to be resumed after procedure) - Time Spent with Patient Total time spent is greater than 50% in coordination of care (as documented) at patient's floor/unit and/or counseling patient: less than 15 minutes Plan of Care Discussed with: patient Internal Medicine: Result - Labs CBC & Chem 7: 12/27/18 00:51 12/27/18 00:51 Labs: Short CBC 12/27/18 Range/Units 00:51 WBC 7.0 (4.3-11.1) K/mcL Hgb 10.8 L (11.5-15.4) g/dL Hct 34.6 L (35.3-44.9) % Plt Count 254 (140-400) K/mcL Neutrophils # 4.9 (1.6-8.9) K/mcL BMP 12/26/18 12/27/18 07:55 00:51 Sodium 138 139 Potassium 4.2 4.1 Chloride 100 99 Carbon Dioxide 34 H 29 BUN 12 12 Creatinine 0.69 0.59 L Glucose 105 103 Calcium 8.2 L 8.1 L - ABG Interpretation ABG results: PT/INR, D-dimer PT 16.7 Seconds (9.4-12.1) H 12/27/18 00:51 <Jimena Charlton - Last Filed: 12/27/18 17:53> (1) CHF (congestive heart failure) Qualifiers: Heart failure type: combined systolic and diastolic Heart failure chronicity: acute on chronic Qualified Code(s): I50.43 - Acute on chronic combined systolic (congestive) and diastolic (congestive) heart failure (2) Atrial fibrillation Qualifiers: Atrial fibrillation type: chronic Qualified Code(s): I48.2 - Chronic atrial fibrillation (3) CAD (coronary artery disease) Qualifiers: Coronary Disease-Associated Artery/Lesion type: [place] artery [place] vs. transplanted heart: [place] heart Associated angina: without angina Qualified Code(s): I25.10 - Atherosclerotic heart disease of [place] coronary artery without angina pectoris (4) HTN (hypertension) Qualifiers: Hypertension type: essential hypertension Qualified Code(s): I10 - Essential (primary) hypertension (6) Anemia Qualifiers: Anemia type: unspecified type Qualified Code(s): D64.9 - Anemia, unspecified <Shaina Parrish - Last Filed: 12/27/18 18:37> (1) CHF (congestive heart failure) Qualifiers: Heart failure type: combined systolic and diastolic Heart failure chronicity: acute on chronic Qualified Code(s): I50.43 - Acute on chronic combined systolic (congestive) and diastolic (congestive) heart failure (2) Atrial fibrillation Qualifiers: Atrial fibrillation type: chronic Qualified Code(s): I48.2 - Chronic atrial fibrillation (3) CAD (coronary artery disease) Qualifiers: Coronary Disease-Associated Artery/Lesion type: [place] artery [place] vs. transplanted heart: [place] heart Associated angina: without angina Qualified Code(s): I25.10 - Atherosclerotic heart disease of [place] coronary artery without angina pectoris (4) HTN (hypertension) Qualifiers: Hypertension type: essential hypertension Qualified Code(s): I10 - Essential (primary) hypertension (5) Anemia Qualifiers: Anemia type: unspecified type Qualified Code(s): D64.9 - Anemia, unspecified
[2018-12-27] MEDS: Furosemide 40 MG TABLET PO SCH ×2 (08:50→19:15)
[2018-12-27] MEDS: Isosorbide MONOnitrate (24 HR) 60 MG TAB.ER.24H PO SCH (08:50)
[2018-12-27] MEDS: Aspirin Enteric Coated 81 MG Tablet PO SCH (08:51)
[2018-12-27] MEDS: Potassium Chloride Elixir 20 MEQ/15 ML UDC PO SCH (08:53)
[2018-12-27] MEDS ORDERED: Iopamidol 125 ML INFUS..BTL ONE ×3 (15:00→15:54)
[2018-12-27] MEDS ORDERED: Verapamil 5 MG/2 ML VIAL ONE (15:00)
[2018-12-27] MEDS ORDERED: *HR* Heparin 10,000 UNIT/10 ML VIAL ONE (15:00)
[2018-12-27] MEDS ORDERED: Heparin 1,000 UNITS/500 mL 500 ML ONE (15:00)
[2018-12-27] MEDS ORDERED: Nitroglycerin 1,000 MCG/10 ML VIAL IV ONE (15:01)
[2018-12-27] MEDS ORDERED: 0.9 % Sodium Chloride 1,000 ML ONE ×2 (15:01→15:46)
[2018-12-27] MEDS ORDERED: *HR* Midazolam HCl 2 MG/2 ML VIAL ONE (15:36)
[2018-12-27] MEDS ORDERED: *HR* FentaNYL (PF) 100 MCG/2 ML VIAL ONE (15:36)
--- NOTE | 2018-12-27 15:46 | Pre-Sedation Evaluation ---
Pre-sedation evaluation - Pre-sedation checklist Date of procedure: 12/27/18 Procedure: [facility] Recent Vitals: Last Vital Signs Temp 98.5 F 12/27/18 11:03 Pulse 69 12/27/18 11:03 Resp 18 12/27/18 11:03 BP 120/86 12/27/18 11:03 Pulse Ox 95 12/27/18 11:03 H&P (including ROS) documented in medical record: Yes Previous reaction to sedatives/anesthetics: No Dietary Status: NPO after Midnight Airway Assessment: Patient can open mouth completely, TMJ function normal ASA Classification *see protocol: CLASS II-Mild systemic disease Plan of Care: Pt appropriate candidate for procedure/moderate/conscious sedation, Risks/benefits of procedure/sedation discussed w/ patient/family Cardiac Registry (Cardio Only) - Functional Capacity Functional Capacity: >=4 METS with symptoms - Clincal Frailty Scale Clinical Frailty Scale: Managing Well
--- NOTE | 2018-12-27 16:16 | Event Note ---
Date of Encounter: 12/27/18 Time of Encounter: 16:00 - Cardiology Event Note Prelim [facility] reviewed with PETROS Zur[place], medical therapy recommended. Full report pending. Continue GDMT for CHF, EF 30%. Continue coreg, lisinopril, imdur, and lasix. Will coordinate outpatient follow-up with Dr. Crow House to evaluate need for upgrade of PPM. Hx of single lead PPM s/p AV dorys ablation. No further inpt recommendations, Cardiology will sign-off. Discussed and reviewed with Dr. Hardy who agrees with plan.
--- NOTE | 2018-12-27 16:25 | Invasive Diagnostic Lab Proc ---
Name: Hortencia Correa Date of Study: 12/27/2018 Date: 1935 Ht: 66.9in Medical Record#: [id number] Age: 83 Wt: 154.32lb Gender: Female BSA: 1.81 Order #: [id number] BMI: 24.22 Physicians Procedure Physician: Hood Moran MD, [facility] Referring MD: Referring MD: Staff Name Position Time In Tiarra Lang RN Monitor 03:46 PM Elyssa Martinez RT (R) Scrub 03:46 PM Leodan Gagnon RN Wallpaperer 03:46 PM Theresa Trevino RT (R) Scrub 03:46 PM Procedures Performed Procedure L HRT ARTERY/VENTRICLE ANGIO Pre-Procedure Checklist Informed consent is complete signed and on chart. H&P is on chart. ID band is on and ID verified with patient. Patient NPO for procedure The procedure was described for the patient and questions were answered. ECG is on chart. Plan of Care Patient will tolerate the procedure without complications. Adequate level of comfort will be maintained. Hemodynamics will remain stable Patient will recover from procedure without complications. Respiratory function will be maintained. Cardiac rhythm will remain stable. Patient temperature will be maintained. Patient and/or family have verbalized understanding of the procedure. Patient Education Chief Complaint/Reason for Test: Cardiac Cath Developmental Category: Geriatric (65+ years) Developmentally Appropriate for Age: Yes Learning Barriers: None Education Needs: Procedure Education Method: Verbal Information Taught: Cardiac Cath Educational Evaluation: Able to repeat information Intravenous Access Time IV Size Location DC'd Fluid/Drip Rate Units RN 20g 1 1/4" Patent On Arrival Lt Wrist Allergies ranolazine Vital Signs Time BP (mmHg) HR (bpm) O2 Sat. RR (bpm) LOC 03:47 PM / % 5 = Fully awake and oriented or at pre-proc level 03:47 PM / % 4 = Oriented but drowsy 03:51 PM 151 / 82 72 96 % 14 03:55 PM 145 / 67 72 93 % 48 04:00 PM 124 / 64 69 91 % 36 04:05 PM 120 / 64 69 93 % 20 Procedural Medications Time Medication Dose Units Method Given By 03:49 PM Oxygen 2 L/min nasal cannula Leodan Gagnon RN 03:49 PM Versed 2 mg Intravenous Leodan Gagnon RN 03:49 PM Fentanyl 50 mcg Intravenous Gagnon, Leodan RN 03:55 PM Lidocaine 2% 20 ml Subcutaneous Hood Moran MD, [facility] ASA Classification: CLASS II- Mild systemic disease (i.e. well-controlled diabetes, hypertension, asthma, cigarette smoking) Teressa Score Preprocedure Postprocedure Activity 2- Moves 4 extremities sustained head lift Activity 2- Moves 4 extremities sustained head lift Circulation 2- SBP +/= 20 points of pre-anesthetic level Circulation 2- SBP +/= 20 points of pre-anesthetic level Consciousness 2- Awake and alert oriented x 3 Consciousness 2- Awake and alert oriented x 3 O2 Saturation 2- Able to maintain O2 satruation of 92% on room air O2 Saturation 2- Able to maintain O2 satruation of 92% on room air Respiratory 2- Able to deep breathe and cough well Respiratory 2- Able to deep breathe and cough well Total Score 10 Total Score 10 Contrast Agent: Isovue Diagnostic Contrast: 70 ml Total Contrast: 70 ml Fluoro Dose: 18 mGy Procedure Log Time Note Enter By 03:39 PM CathStat 03:45 PM CathStat 03:46 PM Pt arrived to laboratory tester 2 at 15:46 kmavis 03:46 PM Tiarra Lang RN Position: Monitor Time in: 15:46 kmavis 03:46 PM Elyssa Martinez RT (R) Position: Scrub Time in: 15:46 kmavis 03:46 PM Leodan Gagnon RN Position: Wallpaperer Time in: 15:46 kmavis 03:46 PM Theresa Trevino RT (R) Position: Scrub Time in: 15:46 kmavis 03:46 PM Patient charges- Angio tray pack, Navilyst 3mm J, Pulse Oximetry and ACIST tubing and transducer kmavis 03:47 PM Case Delayed No kmavis 03:47 PM Physician arrived 15:47 kmavis 03:47 PM Meet and greet completed kmavis 03:47 PM Sign in performed according to hospital policy. Informed consent was obtained. kmavis 03:47 PM Time: 15:47 Patient comfortable and pain free: Yes kmavis 03:47 PM Time: 15:47LOC: 5 = Fully awake and oriented or at pre-proc level kmavis 03:48 PM Vitals capture started with the following parameters, Patient=Adult, Interval=5 min, Initial Bgnmvzxh=251 mmHg, Deflation Rate=3 mmHg, Cuff placed on Right Arm 03:48 PM Procedure start 15:48 kmavis 03:48 PM Vitals capture stopped. 03:49 PM Vitals capture started with the following parameters, Patient=Adult, Interval=5 min, Initial Qaoqcuig=353 mmHg, Deflation Rate=3 mmHg, Cuff placed on Right Arm 03:49 PM Time: 15:49 Oxygen on at 2 L/min per nasal cannula by Leodan Gagnon RN kmavis 03:49 PM Time: 15:49 Versed 2 mg Intravenous Given by Leodan Gagnon RN kmavis 03:49 PM Time: 15:49 Fentanyl 50 mcg Intravenous Given by Leodan Gagnon RN kmavis 03:51 PM HR=72 bpm, ZIXJ=803/82 mmhg, SpO2=96.0 %, Resp=14 B/min, EtCO2=26 mmHg 03:51 PM ASA Class CLASS II- Mild systemic disease (i.e. well-controlled diabetes, hypertension, asthma, cigarette smoking) kmavis 03:52 PM Pressure channel 1 zeroed. 03:55 PM Time out was performed according to hospital policy. Conscious sedation and anesthesia was achieved (see medication log with in this report above) kmavis 03:55 PM HR=72 bpm, PTYX=813/67 mmhg, SpO2=93.0 %, Resp=48 B/min 03:55 PM Recorded ECG: HR=72 Condition=Condition 1 03:56 PM Time: 15:55 20 ml Lidocaine 2% to right groin Subcutaneous Given by Hood Moran MD, [facility] kmavis 03:57 PM Micro-Introducer Kit utilized for sheath placement kmavis 03:58 PM Access obtained by percutaneous puncture. 5Fr 10cm Terumo [place] sheath placed in artery. [id number] kmavis 03:58 PM 5Fr FL 4 catheter inserted over the wire [facility] kmavis 03:58 PM 0.035 145cm Navilyst 3mmJ wire [id number] kmavis 03:58 PM LCA angiography performed in multiple views. kmavis 03:59 PM Recorded Pressure: Ao, HR=70, Condition=Condition 1 (Aorta) Ao 109/53/77 04:00 PM HR=69 bpm, ITOW=621/64 mmhg, SpO2=91.0 %, Resp=36 B/min 04:01 PM Catheter removed kmavis 04:01 PM 5Fr FR 4 catheter inserted over the wire [facility] kmavis 04:01 PM RCA angiography performed in multiple views. kmavis 04:02 PM Lesion found in Distal LMCA. Pre Stenosis: 30 Pre JOSE M Flow: kmavis 04:02 PM Lesion found in Mid LAD. Pre Stenosis: 60 Pre JOSE M Flow: kmavis 04:02 PM Time: 15:47 Patient comfortable and pain free: Yes kmavis 04:02 PM Time: 15:47LOC: 4 = Oriented but drowsy kmavis 04:02 PM Lesion found in Proximal Circumflex. Pre Stenosis: 40 Pre JOSE M Flow: kmavis 04:03 PM Recorded Pressure: Ao, HR=70, Condition=Condition 1 (Aorta) Ao 77/48/61 04:05 PM Recorded Pressure: LV, HR=70, Condition=Condition 1 (Left Ventricle) LV 124/-3/7 04:05 PM HR=69 bpm, RTRD=422/64 mmhg, SpO2=93.0 %, Resp=20 B/min 04:05 PM Recorded Pressure: LV, Ao, HR=72, Condition=Condition 1 (Left Ventricle) LV 119/-2/8, (Aorta) Ao 112/46/71 04:06 PM Catheter removed kmavis 04:06 PM Coronary Dominance: right kmavis 04:07 PM 5Fr Pigtail catheter inserted over the wire [facility] kmavis 04:07 PM Catheter crossed the aortic valve and was selectively placed in the left ventricle. Pressures recorded on pullback for left heart catheterization. kmavis 04:07 PM Bolus angiogram of left Ventricle complete: 10 ml/sec for a total of 20 mls kmavis 04:07 PM Catheter removed kmavis 04:10 PM Lesion found in Proximal RCA. Pre Stenosis: 50 Pre JOSE M Flow: kmavis 04:10 PM Lesion found in Distal RCA. Pre Stenosis: 70 Pre JOSE M Flow: kmavis 04:10 PM Lesion found in Right PDA. Pre Stenosis: 70 Pre JOSE M Flow: kmavis 04:11 PM Procedure completed at 16:11 12/27/2018 kmavis 04:11 PM Did you address JOSE M flow and Dominance? YesCoronary Dominance: right kmavis 04:11 PM Sign out completed: Radiation Dose 135.16 mGy, 17.6 Gy/cm2 Fluoro Time: 1.2 Isovue 370 - 200ml contrast 70 ml given by Hood Moran MD, [facility]. Complications: None. 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 Sedation minutes 20. Cardiac Rehab Consult needed: No. Confirmed administered medications: Yes kmavis 04:11 PM Isovue 370 - 200ml,1 Bottle(s) used. kmavis 04:12 PM Arterial sheath pulled, Mynx closure device used and was Successful [id number] S/N. kmavis 04:12 PM Estimated Blood Loss: minimal kmavis 04:12 PM Post Blood Pressure 117/68 kmavis 04:12 PM Information taught Cardiac Cath and Mynx kmavis 04:12 PM Education needs Procedure, Plan of Care, and Disease Process kmavis 04:12 PM Learning barriers :None kmavis 04:12 PM Education Methods Verbal kmavis 04:12 PM Education evaluation Able to repeat information kmavis 04:12 PM Site status No bleeding/ No Hematoma - Rt Groin as reported by Theresa Trevino RT (R) at 16:12 kmavis 04:12 PM Opsite applied kmavis 04:16 PM Report given to Josselyn MEIER Pt taken to 2NE Room #21. 16:16 kmavis 04:17 PM Plavix, Effient or Brilinta given No kmavis 04:17 PM Delay to floor No kmavis 04:17 PM Patient out of room: 16:17 kmavis 04:17 PM Family placed in consult room. kmavis 04:17 PM Complications: None kmavis Complications Complication None None Hemodynamics Pressures Site Systolic/A Wave Diastolic/V Wave Mean AO 109 53 77 AO 77 48 61 LV 124 -3 7 LV 119 -2 8 AO 112 46 71 Post Procedure Information Blood Pressure: 117/68 mmHg Post procedural instructions were given Closure Device Time Device Success/Fail 12/27/2018 4:18:00 PM MynxGrip Successful Site Checks Time Location Status Staff Sheath In? Note 04:12 PM Rt Groin No bleeding/ No Hematoma Theresa Trevino RT (R) Pulses Updated by Tiarra Lang RN on 12/27/2018 4:19:57 PM electronically signed on 12/27/2018 4:20:21 PM with status of Final
[2018-12-27] MEDS ORDERED: Warfarin perPT PO PRN (18:00)
[2018-12-27] MEDS ORDERED: *HR* Warfarin 5 MG TABLET PO ONE (19:00)
--- NOTE | 2018-12-27 19:26 | Event Note ---
Date of Encounter: 12/27/18 Time of Encounter: 19:21 I was alerted by the nurse to come and evaluate patient as she was complaining about right medial leg numbness after left heart catheter procedure. Patient had right femoral catheter procedure. Catheter site was clean, dry, intact. There is no evidence of bleeding, bruising, flank tenderness or bruising, abdominal tenderness. Femoral pulse in the right side was palpable. Distal pulses are also palpable. Leg was warm to touch. Good capillary refill. Patient has 5 out of 5 strength of right lower extremity. She reports numbness of the inner aspect of the right thigh to just below the right knee. I did advise nursing staff to continue to monitor patient for worsening symptoms. At this point in time, I do not believe CT of the leg or abdomen is necessary to rule out retroperitoneal bleed. Symptoms may be due to transient neuralgia postoperatively. However, I did advise the patient and nursing staff that the patient continues to have worsening symptoms, worsening numbness, leg weakness, lower extremity pain, change in temp of lower extremity, bruising or flank pain/tenderness, that they should follow-up with hospitalist and/or cardiology for further recommendations.
[2018-12-27] MEDS: Gabapentin 300 MG CAPSULE PO SCH (20:49)
[2018-12-28 05:00] LABS: Basophils # 0.1 K/mcL (0.0-0.2); Basophils % 1.1 %; Eosinophils # 0.2 K/mcL (0.0-0.6); Hematocrit 36.5 % (35.3-44.9); Hemoglobin 11.6 g/dL (11.5-15.4); Immature Granulocytes % 0.3 % (0-4); Lymphocytes # 0.9 K/mcL (0.6-4.6); Mean Corpuscular HGB Conc 31.8 g/dL (31.6-35.5); Mean Corpuscular Hemoglobin 28.9 pg (28.0-33.3); Mean Platelet Volume 9.6 fL (9.4-12.4); Monocytes # 0.7 K/mcL (0.0-1.3); Monocytes % 10.6 %; Neutrophils # 5.1 K/mcL (1.6-8.9); Platelet Count 260 K/mcL (140-400); Red Blood Count 4.01 M/mcL (3.82-4.97); Red Cell Distribution Width 16.5 % (11.5-14.5)
[2018-12-28 05:09] LABS: INR 1.4; Prothrombin Time 15.4 Seconds (9.4-12.1)
[2018-12-28 05:18] LABS: BUN/Creatinine Ratio 20 (6-26); Blood Urea Nitrogen 14 mg/dL (8-23); Calcium 8.9 mg/dL (8.6-10.3); Carbon Dioxide 29 mEq/L (23-29); Chloride 100 mEq/L (98-107); Glucose 97 mg/dL (70-105); Osmolality,Calculated 284 (280-300); Potassium 4.3 mEq/L (3.5-5.1); Sodium 137 mEq/L (136-145); eGFR For African Americans > 60 (> 60); eGFR For Non-African Americans > 60 (> 60)
[2018-12-28 07:18] VITALS: BP 154/86
[2018-12-28] MEDS: Potassium Chloride Elixir 20 MEQ/15 ML UDC PO SCH (08:21)
[2018-12-28] MEDS: Aspirin Enteric Coated 81 MG Tablet PO SCH (08:24)
[2018-12-28] MEDS: Furosemide 40 MG TABLET PO SCH ×2 (08:25→17:51)
[2018-12-28] MEDS: Isosorbide MONOnitrate (24 HR) 60 MG TAB.ER.24H PO SCH (08:25)
--- NOTE | 2018-12-28 11:08 | Discharge Summary ---
<Jimena Charlton - Last Filed: 12/28/18 16:10> Orders not resulted at time of discharge: Pending orders 12/23/18 09:09 Occult Blood,Stool [BF] Routine Date of Encounter: 12/28/18 Time of Encounter: 10:20 - Discharge Diagnosis (1) CHF (congestive heart failure) Status: Acute Qualifiers: Heart failure type: combined systolic and diastolic Heart failure chronicity: acute on chronic Qualified Code(s): I50.43 - Acute on chronic combined systolic (congestive) and diastolic (congestive) heart failure (2) Atrial fibrillation Status: Chronic Qualifiers: Atrial fibrillation type: chronic Qualified Code(s): I48.2 - Chronic atrial fibrillation (3) CAD (coronary artery disease) Status: Chronic Qualifiers: Coronary Disease-Associated Artery/Lesion type: [place] artery [place] vs. transplanted heart: [place] heart Associated angina: without angina Qualified Code(s): I25.10 - Atherosclerotic heart disease of [place] coronary artery without angina pectoris (4) HTN (hypertension) Status: Chronic Qualifiers: Hypertension type: essential hypertension Qualified Code(s): I10 - Essential (primary) hypertension (5) Supratherapeutic INR Status: Acute (6) Anemia Status: Acute Qualifiers: Anemia type: unspecified type Qualified Code(s): D64.9 - Anemia, unspecified Hospital course: Ms. Correa is a 83 year old female - Time Spent with Patient Total time spent providing and/or coordinating discharge services: - Discharge Medications Prescriptions: New Furosemide [Lasix] 40 mg PO BIDDIURETIC #60 tablet Lisinopril [Zestril] 5 mg PO DAILY #30 tablet Continued Carvedilol [Coreg] 12.5 mg PO BID Atorvastatin [Lipitor] 40 mg PO DAILY Aspirin Enteric Coated [Aspirin EC] 81 mg PO DAILY Alendronate Sodium [Fosamax] 70 mg PO MO Gabapentin [Neurontin] 900 mg PO HS Omeprazole [PriLOSEC] 40 mg PO DAILY Ferrous Sulfate [Iron] 325 mg PO DAILY Warfarin Sodium 5 mg PO MO Warfarin Sodium 2.5 mg PO SUTUWETHFRSA Isosorbide MONOnitrate (24 HR) [Imdur] 90 mg PO QAM Fluticasone Propionate Nasal [Flonase] 2 spray NS DAILY PRN PRN Reason: Allergy Symptoms Home Medications: Aspirin Enteric Coated [Aspirin EC] 81 mg PO DAILY 12/26/14 [History] Atorvastatin [Lipitor] 40 mg PO DAILY 12/26/14 [History] Carvedilol [Coreg] 12.5 mg PO BID 12/26/14 [History] Alendronate Sodium [Fosamax] 70 mg PO MO 12/23/18 [History] Ferrous Sulfate [Iron] 325 mg PO DAILY 12/23/18 [History] Fluticasone Propionate Nasal [Flonase] 2 spray NS DAILY PRN 12/23/18 [History] Gabapentin [Neurontin] 900 mg PO HS 12/23/18 [History] Isosorbide MONOnitrate (24 HR) [Imdur] 90 mg PO QAM 12/23/18 [History] Omeprazole [PriLOSEC] 40 mg PO DAILY 12/23/18 [History] Warfarin Sodium 2.5 mg PO SUTUWETHFRSA 12/23/18 [History] Warfarin Sodium 5 mg PO MO 12/23/18 [History] Furosemide [Lasix] 40 mg PO BIDDIURETIC #60 tablet 12/28/18 [Rx] Lisinopril [Zestril] 5 mg PO DAILY #30 tablet 12/28/18 [Rx] Allergies/Adverse Reactions: Allergy/AdvReac Type Severity Reaction Status Date / Time ranolazine [From Ranexa] AdvReac Hallucinati Verified 12/23/18 20:20 ng Date of admission: 12/25/18 08:47 Primary care physician: Joanna Alvarado MD Consults: 12/24/18 11:01 Consult to Cardiology [CONS] Routine Comment: Consulting Provider: Cardiology Daria Reason for Consult: CHF exacerbation. Updated echo shows EF 30-35% with global LV systolic dysfunction. Call Completed: No 12/28/18 08:26 Consult to Occupational Therapy [CONS] Routine Comment: Evaluate, develop and implement POC Reason for Consult: Gen weakness Does patient have active BEDREST order?: No Is patient medically & hemodynamically stable?: Yes Consult to Physical Therapy [CONS] Routine Comment: Evaluate, develop and implement POC Reason for Consult: Gen weakness Does patient have active BEDREST order?: No Is patient medically & hemodynamically stable?: Yes - Constitutional Vitals: Temp Pulse Resp BP Pulse Ox 99.2 F 74 16 154/86 91 12/28/18 07:15 12/28/18 07:15 12/28/18 07:15 12/28/18 07:15 12/28/18 07:15 - Patient Status Disposition: Home, Self-Care Condition: Good - Discharge Instructions Instructions: Heart Failure (DC), Atrial Fibrillation (DC) Follow Up With: Joanna Alvarado MD [Primary Care Provider] - 01/03/19 11:45 am Patric Salter DO [Partnered Physician] - (in 1 week ) Joel Marrufo MD [Partnered Physician] - (in 1-2 weeks for anemia submitted a web request for Dr. Pavon office to call the patient with a hospital follow up) - Diet and Activity Activity: increase activity as tolerated Diet: low fat, low cholesterol, low salt diet - Attending Attestation I saw evaluated and examined this patient and reviewed objective data including labs and my medical decision-making was reviewed with the Resident Physician, Faraz Phan. I agree with the documented findings, disposition and discharge plan as described except to any changes set forth below. We independently had [id number] contact with the patient. Patient with a history of atrial fibrillation, hyperlipidemia, hypertension, coronary artery disease who was hospitalized here with acute systolic congestive heart failure. She was treated with IV Lasix and underwent 2-D echocardiogram which showed an ejection fraction of 30-35%. As such cardiology was consulted and they recommended left heart catheterization. This was done yesterday and patient was found to have moderate disease that could not explain her cardiomyopathy. She was recommended optimization of medical therapy. At this time, patient is doing well with oral Lasix. She is clinically stable to be discharged home and will follow up with cardiology after discharge for further management of her cardiomyopathy. Patient is on Coumadin for anticoagulation for her atrial fibrillation. Coumadin was held in anticipation for left heart catheterization but now has been resumed. Time spent on discharge: 10 min <Faraz Phan - Last Filed: 12/28/18 22:49> Orders not resulted at time of discharge: Pending orders 12/23/18 09:09 Occult Blood,Stool [BF] Routine Date of Encounter: 12/28/18 Hospital course: Ms. Correa is a 83 year old female with a PMH of atrial fibrillation on Coumadin, CAD s/p drug-eluting stent to the LAD and RCA in 2011, and HTN who presented to [facility] ED on 12/23/18 with chief complaint of shortness of breath and lower extremity swelling of 3 weeks duration. She reported that her shortness of breath occurred with minimal exertion. This made it difficult for her to sleep at night. On arrival, vital signs were significant for an elevated respiratory rate 24/m and a blood pressure of 167/83. BNP was found to be elevated at 1100. CTA of the chest demonstrated the presence of bilateral pleural effusions and findings suggestive of cardiac cirrhosis and call bladder wall edema, mesenteric edema, and abdominal ascites. She was admitted for a CHF exacerbation. She was started on 40 mg of Lasix IV daily. TTE demonstrated newly reduced ejection fraction of 30-35% compared to 50% from previous TTE in 2014. Cardiology recommended increasing Lasix to 40 mg IV twice a day, and recommended left heart catheterization to assess for evidence of ischemia. LHC was performed on 12/27/18, which demonstrated the presence of moderate disease but did not explain her new onset cardiomyopathy. Cardiology recommended optimization of medical therapy with Coreg, lisinopril, Imdur, and Lasix. Patient will be discharged on these medications, and will follow up with cardiology in the outpatient setting. - Time Spent with Patient Total time spent providing and/or coordinating discharge services: Date of admission: 12/25/18 08:47 Primary care physician: Joanna Alvarado MD Consults: 12/24/18 11:01 Consult to Cardiology [CONS] Routine Comment: Consulting Provider: Cardiology Daria Reason for Consult: CHF exacerbation. Updated echo shows EF 30-35% with global LV systolic dysfunction. Call Completed: No 12/28/18 08:26 Consult to Occupational Therapy [CONS] Routine Comment: Evaluate, develop and implement POC Reason for Consult: Gen weakness Does patient have active BEDREST order?: No Is patient medically & hemodynamically stable?: Yes Consult to Physical Therapy [CONS] Routine Comment: Evaluate, develop and implement POC Reason for Consult: Gen weakness Does patient have active BEDREST order?: No Is patient medically & hemodynamically stable?: Yes Discharging clinician: Faraz Phan Anticipated date of discharge: 12/28/18 - Constitutional Vitals: Temp Pulse Resp BP Pulse Ox 99.2 F 74 16 154/86 91 12/28/18 07:15 12/28/18 07:15 12/28/18 07:15 12/28/18 07:15 12/28/18 07:15 Exam: General: A&O X3, conversant, no acute distress Head: atraumatic, normocephalic Eye: PERRL, EOMI Neck: Supple, trachea midline; No lymphadenopathy Respiratory: CTAB. No accessory muscle use, wheezes, rales, or rhonchi Cardiovascular: RRR, +S1, +S2; no murmurs, rubs, gallops Abdomen: Soft, nontender Extremities: warm, radial pulses palpable and symmetrical Psychiatric: Normal affect, normal mood Skin: Dry, intact
[2018-12-28] MEDS ORDERED: *HR* Warfarin 5 MG TABLET PO ONE (18:00)
== END 2018-12-28 18:08 | disposition home or self-care (01) | DRG 287 ==
LOC: EMEROOARM 21:25 → 2NENU 21:25 → SUATTDRO 12-23 02:30 → 2NENU 12-23 02:58 → SUATTDRO 12-25 08:47
PROVIDERS: ADMIT Internal Medicine; ATTEND Internal Medicine

== ENCOUNTER 2019-01-03 12:40 | Observation (INO) ==
[2019-01-03 13:33] LABS: Basophils # 0.1 K/mcL (0.0-0.2); Basophils % 1.7 %; Eosinophils # 0.2 K/mcL (0.0-0.6); Eosinophils % 3.2 %; Hemoglobin 13.1 g/dL (11.5-15.4); Immature Granulocytes % 0.4 % (0-4); Lymphocytes # 1.3 K/mcL (0.6-4.6); Lymphocytes % 19.1 %; Mean Corpuscular Hemoglobin 28.9 pg (28.0-33.3); Mean Corpuscular Volume 90.3 fL (83.0-100.0); Mean Platelet Volume 10.2 fL (9.4-12.4); Monocytes # 0.9 K/mcL (0.0-1.3); Monocytes % 13.2 %; Neutrophils # 4.3 K/mcL (1.6-8.9); Platelet Count 364 K/mcL (140-400); Red Blood Count 4.54 M/mcL (3.82-4.97); Red Cell Distribution Width 15.3 % (11.5-14.5); Segmented Neutrophils % 62.4 %; White Blood Count 6.9 K/mcL (4.3-11.1)
[2019-01-03 13:41] LABS: INR 1.7; Prothrombin Time 19.4 Seconds (9.4-12.1)
--- NOTE | 2019-01-03 13:50 | Emergency Department Note ---
Disposition Clinical Impression: Syncope Qualifiers: Syncope type: unspecified Qualified Code(s): R55 - Syncope and collapse Disposition: Admitted As Inpatient Condition: Fair Referrals: Joanna Alvarado MD [Primary Care Provider] - Forms: ED Satisfaction Letter Time of Disposition: 15:40 Syncope HPI - General Chief Complaint: ED Syncope Stated Complaint: syncope Source: patient, EMS Mode of arrival: EMS Limitations: no limitations Nursing Notes Reviewed: Yes Vital Signs Reviewed: Yes - History of Present Illness HPI Narrative: Alert and oriented nontoxic-appearing 83-year-old female presents for evaluation of a presumed syncopal episode just prior to arrival at her family physician's office. She was awaiting a follow-up visit after recently being discharged from this hospital 12/28/18 after admission for CHF exacerbation. She states that she had felt slightly lightheaded throughout the day. She was found to be slumped over in the chair. EMS was called. EMS reported that the patient did not arouse the entire time they attempted to move her from the chair into the EMS stretcher. After she was physician's stretcher, the patient "woke up". She denies any chest pain, chest pressure, shortness of breath, palpitations, headache, visual disturbances, numbness/tingling/weakness of the extremities, nausea, vomiting, or diaphoresis. Her only complaint at this time is being "slightly lightheaded". Pt Subjective Complaint: other Onset (ago): Just RECEPT[facility] DOCTOR'S OFFICE Current Symptoms: lightheaded History: history of CAD, pacemaker - Related Data Home Medications Medication Instructions Recorded Confirmed Aspirin Enteric Coated [Aspirin EC] 81 mg PO DAILY 12/26/14 12/23/18 Atorvastatin [Lipitor] 40 mg PO DAILY 12/26/14 12/23/18 Carvedilol [Coreg] 12.5 mg PO BID 12/26/14 12/23/18 Alendronate Sodium [Fosamax] 70 mg PO MO 12/23/18 12/23/18 Ferrous Sulfate [Iron] 325 mg PO DAILY 12/23/18 12/23/18 Fluticasone Propionate Nasal 2 spray NS DAILY PRN 12/23/18 12/23/18 [Flonase] Gabapentin [Neurontin] 900 mg PO HS 12/23/18 12/23/18 Isosorbide MONOnitrate (24 HR) 90 mg PO QAM 12/23/18 12/23/18 [Imdur] Omeprazole [PriLOSEC] 40 mg PO DAILY 12/23/18 12/23/18 Warfarin Sodium 2.5 mg PO SUTUWETHFRSA 12/23/18 12/23/18 Warfarin Sodium 5 mg PO MO 12/23/18 12/23/18 Previous Rx's Medication Instructions Recorded Furosemide [Lasix] 40 mg PO BIDDIURETIC #60 tablet 12/28/18 Lisinopril [Zestril] 5 mg PO DAILY #30 tablet 12/28/18 Allergies Allergy/AdvReac Type Severity Reaction Status Date / Time ranolazine [From Ranexa] AdvReac Hallucinati Verified 12/23/18 20:20 ng All systems ED: reviewed and negative except as stated. Review of Systems: As Per HPI Constitutional: Denies: fever, chills, weakness, weight change Eyes: Denies: eye pain, eye discharge, vision change ENT ED: Denies: ear pain, throat pain, dental pain, hearing loss, epistaxis, congestion, dysphagia Cardiovascular: Reports: as per HPI, syncope. Denies: chest pain, palpitations, dyspnea on exertion, edema Respiratory: Denies: cough, dyspnea, wheezes, hemoptysis, stridor Gastrointestinal: Denies: abdominal pain, nausea, vomiting, diarrhea, constipation, hematemesis, melena, hematochezia Genitourinary: Denies: dysuria, frequency, hematuria, discharge Musculoskeletal: Denies: back pain, neck pain, arthralgia, myalgia Integumentary: Denies: rash, abrasion, lesions Neurological: Reports: as per HPI, other ("Lightheaded"). Denies: headache, weakness, numbness, paresthesias, confusion, abnormal gait, vertigo Psychiatric: Denies: anxiety, depression, suicidal thoughts, homicidal thoughts, auditory hallucinations, visual hallucinations Endocrine: Denies: fatigue Hematological/Lymphatic: Denies: easy bleeding, easy bruising Allergic/Immunologic: Denies: facial swelling, urticaria Past Medical History - Past Medical History Attestation: Yes The following information was validated with the patient. Source: patient, nursing notes reviewed Medical history: Reports: atrial fibrillation, coronary artery disease, hyperlipidemia, hypertension Surgical history: Reports: pacemaker/AICD Psychiatric history: Reports: no psych history - Social History Smoking Status: Never smoker Smokeless Tobacco Status: No Alcohol use: Reports: none Drug use: Reports: none Physical Exam - General Limitations: no limitations General appearance: alert, in no apparent distress - Head Head exam: normocephalic - Expanded Head Exam Head exam physicial: Present: other 1 - Small area of ecchymosis - Eye Eye exam: Present: normal appearance, PERRL, EOMI. Absent: conjunctival injection - Neck Neck exam: Present: normal inspection, full ROM - Chest Chest inspection: Present: normal inspection, symmetric chest wall rise - Respiratory Respiratory exam: Present: normal lung sounds bilaterally. Absent: respiratory distress, wheezes, stridor, accessory muscle use, prolonged expiratory phase - Cardiovascular Cardiovascular exam: Present: regular rate, normal rhythm, normal heart sounds - Abdominal Exam Abdominal exam: Present: soft, Non-Tender, normal bowel sounds - Extremities Exam Extremities exam: Present: normal inspection, full ROM - Neurological Exam Neurological exam: Present: alert, oriented X3 - Expanded Neurological Exam Patient oriented to: Present: person, place, time Speech: Present: fluid speech - Psychiatric Psychiatric exam: Present: normal affect, normal mood - Skin Skin exam: Present: warm, dry, intact, normal color Course Course Narrative: Case discussed with Dr. Trammell, ED attending. Dr. Nguyen has had a fa ce-to-face evaluation with patient, reviewed her laboratory and radiology workup and agrees with admission to the hospital service. 1550: I spoke with the admitting hospitalist, Dr. Douglas. he does recommend an IV fluid bolus. He will accept the patient for permission to the hospitalist care. Vital Signs Temperature 98.6 F 01/03/19 12:43 Pulse Rate 90 01/03/19 12:43 Respiratory Rate 18 01/03/19 12:43 Blood Pressure 85/63 01/03/19 12:43 O2 Sat by Pulse Oximetry 99 01/03/19 12:43 Temperature 98.6 F 01/03/19 12:43 Pulse Rate 72 01/03/19 12:47 Respiratory Rate 18 01/03/19 12:47 Blood Pressure 99/60 01/03/19 12:47 O2 Sat by Pulse Oximetry 97 01/03/19 12:47 Oxygen Delivery Oxygen Delivery Room Air Syncope - Medical Records Medical records reviewed: Yes I reviewed the patient's medical records. - Lab Data Lab results reviewed: Yes I reviewed the patient's lab results. Lab results narrative: Lab Results 01/03/19 01/03/19 01/03/19 Range/Units 13:05 13:05 13:05 WBC 6.9 (4.3-11.1) K/mcL RBC 4.54 (3.82-4.97) M/mcL Hgb 13.1 D (11.5-15.4) g/dL Hct 41.0 (35.3-44.9) % MCV 90.3 (83.0-100.0) fL MCH 28.9 (28.0-33.3) pg MCHC 32.0 (31.6-35.5) g/dL RDW 15.3 H (11.5-14.5) % Plt Count 364 (140-400) K/mcL MPV 10.2 (9.4-12.4) fL Immature Gran % 0.4 (0-4) % Seg Neutrophils % 62.4 % Lymphocytes % 19.1 % Monocytes % 13.2 % Eosinophils % 3.2 % Basophils % 1.7 % Neutrophils # 4.3 (1.6-8.9) K/mcL Lymphocytes # 1.3 (0.6-4.6) K/mcL Monocytes # 0.9 (0.0-1.3) K/mcL Eosinophils # 0.2 (0.0-0.6) K/mcL Basophils # 0.1 (0.0-0.2) K/mcL PT 19.4 H (9.4-12.1) Seconds INR 1.7 APTT 30.0 (26.0-36.0) Seconds Sodium 132 L (136-145) mEq/L Potassium 3.7 (3.5-5.1) mEq/L Chloride 96 L (98-107) mEq/L Carbon Dioxide 33 H (23-29) mEq/L BUN 17 (8-23) mg/dL Creatinine 0.91 (0.60-1.20) mg/dL Est GFR ( Amer) > 60 (> 60) Est GFR (Non-Af Amer) 59 L (> 60) BUN/Creatinine Ratio 19 (6-26) Glucose 104 (70-105) mg/dL Calculated Osmolality 276 L (280-300) Calcium 8.9 (8.6-10.3) mg/dL Troponin I < 0.03 (< 0.04) ng/mL B-Natriuretic Peptide (Less than 100) pg/mL 01/03/19 Range/Units 13:05 WBC (4.3-11.1) K/mcL RBC (3.82-4.97) M/mcL Hgb (11.5-15.4) g/dL Hct (35.3-44.9) % MCV (83.0-100.0) fL MCH (28.0-33.3) pg MCHC (31.6-35.5) g/dL RDW (11.5-14.5) % Plt Count (140-400) K/mcL MPV (9.4-12.4) fL Immature Gran % (0-4) % Seg Neutrophils % % Lymphocytes % % Monocytes % % Eosinophils % % Basophils % % Neutrophils # (1.6-8.9) K/mcL Lymphocytes # (0.6-4.6) K/mcL Monocytes # (0.0-1.3) K/mcL Eosinophils # (0.0-0.6) K/mcL Basophils # (0.0-0.2) K/mcL PT (9.4-12.1) Seconds INR APTT (26.0-36.0) Seconds Sodium (136-145) mEq/L Potassium (3.5-5.1) mEq/L Chloride (98-107) mEq/L Carbon Dioxide (23-29) mEq/L BUN (8-23) mg/dL Creatinine (0.60-1.20) mg/dL Est GFR ( Amer) (> 60) Est GFR (Non-Af Amer) (> 60) BUN/Creatinine Ratio (6-26) Glucose (70-105) mg/dL Calculated Osmolality (280-300) Calcium (8.6-10.3) mg/dL Troponin I (< 0.04) ng/mL B-Natriuretic Peptide 232 H (Less than 100) pg/mL Result diagrams: 01/03/19 13:05 01/03/19 13:05 Lab Results 01/03/19 01/03/19 01/03/19 Range/Units 13:05 13:05 13:05 WBC 6.9 (4.3-11.1) K/mcL RBC 4.54 (3.82-4.97) M/mcL Hgb 13.1 D (11.5-15.4) g/dL Hct 41.0 (35.3-44.9) % MCV 90.3 (83.0-100.0) fL MCH 28.9 (28.0-33.3) pg MCHC 32.0 (31.6-35.5) g/dL RDW 15.3 H (11.5-14.5) % Plt Count 364 (140-400) K/mcL MPV 10.2 (9.4-12.4) fL Immature Gran % 0.4 (0-4) % Seg Neutrophils % 62.4 % Lymphocytes % 19.1 % Monocytes % 13.2 % Eosinophils % 3.2 % Basophils % 1.7 % Neutrophils # 4.3 (1.6-8.9) K/mcL Lymphocytes # 1.3 (0.6-4.6) K/mcL Monocytes # 0.9 (0.0-1.3) K/mcL Eosinophils # 0.2 (0.0-0.6) K/mcL Basophils # 0.1 (0.0-0.2) K/mcL PT 19.4 H (9.4-12.1) Seconds INR 1.7 APTT 30.0 (26.0-36.0) Seconds Sodium 132 L (136-145) mEq/L Potassium 3.7 (3.5-5.1) mEq/L Chloride 96 L (98-107) mEq/L Carbon Dioxide 33 H (23-29) mEq/L BUN 17 (8-23) mg/dL Creatinine 0.91 (0.60-1.20) mg/dL Est GFR ( Amer) > 60 (> 60) Est GFR (Non-Af Amer) 59 L (> 60) BUN/Creatinine Ratio 19 (6-26) Glucose 104 (70-105) mg/dL Calculated Osmolality 276 L (280-300) Calcium 8.9 (8.6-10.3) mg/dL Troponin I < 0.03 (< 0.04) ng/mL B-Natriuretic Peptide (Less than 100) pg/mL 01/03/19 Range/Units 13:05 WBC (4.3-11.1) K/mcL RBC (3.82-4.97) M/mcL Hgb (11.5-15.4) g/dL Hct (35.3-44.9) % MCV (83.0-100.0) fL MCH (28.0-33.3) pg MCHC (31.6-35.5) g/dL RDW (11.5-14.5) % Plt Count (140-400) K/mcL MPV (9.4-12.4) fL Immature Gran % (0-4) % Seg Neutrophils % % Lymphocytes % % Monocytes % % Eosinophils % % Basophils % % Neutrophils # (1.6-8.9) K/mcL Lymphocytes # (0.6-4.6) K/mcL Monocytes # (0.0-1.3) K/mcL Eosinophils # (0.0-0.6) K/mcL Basophils # (0.0-0.2) K/mcL PT (9.4-12.1) Seconds INR APTT (26.0-36.0) Seconds Sodium (136-145) mEq/L Potassium (3.5-5.1) mEq/L Chloride (98-107) mEq/L Carbon Dioxide (23-29) mEq/L BUN (8-23) mg/dL Creatinine (0.60-1.20) mg/dL Est GFR ( Amer) (> 60) Est GFR (Non-Af Amer) (> 60) BUN/Creatinine Ratio (6-26) Glucose (70-105) mg/dL Calculated Osmolality (280-300) Calcium (8.6-10.3) mg/dL Troponin I (< 0.04) ng/mL B-Natriuretic Peptide 232 H (Less than 100) pg/mL - Radiology Data Radiology results reviewed: Yes I reviewed the patient's radiology results. Chest X-Ray 01/03/19 13:35 IMPRESSION: Cardiomegaly with no acute process demonstrated D/ / Alonso Banda MD / Alonso Banda MD Interpreting Provider: Alonso Banda MD Head CT 01/03/19 14:27 IMPRESSION: Stable exam without evidence for acute intracranial abnormality. D/ / Carlos Echevarria MD / Carlos Echevarria MD Interpreting Provider: Carlos Echevarria MD - EKG Data EKG attestation: Yes I reviewed and interpreted this EKG. EKG results narrative: EKG shows atrial fibrillation with a ventricular paced rhythm. QRS duration 160, QT/QTc interval 488/527. No ST elevation or significant depression. Attestation Statement - Attestation Attestation: This documentation is done with the assistance of Dragon dictation. Despite efforts made to ensure accuracy, there may be inaccuracies in bone density technician or spelling and typographical errors. I have personally performed a face to face evaluation on this patient. I have reviewed and agree with the care plan. History and Exam by me shows: Patient is a primary care's office sitting in a chair and they found her slumped over with a suspect a syncopal episode she had no complaints here workup here is completed and admit her to the hospital at this time. She has no acute focal deficit she says that she has no complaints at this time she is alert person place and time GCS is 14. Chest X-Ray 01/03/19 13:35 IMPRESSION: Cardiomegaly with no acute process demonstrated D/ / Alonso Banda MD / Alonso Banda MD Interpreting Provider: Alonso Banda MD Head CT 01/03/19 14:27
[2019-01-03 13:56] LABS: BUN/Creatinine Ratio 19 (6-26); Blood Urea Nitrogen 17 mg/dL (8-23); Calcium 8.9 mg/dL (8.6-10.3); Carbon Dioxide 33 mEq/L (23-29); Chloride 96 mEq/L (98-107); Glucose 104 mg/dL (70-105); Osmolality,Calculated 276 (280-300); Potassium 3.7 mEq/L (3.5-5.1); Sodium 132 mEq/L (136-145); eGFR For African Americans > 60 (> 60); eGFR For Non-African Americans 59 (> 60)
[2019-01-03 14:24] LABS: Troponin I < 0.03 ng/mL (< 0.04)
[2019-01-03] MEDS ORDERED: 0.9 % Sodium Chloride 1,000 ML IVC ONE (15:54)
[2019-01-03] MEDS ORDERED: Naloxone 0.4 MG/ML INJ IVP PRN (16:10)
[2019-01-03] MEDS ORDERED: *HR* Warfarin 5 MG TABLET PO SCH (18:00)
--- NOTE | 2019-01-03 18:04 | Internal Med History&Physical ---
Date of Encounter: 01/03/19 Time of Encounter: 18:00 Internal Medicine - H&P: HPI Chief complaint: Syncopal episode today History of present illness: Ms. Correa is a 83 year old female with pmh of atrial fibrillation, hyperlipidemia, hypertension, coronary artery disease , pacemaker placement recently discharged from the hospital for systolic CHF where she had a cath done for new cardiomyopathy came in with complaints of passing out at the doctor's office today. Patient had gone to her PCP for her post hospital discharge follow up appointment. She was said to have been found slumped in a chair and unresponsive.She doesn't remember how long she was out for, but says she woke up drenched in sweat and remembers everything prior to passing out. Denies any tongue biting or urinary incontinence. Her daughter at the bedside reports she has had multiple episodes of passing out going back as far as the last 4 weeks. She has unexplained bruises and has been found on her bathroom floor not recalling how she went to the ground. In the ER, she got one bag of normal saline and she is being admitted for further management Past Med Surg Social Fam HX - Past Medical History Medical history: atrial fibrillation, coronary artery disease, hyperlipidemia, hypertension Additional medical history: pacemaker; stents Psychiatric history: no psych history - Past Surgical History Surgical History: pacemaker/AICD Additional surgical history: tubal, cardiac stents x 2 - Social History Smoking Status: Never smoker Smokeless Tobacco Status: No Alcohol use: none Drug use: none Internal Medicine - H&P: Meds Aspirin Enteric Coated [Aspirin EC] 81 mg PO DAILY 12/26/14 [History] Atorvastatin [Lipitor] 40 mg PO DAILY 12/26/14 [History] Carvedilol [Coreg] 12.5 mg PO BID 12/26/14 [History] Alendronate Sodium [Fosamax] 70 mg PO MO 12/23/18 [History] Ferrous Sulfate [Iron] 325 mg PO DAILY 12/23/18 [History] Fluticasone Propionate Nasal [Flonase] 2 spray NS DAILY PRN 12/23/18 [History] Gabapentin [Neurontin] 900 mg PO HS 12/23/18 [History] Isosorbide MONOnitrate (24 HR) [Imdur] 90 mg PO QAM 12/23/18 [History] Omeprazole [PriLOSEC] 40 mg PO DAILY 12/23/18 [History] Warfarin Sodium 2.5 mg PO SUTUWETHFRSA 12/23/18 [History] Warfarin Sodium 5 mg PO MO 12/23/18 [History] Furosemide [Lasix] 40 mg PO BIDDIURETIC #60 tablet 12/28/18 [Rx] Lisinopril [Zestril] 5 mg PO DAILY #30 tablet 12/28/18 [Rx] Allergy/AdvReac Type Severity Reaction Status Date / Time ranolazine [From Ranexa] AdvReac Hallucinati Verified 12/23/18 20:20 ng All Systems PM: A 10-system review of systems was performed and is negative for pertinent findings except as documented above in the HPI. - Constitutional Constitutional: no chills, no fever(s), no night sweats - EENT Eyes: no change in vision, no discharge, no pain, no photophobia Ears: no ear discharge, no ear pain, no tinnitus Nose, mouth and throat: no dysphagia, no nasal discharge, no neck pain, no sore throat - Cardiovascular Cardiovascular ROS IM: no chest pain, no diaphoresis, no dyspnea, no lightheadedness, no palpitations, no syncope - Respiratory Respiratory: no cough, no dyspnea, no wheezing, no excessive phlegm production - Gastrointestinal Gastrointestinal: no abdominal pain, no diarrhea, no hematemesis, no hematochezia, no melena, no nausea, no vomiting - Genitourinary Genitourinary: no change in urinary stream, no dysuria, no flank pain, no hematuria - Musculoskeletal Musculoskeletal ROS IM: no numbness, no tingling - Integumentary Integumentary IM: no rash, no unusual bruising - Neurological Neurological ROS: frequent falls, no confusion, no convulsions, no focal weakness, no numbness, no tingling, no tremor(s) - Hematologic/Lymphatic Hematologic/Lymphatic: no easy bruising - Constitutional Vitals: Temp Pulse Resp BP Pulse Ox 98.6 F 72 18 103/76 94 01/03/19 12:43 01/03/19 16:00 01/03/19 16:00 01/03/19 16:00 01/03/19 16:00 Exam: NAD - Head Head exam: Present: atraumatic, normocephalic - Eye Eye exam: Present: PERRL, conjuntiva pink, sclera anicteric Pupils: Present: PERRL - Neck Neck exam general surgery: Present: supple, trachea midline. Absent: lymphadenopathy - Respiratory Respiratory exam: Present: CTAB. Absent: accessory muscle use, rales, rhonchi, wheezes - Cardiovascular Cardiovascular exam: Present: RRR, +S1, +S2. Absent: diastolic murmur, gallop, rubs, systolic murmur - GI/Abdominal GI/Abdominal exam: Present: normal bowel sounds, soft, no peritoneal signs. Absent: distended, tenderness - Extremities Exam Extremities exam: Present: warm, radial pulses palpable and symmetrical. Absent: calf tenderness, cyanotic, pedal edema - Neurological Exam Neurological exam: Present: CN II-XII intact, oriented X3, no focal deficits. Absent: pronater drift, facial droop, speech deficit - Skin Skin exam: Present: dry, intact Internal Med - H&P Results - Labs CBC & Chem 7: 01/03/19 13:05 01/03/19 13:05 Labs: Short CBC 01/03/19 Range/Units 13:05 WBC 6.9 (4.3-11.1) K/mcL Hgb 13.1 D (11.5-15.4) g/dL Hct 41.0 (35.3-44.9) % Plt Count 364 (140-400) K/mcL Neutrophils # 4.3 (1.6-8.9) K/mcL BMP 01/03/19 13:05 Sodium 132 L Potassium 3.7 Chloride 96 L Carbon Dioxide 33 H BUN 17 Creatinine 0.91 Glucose 104 Calcium 8.9 Cardiac Enzymes 01/03/19 Range/Units 13:05 Troponin I < 0.03 (< 0.04) ng/mL - Impressions ITS Impressions Chest X-Ray 01/03/19 13:35 IMPRESSION: Cardiomegaly with no acute process demonstrated D/ / Alonso Banda MD / Alonso Banda MD Interpreting Provider: Alonso Banda MD Head CT 01/03/19 14:27 IMPRESSION: Stable exam without evidence for acute intracranial abnormality. D/ / Carlos Echevarria MD / Carlos Echevarria MD Interpreting Provider: Carlos Echevarria MD - Assessment and Plan (1) Syncope Current Visit: Yes Status: Acute Assessment and plan: Pt presents with syncopal episode today. reports multiple unexplained syncopal episodes in the last 4 weeks Has cardiomyopathy and pacemaker. Will obtain orthostatic vitals, gentle hydration Cardiology consulted for arrhythmia/ pacemaker interrogation and appreciate recs Qualifiers: Syncope type: unspecified Qualified Code(s): R55 - Syncope and collapse (2) Acute systolic CHF (congestive heart failure), NYHA class 4 Current Visit: Yes Status: Acute Assessment and plan: Will obtain orthostatics and hold lasix Pt is borderline hypotensive so gentle hydration (3) Atrial fibrillation Current Visit: Yes Status: Chronic Assessment and plan: On coreg and warfarn. Rate controlled Hold beta blockers due to hypotension Qualifiers: Atrial fibrillation type: chronic Qualified Code(s): I48.2 - Chronic atrial fibrillation (4) CAD (coronary artery disease) Current Visit: Yes Status: Chronic Assessment and plan: Resume home meds Qualifiers: Coronary Disease-Associated Artery/Lesion type: [place] artery [place] vs. transplanted heart: [place] heart Associated angina: without angina Qualified Code(s): I25.10 - Atherosclerotic heart disease of [place] coronary artery without angina pectoris (5) HTN (hypertension) Current Visit: Yes Status: Chronic Assessment and plan: Hold antihypertensives Qualifiers: Hypertension type: essential hypertension Qualified Code(s): I10 - Essential (primary) hypertension (6) DVT prophylaxis Current Visit: Yes Status: Acute Assessment and plan: Continue warfarin - Time Spent With Patient Total time spent is greater than 50% in coordination of care (as documented) at patient's floor/unit and/or counseling patient:
[2019-01-04] MEDS ORDERED: NIFEdipine 10 MG CAPSULE PO ONE (04:01)
[2019-01-04 05:41] LABS: Basophils # 0.1 K/mcL (0.0-0.2); Basophils % 0.9 %; Eosinophils # 0.2 K/mcL (0.0-0.6); Eosinophils % 2.1 %; Hematocrit 37.6 % (35.3-44.9); Immature Granulocytes % 0.5 % (0-4); Lymphocytes # 1.5 K/mcL (0.6-4.6); Lymphocytes % 18.1 %; Mean Corpuscular HGB Conc 31.9 g/dL (31.6-35.5); Mean Corpuscular Hemoglobin 27.7 pg (28.0-33.3); Mean Corpuscular Volume 86.8 fL (83.0-100.0); Mean Platelet Volume 9.9 fL (9.4-12.4); Monocytes # 0.8 K/mcL (0.0-1.3); Monocytes % 9.8 %; Neutrophils # 5.8 K/mcL (1.6-8.9); Platelet Count 310 K/mcL (140-400); Red Blood Count 4.33 M/mcL (3.82-4.97); Red Cell Distribution Width 15.4 % (11.5-14.5); Segmented Neutrophils % 68.6 %; White Blood Count 8.4 K/mcL (4.3-11.1)
[2019-01-04 06:01] LABS: BUN/Creatinine Ratio 19 (6-26); Blood Urea Nitrogen 13 mg/dL (8-23); Calcium 8.5 mg/dL (8.6-10.3); Carbon Dioxide 30 mEq/L (23-29); Chloride 98 mEq/L (98-107); Glucose 94 mg/dL (70-105); Magnesium 1.8 mg/dL (1.6-2.6); Osmolality,Calculated 278 (280-300); Potassium 3.9 mEq/L (3.5-5.1); Sodium 134 mEq/L (136-145); eGFR For African Americans > 60 (> 60); eGFR For Non-African Americans > 60 (> 60)
--- NOTE | 2019-01-04 07:59 | Internal Med Progress Note ---
Hospitalist Progress Note - Encounter Date of Encounter: 01/04/19 Time of Encounter: 08:00 - Subjective Interval History: No acute events overnight - Exam Vitals: Temp Pulse Resp BP Pulse Ox 98.0 F 73 16 146/76 96 01/04/19 06:50 01/04/19 06:50 01/04/19 06:50 01/04/19 06:50 01/04/19 06:50 Exam: Gen.NAD CVS. S1 S2 WNL Resp. CTAB GI. Soft, NT, ND, +BS Ext. 2+ pulses SPD TECH. GCS 15/15 - Assessment and Plan (1) Syncope Current Visit: Yes Status: Acute Assessment and Plan: Pt presents with syncopal episode today. reports multiple unexplained syncopal episodes in the last 4 weeks Has cardiomyopathy and pacemaker. Seen by cardiology and deemed most likely 2/2 to hypotension Gradually restarting cardiomyopathy meds and antihypertensives. Monitor Pacemaker interrogated and WNL per cardio (2) Acute systolic CHF (congestive heart failure), NYHA class 4 Current Visit: Yes Status: Acute Assessment and Plan: Will obtain orthostatics and hold lasix Pt is borderline hypotensive so gentle hydration Resume heart failure meds (3) Atrial fibrillation Current Visit: Yes Status: Chronic Assessment and Plan: On coreg and warfarn. Rate controlled Resume beta blockers (4) CAD (coronary artery disease) Current Visit: Yes Status: Chronic Assessment and Plan: Resume home meds (5) HTN (hypertension) Current Visit: Yes Status: Chronic Assessment and Plan: Hold antihypertensives (6) DVT prophylaxis Current Visit: Yes Status: Acute Assessment and Plan: Continue warfarin - Time Spent with Patient Total time spent is greater than 50% in coordination of care (as documented) at patient's floor/unit and/or counseling patient: Internal Medicine: Result - Labs CBC & Chem 7: 01/04/19 05:06 01/04/19 05:06 Labs: Short CBC 01/03/19 01/04/19 Range/Units 13:05 05:06 WBC 6.9 8.4 (4.3-11.1) K/mcL Hgb 13.1 D 12.0 (11.5-15.4) g/dL Hct 41.0 37.6 (35.3-44.9) % Plt Count 364 310 (140-400) K/mcL Neutrophils # 4.3 5.8 (1.6-8.9) K/mcL BMP 01/03/19 01/04/19 13:05 05:06 Sodium 132 L 134 L Potassium 3.7 3.9 Chloride 96 L 98 Carbon Dioxide 33 H 30 H BUN 17 13 Creatinine 0.91 0.68 Glucose 104 94 Calcium 8.9 8.5 L Cardiac Enzymes 01/03/19 Range/Units 13:05 Troponin I < 0.03 (< 0.04) ng/mL - ABG Interpretation ABG results: PT/INR, D-dimer PT 19.4 Seconds (9.4-12.1) H 01/03/19 13:05 - Impressions Impressions Chest X-Ray 01/03/19 13:35 IMPRESSION: Cardiomegaly with no acute process demonstrated D/ / Alonso Banda MD / Alonso Banda MD Interpreting Provider: Alonso Banda MD Head CT 01/03/19 14:27 IMPRESSION: Stable exam without evidence for acute intracranial abnormality. D/ / Carlos Echevarria MD / Carlos Echevarria MD Interpreting Provider: Carlos Echevarria MD Consult Discharge Plan - Plan Referrals: Joanna Alvarado MD [Primary Care Provider] - (1) Syncope Qualifiers: Syncope type: unspecified Qualified Code(s): R55 - Syncope and collapse (3) Atrial fibrillation Qualifiers: Atrial fibrillation type: permanent Qualified Code(s): I48.21 - Permanent atrial fibrillation (4) CAD (coronary artery disease) Qualifiers: Coronary Disease-Associated Artery/Lesion type: [place] artery [place] vs. transplanted heart: [place] heart Associated angina: without angina Qualified Code(s): I25.10 - Atherosclerotic heart disease of [place] coronary artery without angina pectoris (5) HTN (hypertension) Qualifiers: Hypertension type: essential hypertension Qualified Code(s): I10 - Essential (primary) hypertension
[2019-01-04] MEDS: Aspirin Enteric Coated 81 MG Tablet PO SCH (09:25)
--- NOTE | 2019-01-04 11:11 | Cardiology Consult Note ---
<Mariano Arrieta - Last Filed: 01/04/19 11:23> Date of Encounter: 01/04/19 Time of Encounter: 11:07 Assessment and Plan (1) Syncope Current Visit: Yes Status: Acute Recently discharged for new CMP/systolic CHF. She presented to ED after passing out at PCP office while sitting down. Family at the bedside reports she has had multiple episodes of passing out over the last 4 weeks and has passed out twice in the past week. [facility] 12/27/18 CAD does not account for severe systolic CHF. EF 25-30%. TTE 12/23/18 LVEF 30-35%. Global LV systolic dysfunction. Mild AR. Normal RV size, mildly reduced function. Mild MR. Moderate TR. Mild-moderate phtn. [facility] PPM interrogated--no events noted. Battery longevity 10 years. Paced 99%. On presentation, BP was 85/63. Suspect syncope is r/t hypotension. Orthostatic vitals negative. BP has improved since antihypertensives were held. Last admission Lisinopril 5mg daily was added and Imdur was increased to 90mg daily. On Coreg 12.5mg BID. Recommend decreasing doses and adding meds back slowly to see if BP tolerates. Will discuss and review with Dr. Gaxiola. Qualifiers: Syncope type: unspecified Qualified Code(s): R55 - Syncope and collapse (2) Cardiomyopathy Current Visit: Yes Status: Acute NICMP--TTE 12/23/18 EF 30-35%. [facility] 12/27/18 medical therapy recommended. On coreg, lisinopril, imdur, and lasix. As above, presented with syncope likely secondary to hypotension from medications. Previously listed meds on hold since admission. Will decrease doses and add back slowly as BP tolerates. Currently euvolemic on exam. Will coordinate outpatient follow-up with Dr. Crow House to evaluate need for upgrade of PPM. Hx of single lead PPM s/p AV dorys ablation. Qualifiers: Cardiomyopathy type: unspecified Qualified Code(s): I42.9 - Cardiomyopathy, unspecified (3) Atrial fibrillation Current Visit: Yes Status: Chronic H/o permanent afib s/p AV node ablation and single chamber PPM in 2011. May benefit from upgrade of PPM to dual chamber in future given newly reduced EF. On coumadin for care home AC. Qualifiers: Atrial fibrillation type: permanent Qualified Code(s): I48.21 - Permanent atrial fibrillation (4) CAD (coronary artery disease) Current Visit: Yes Status: Chronic H/o CAD s/p PCI to LAD and RCA in 2011. [facility] 12/27/18 CAD noted, no intervention. Continue asa, statin, and bb. Qualifiers: Coronary Disease-Associated Artery/Lesion type: [place] artery [place] vs. transplanted heart: [place] heart Associated angina: without angina Qualified Code(s): I25.10 - Atherosclerotic heart disease of [place] coronary artery without angina pectoris Discussion w patient/family: The assessment and plan as outlined above was discussed with the patient and/or family members who expressed understanding and agreement. All questions were answered. Thank you for involving us in the care of your patient. Please call with any questions. I will discuss all the above with Dr. Gaxiola and make changes as necessary. History of Present Illness Consult date: 01/04/19 Consult reason: Syncope Chief complaint: syncope History of present illness: Ms. Correa is a 83 year old female with PMH of A-Fib, hyperlipidemia, HTN, CAD , PPM, recently discharged for new CMP/systolic CHF. She presented to ED after passing out at PCP office while sitting down. She woke up drenched in sweat and is unable to recall prior to passing out. Family at the bedside reports she has had multiple episodes of passing out over the last 4 weeks and has passed out twice in the past week. Cardiology consulted for further recs. Prior CV testing: [facility] 12/27/18: Coronary artery disease present does not account for severe systolic CHF. The left ventricle is normal and has abnormal contractility EF 25- 30%. TTE 12/23/18: LVEF 30-35%. Normal LV chamber size, wall thickness. Global left ventricular systolic dysfunction. Atypical septal motion consistent with bundle branch block. Indeterminate diastolic function. Mild AR. Normal RV size, mildly reduced function. Mild MR. Moderate TR. Mild-moderate phtn. Device lead visualized in right sided chambers. Past Med Surg Social Fam HX - Past Medical History Medical history: atrial fibrillation, cardiomyopathy, CHF, coronary artery disease, hyperlipidemia, hypertension Additional medical history: RLS Psychiatric history: no psych history - Past Surgical History Surgical History: pacemaker/AICD Additional surgical history: tubal, cardiac stents x 2 - Social History Smoking Status: Never smoker Smokeless Tobacco Status: No Alcohol use: none Drug use: none Medications and Allergies Aspirin Enteric Coated [Aspirin EC] 81 mg PO DAILY 12/26/14 [History] Atorvastatin [Lipitor] 40 mg PO DAILY 12/26/14 [History] Carvedilol [Coreg] 12.5 mg PO BID 12/26/14 [History] Alendronate Sodium [Fosamax] 70 mg PO MO 12/23/18 [History] Ferrous Sulfate [Iron] 325 mg PO DAILY 12/23/18 [History] Fluticasone Propionate Nasal [Flonase] 2 spray NS DAILY PRN 12/23/18 [History] Gabapentin [Neurontin] 900 mg PO HS 12/23/18 [History] Isosorbide MONOnitrate (24 HR) [Imdur] 90 mg PO QAM 12/23/18 [History] Omeprazole [PriLOSEC] 40 mg PO DAILY 12/23/18 [History] Warfarin Sodium 2.5 mg PO SUTUWETHFRSA 12/23/18 [History] Warfarin Sodium 5 mg PO MO 12/23/18 [History] Furosemide [Lasix] 40 mg PO BIDDIURETIC #60 tablet 12/28/18 [Rx] Lisinopril [Zestril] 5 mg PO DAILY #30 tablet 12/28/18 [Rx] Allergy/AdvReac Type Severity Reaction Status Date / Time ranolazine [From Ranexa] AdvReac Hallucinati Verified 01/04/19 12:30 ng All Systems Review: The remainder of the systems were reviewed and are negative - Cardiovascular Cardiovascular: as per HPI, syncope Physical Examination Vital Signs, Last 4 Hours Temp Pulse Resp BP Pulse Ox 01/04/19 10:41 97.9 F 79 16 158/85 92 01/04/19 09:30 96 Vital Signs Temp Pulse Resp BP BP BP BP 01/04/19 10:41 97.9 F 79 16 158/85 01/04/19 09:30 01/04/19 06:50 98.0 F 73 16 146/76 01/04/19 05:16 133/67 01/04/19 04:17 147/73 01/04/19 03:41 98.6 F 71 17 186/70 01/03/19 23:47 143/85 149/85 143/85 01/03/19 23:44 98.9 F 65 17 143/85 01/03/19 18:36 97.8 F 72 17 123/67 01/03/19 16:00 72 18 103/76 01/03/19 15:00 71 16 95/51 01/03/19 14:00 70 16 105/62 01/03/19 13:30 72 18 99/68 01/03/19 12:47 72 18 99/60 01/03/19 12:43 98.6 F 90 18 85/63 Pulse Ox 01/04/19 10:41 92 01/04/19 09:30 96 01/04/19 06:50 96 01/04/19 05:16 01/04/19 04:17 01/04/19 03:41 93 01/03/19 23:47 01/03/19 23:44 94 01/03/19 18:36 96 01/03/19 16:00 94 01/03/19 15:00 97 01/03/19 14:00 94 01/03/19 13:30 97 01/03/19 12:47 97 01/03/19 12:43 99 Intake and Output 01/03/19 01/04/19 01/04/19 23:59 07:59 15:59 Intake Total 1000 / 1000 120 / 120 Output Total 400 / 800 400 / 800 Balance 1000 / 1000 -400 / -680 -280 / -680 Intake: IV Fluids 1000 / 1000 0.9 % Sodium Chloride 1,000 ML 1000 / 1000 @ 999 mls/hr IVC .Q1H1M ONE Rx# :[id number] Oral 120 / 120 Output: Urine 400 / 800 400 / 800 Other: Meal Breakfast Percent of Meal Consumed 100% # Voids 2 1 1 Weight 151.1 kg General: Conversant, No Apparent Distress HEENT: Atraumatic, Normocephaly, Mucus Membranes Moist Neck: No JVD, Normal carotid pulses Cardiac: Reg Rate and Rhythm, Normal S1 and S2, No Murmur Lungs: Normal Breath Sounds, No Wheeze, Rales, Rhonchi Neuro: Alert and responsive, No focal deficits noted Abdomen: Soft, Non-Tender Skin: No rashes noted on visualized skin Musculoskeletal: No Chest Wall Tenderness Extremities: No Clubbing, No Cyanosis, No Edema, Normal Pulses Results 01/04/19 05:06 01/04/19 05:06 Lab Results 01/03/19 01/03/19 01/03/19 13:05 13:05 13:05 WBC 6.9 Hgb 13.1 D Hct 41.0 Plt Count 364 INR 1.7 APTT 30.0 Sodium 132 L Potassium 3.7 Chloride 96 L Carbon Dioxide 33 H BUN 17 Creatinine 0.91 Glucose 104 Calcium 8.9 Magnesium Troponin I < 0.03 B-Natriuretic Peptide 01/03/19 01/04/19 01/04/19 13:05 05:06 05:06 WBC 8.4 Hgb 12.0 Hct 37.6 Plt Count 310 INR APTT Sodium 134 L Potassium 3.9 Chloride 98 Carbon Dioxide 30 H BUN 13 Creatinine 0.68 Glucose 94 Calcium 8.5 L Magnesium 1.8 Troponin I B-Natriuretic Peptide 232 H Short CBC 01/04/19 01/03/19 Range/Units 05:06 13:05 WBC 8.4 6.9 (4.3-11.1) K/mcL Hgb 12.0 13.1 D (11.5-15.4) g/dL Hct 37.6 41.0 (35.3-44.9) % Plt Count 310 364 (140-400) K/mcL Neutrophils # 5.8 4.3 (1.6-8.9) K/mcL BMP 01/04/19 01/03/19 Range/Units 05:06 13:05 Sodium 134 L 132 L (136-145) mEq/L Potassium 3.9 3.7 (3.5-5.1) mEq/L Chloride 98 96 L (98-107) mEq/L Carbon Dioxide 30 H 33 H (23-29) mEq/L BUN 13 17 (8-23) mg/dL Creatinine 0.68 0.91 (0.60-1.20) mg/dL Glucose 94 104 (70-105) mg/dL Calcium 8.5 L 8.9 (8.6-10.3) mg/dL Cardiac Enzymes 01/03/19 Range/Units 13:05 Troponin I < 0.03 (< 0.04) ng/mL Impressions Chest X-Ray 01/03/19 13:35 IMPRESSION: Cardiomegaly with no acute process demonstrated D/ / Alonso Banda MD / Alonso Banda MD Interpreting Provider: Alonso Banda MD Head CT 01/03/19 14:27 IMPRESSION: Stable exam without evidence for acute intracranial abnormality. D/ / Carlos Echevarria MD / Carlos Echevarria MD Interpreting Provider: Carlos Echevarria MD Active Medications Aspirin (Aspirin Ec) 81 mg PO DAILY JIAN Stop: 07/06/19 09:01 Last Admin: 01/04/19 09:25 Dose: 81 mg Documented by: Atorvastatin Calcium (Lipitor) 40 mg PO HS JIAN Stop: 07/06/19 21:01 Ferrous Sulfate (Ferrous Sulfate) 325 mg PO DAILY@1200 [facility] Stop: 07/06/19 12:01 Naloxone HCl (Narcan) 0.4 mg IVP Q2MPRN PRN PRN Reason: SEE COMMENTS Stop: 07/05/19 16:11 Omeprazole (Prilosec) 40 mg PO DAILY JIAN; Protocol Stop: 07/06/19 09:01 Last Admin: 01/04/19 09:25 Dose: 40 mg Documented by: Warfarin Sodium (Coumadin Perpt) 1 each PO DAILY@1800 PRN; Protocol PRN Reason: SEE COMMENTS Stop: 07/06/19 18:01 Warfarin Sodium (Coumadin) 2.5 mg PO 1800 ONE; Protocol Stop: 01/04/19 18:01 - Imaging and Cardiology Echo: report reviewed Cardiac cath: report reviewed - EKG Interpretation EKG results cardiology: personally reviewed (paced), other (12 hr tele AVG HR 73, paced) Consult Discharge Plan - Plan Referrals: Joanna Alvarado MD [Primary Care Provider] - Cardiac Rehab - Cardiac Rehab Cardiac Rehab: Phase I consult completed. Patient was educated on why Cardiac Rehabilitation is beneficial to his/her health. Participating in a cardiac rehabilitation can improve the following: strengthen your heart, improve ejection fraction, weight reduction, decrease cholesterol levels, lower blood pressure, lower blood sugar, improve stamina, and enhance self-image. If he/she has any questions, they were instructed to call [facility] at [phone]. <Akua Gaxiola - Last Filed: 01/04/19 13:55> Date of Encounter: 01/04/19 - Attending Attestation I examined this patient and my medical decision-making was reviewed with the STRIP PRESSER. I agree with the documented findings, disposition and treatment plan as described. Ms. Correa presents with syncopal events since discharge. Presenting BP hypotensive 85/63 mmHg may be associated with recent CHF fluid restriction as well as increase/addition of CHF guideline HF therapy (lisinopril added last visit, imdur increased). Recommend reintroducing CHF guideline medications at low doses to see if patient tolerates. Pacer check demonstrates no concerning findings. Assessment and Plan Discussion w patient/family: The assessment and plan as outlined above was discussed with the patient and/or family members who expressed understanding and agreement. All questions were answered. Thank you for involving us in the care of your patient. Please call with any questions. History of Present Illness History of present illness: Ms. Correa is a 83 year old female All Systems Review: The remainder of the systems were reviewed and are negative Physical Examination Vital Signs, Last 4 Hours Temp Pulse Resp BP Pulse Ox 01/04/19 10:41 97.9 F 79 16 158/85 92 Results 01/04/19 05:06 01/04/19 05:06 Lab Results 01/03/19 01/03/19 01/04/19 13:05 13:05 05:06 WBC 8.4 Hgb 12.0 Hct 37.6 Plt Count 310 Sodium 132 L Potassium 3.7 Chloride 96 L Carbon Dioxide 33 H BUN 17 Creatinine 0.91 Glucose 104 Calcium 8.9 Magnesium Troponin I < 0.03 B-Natriuretic Peptide 232 H 01/04/19 05:06 WBC Hgb Hct Plt Count Sodium 134 L Potassium 3.9 Chloride 98 Carbon Dioxide 30 H BUN 13 Creatinine 0.68 Glucose 94 Calcium 8.5 L Magnesium 1.8 Troponin I B-Natriuretic Peptide Cardiac Rehab - Cardiac Rehab Cardiac Rehab: Phase I consult completed. Patient was educated on why Cardiac Rehabilitation is beneficial to his/her health. Participating in a cardiac rehabilitation can improve the following: strengthen your heart, improve ejection fraction, weight reduction, decrease cholesterol levels, lower blood pressure, lower blood sugar, improve stamina, and enhance self-image. If he/she has any questions, they were instructed to call [facility] at [phone].
--- NOTE | 2019-01-04 11:34 | Electrocardiograph Report ---
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
[2019-01-04] MEDS: Furosemide 20 MG TABLET PO SCH (12:15)
[2019-01-04] MEDS ORDERED: *HR* Warfarin 5 MG TABLET PO SCH (18:00)
[2019-01-04] MEDS ORDERED: Warfarin perPT PO PRN (18:00)
[2019-01-04] MEDS ORDERED: *HR* Warfarin 2.5 MG TABLET PO ONE (18:00)
[2019-01-04] MEDS ORDERED: Gabapentin 300 MG CAPSULE PO SCH (21:00)
[2019-01-05 04:39] LABS: Basophils # 0.1 K/mcL (0.0-0.2); Basophils % 1.5 %; Eosinophils # 0.2 K/mcL (0.0-0.6); Eosinophils % 2.4 %; Hematocrit 39.5 % (35.3-44.9); Hemoglobin 12.8 g/dL (11.5-15.4); Immature Granulocytes % 0.1 % (0-4); Lymphocytes # 1.6 K/mcL (0.6-4.6); Lymphocytes % 23.7 %; Mean Corpuscular HGB Conc 32.4 g/dL (31.6-35.5); Mean Corpuscular Hemoglobin 28.5 pg (28.0-33.3); Mean Platelet Volume 10.4 fL (9.4-12.4); Monocytes # 0.9 K/mcL (0.0-1.3); Monocytes % 12.7 %; Platelet Count 316 K/mcL (140-400); Red Blood Count 4.49 M/mcL (3.82-4.97); Red Cell Distribution Width 15.3 % (11.5-14.5); Segmented Neutrophils % 59.6 %; White Blood Count 6.8 K/mcL (4.3-11.1)
[2019-01-05 04:42] LABS: INR 2.1; Prothrombin Time 23.7 Seconds (9.4-12.1)
[2019-01-05 04:53] LABS: BUN/Creatinine Ratio 22 (6-26); Blood Urea Nitrogen 13 mg/dL (8-23); Calcium 8.7 mg/dL (8.6-10.3); Carbon Dioxide 27 mEq/L (23-29); Chloride 102 mEq/L (98-107); Glucose 100 mg/dL (70-105); Magnesium 1.8 mg/dL (1.6-2.6); Osmolality,Calculated 282 (280-300); Potassium 3.4 mEq/L (3.5-5.1); Sodium 136 mEq/L (136-145); eGFR For African Americans > 60 (> 60); eGFR For Non-African Americans > 60 (> 60)
[2019-01-05] MEDS ORDERED: Potassium Chloride Elixir 20 MEQ/15 ML UDC PO ONE (07:15)
[2019-01-05] MEDS: Aspirin Enteric Coated 81 MG Tablet PO SCH (08:48)
[2019-01-05] MEDS: Furosemide 20 MG TABLET PO SCH (08:49)
[2019-01-05] MEDS ORDERED: Isosorbide MONOnitrate (24 HR) 30 MG TAB.ER.24H PO SCH (09:00)
--- NOTE | 2019-01-05 09:42 | Cardiology Progress Note ---
Date of Encounter: 01/05/19 Time of Encounter: 09:36 Assessment and Plan (1) Syncope Current Visit: Yes Status: Acute Recently discharged for new CMP/systolic CHF. Presented to ED after passing out at PCP office. Multiple episodes of passing out over the last 4 weeks and has passed out twice in the past week. [facility] 12/27/18 CAD does not account for severe systolic CHF. EF 25-30%. TTE 12/23/18 LVEF 30-35%. Global LV systolic dysfunction. Mild AR. Normal RV size, mildly reduced function. Mild MR. Moderate TR. Mild-moderate phtn. [facility] PPM interrogated--no events noted. Battery longevity 10 years. Paced 99%. On presentation, BP was 85/63. Suspect syncope is r/t hypotension. Orthostatic vitals negative. Last admission meds were added/increased-Decreased all doses--Lisinopril 2.5mg daily, Imdur 30mg daily, Coreg 3.125mg daily, Lasix 20mg daily. BP tolerating. Recommend d/c home on these decreased doses. Cardiology signing off. Reconsult PRN. Will coordinate outpt follow-up in 1-2 weeks. Qualifiers: Syncope type: unspecified Qualified Code(s): R55 - Syncope and collapse (2) Cardiomyopathy Current Visit: Yes Status: Acute NICMP--TTE 12/23/18 EF 30-35%. [facility] 12/27/18 medical therapy recommended. On coreg, lisinopril, imdur, and lasix. As above, presented with syncope likely secondary to hypotension from medications. Doses decreased. Currently euvolemic on exam. Will coordinate outpatient follow-up with Dr. Crow House to evaluate need for upgrade of PPM. Hx of single lead PPM s/p AV dorys ablation. Qualifiers: Cardiomyopathy type: unspecified Qualified Code(s): I42.9 - Cardiomyopathy, unspecified (3) Atrial fibrillation Current Visit: Yes Status: Chronic H/o permanent afib s/p AV node ablation and single chamber PPM in 2011. May benefit from upgrade of PPM to dual chamber in future given newly reduced EF. On coumadin for long chain beamer AC. Qualifiers: Atrial fibrillation type: permanent Qualified Code(s): I48.21 - Permanent atrial fibrillation (4) CAD (coronary artery disease) Current Visit: Yes Status: Chronic H/o CAD s/p PCI to LAD and RCA in 2012. [facility] 12/27/18 CAD noted, no intervention. Continue asa, statin, and bb. Qualifiers: Coronary Disease-Associated Artery/Lesion type: [place] artery [place] vs. transplanted heart: [place] heart Associated angina: without angina Qualified Code(s): I25.10 - Atherosclerotic heart disease of [place] coronary artery without angina pectoris Discussion w patient/family: The assessment and plan as outlined above was discussed with the patient and/or family members who expressed understanding and agreement. All questions were answered. Thank you for involving us in the care of your patient. Please call with any questions. I will discuss all the above with Dr. Gaxiola and make changes as necessary. Subjective Principal diagnosis: Syncope Interval history: No acute complaints this AM. Objective Vital Signs, Last 4 Hours Temp Pulse Resp BP Pulse Ox 01/05/19 07:24 98.5 F 78 17 142/85 96 Vital Signs Temp Pulse Resp BP Pulse Ox 01/05/19 07:24 98.5 F 78 17 142/85 96 01/05/19 04:02 98.0 F 107 16 145/76 92 01/04/19 23:46 97.6 F 72 16 136/69 97 01/04/19 21:00 92 01/04/19 18:31 98.2 F 73 16 147/76 98 01/04/19 14:59 98.1 F 70 16 148/77 95 01/04/19 10:41 97.9 F 79 16 158/85 92 Intake and Output 01/04/19 01/05/19 01/05/19 23:59 07:59 15:59 Intake Total 300 / 540 120 / 120 Balance 300 / -260 120 / 120 Intake: Oral 300 / 540 120 / 120 Other: Meal Breakfast Percent of Meal Consumed 100% # Voids 2 Weight 149.8 kg General: Conversant, No Apparent Distress HEENT: Atraumatic, Normocephaly, Mucus Membranes Moist Neck: No JVD, Normal carotid pulses Cardiac: Reg Rate and Rhythm, Normal S1 and S2, No Murmur Lungs: Normal Breath Sounds, No Wheeze, Rales, Rhonchi Neuro: Alert and responsive, No focal deficits noted Abdomen: Soft, Non-Tender Skin: No rashes noted on visualized skin Musculoskeletal: No Chest Wall Tenderness Extremities: No Clubbing, No Cyanosis, No Edema, Normal Pulses Results 01/05/19 03:51 01/05/19 03:51 Lab Results 01/05/19 01/05/19 01/05/19 03:51 03:51 03:51 WBC 6.8 Hgb 12.8 Hct 39.5 Plt Count 316 INR 2.1 Sodium 136 Potassium 3.4 L Chloride 102 Carbon Dioxide 27 BUN 13 Creatinine 0.60 Glucose 100 Calcium 8.7 Magnesium 1.8 Short CBC 01/05/19 Range/Units 03:51 WBC 6.8 (4.3-11.1) K/mcL Hgb 12.8 (11.5-15.4) g/dL Hct 39.5 (35.3-44.9) % Plt Count 316 (140-400) K/mcL Neutrophils # 4.0 (1.6-8.9) K/mcL BMP 01/05/19 Range/Units 03:51 Sodium 136 (136-145) mEq/L Potassium 3.4 L (3.5-5.1) mEq/L Chloride 102 (98-107) mEq/L Carbon Dioxide 27 (23-29) mEq/L BUN 13 (8-23) mg/dL Creatinine 0.60 (0.60-1.20) mg/dL Glucose 100 (70-105) mg/dL Calcium 8.7 (8.6-10.3) mg/dL Active Medications Aspirin (Aspirin Ec) 81 mg PO DAILY [facility] Stop: 07/06/19 09:01 Last Admin: 01/05/19 08:48 Dose: 81 mg Documented by: Atorvastatin Calcium (Lipitor) 40 mg PO [facility] Stop: 07/06/19 21:01 Last Admin: 01/04/19 21:36 Dose: 40 mg Documented by: Carvedilol (Coreg) 3.125 mg PO BIDWM [facility]; Protocol Stop: 07/06/19 11:26 Last Admin: 01/05/19 08:49 Dose: 3.125 mg Documented by: Ferrous Sulfate (Ferrous Sulfate) 325 mg PO DAILY@1200 [facility] Stop: 07/06/19 12:01 Last Admin: 01/04/19 12:15 Dose: 325 mg Documented by: Furosemide (Lasix) 20 mg PO DAILY [facility] Stop: 07/06/19 11:27 Last Admin: 01/05/19 08:49 Dose: 20 mg Documented by: Gabapentin (Neurontin) 900 mg PO HS [facility] Stop: 07/06/19 21:01 Last Admin: 01/04/19 21:33 Dose: 900 mg Documented by: Isosorbide Mononitrate (Imdur) 30 mg PO DAILY [facility] Stop: 07/07/19 09:01 Last Admin: 01/05/19 08:49 Dose: 30 mg Documented by: Lisinopril (Zestril) 2.5 mg PO DAILY [facility]; Protocol Stop: 07/06/19 11:27 Last Admin: 01/05/19 08:48 Dose: 2.5 mg Documented by: Naloxone HCl (Narcan) 0.4 mg IVP Q2MPRN PRN PRN Reason: SEE COMMENTS Stop: 07/05/19 16:11 Omeprazole (Prilosec) 40 mg PO DAILY [facility]; Protocol Stop: 07/06/19 09:01 Last Admin: 01/05/19 08:48 Dose: 40 mg Documented by: Warfarin Sodium (Coumadin Perpt) 1 each PO DAILY@1800 PRN; Protocol PRN Reason: SEE COMMENTS Stop: 07/06/19 18:01 - Imaging and Cardiology Echo: report reviewed Cardiac cath: report reviewed Consult Discharge Plan - Plan Referrals: Joanna Alvarado MD [Primary Care Provider] - Cardiac Rehab - Cardiac Rehab Cardiac Rehab: Phase I consult completed. Patient was educated on why Cardiac Rehabilitation is beneficial to his/her health. Participating in a cardiac rehabilitation can improve the following: strengthen your heart, improve ejection fraction, weight reduction, decrease cholesterol levels, lower blood pressure, lower blood sugar, improve stamina, and enhance self-image. If he/she has any questions, they were instructed to call [facility] at [phone].
[2019-01-05] MEDS ORDERED: Perflutren Lipid Microsphere 1.3 ML in 0.9 % Sodium Chloride 8.7 ML IVP ONE (09:54)
[2019-01-05 11:17] VITALS: BP 131/74
--- NOTE | 2019-01-05 11:32 | Discharge Summary ---
- NOTES TO OUTPATIENT PROVIDER Notes to Outpatient Provider: Patient was admitted due to syncopal episode related to hypotension from her antihypertensive medication. Her pacemaker was interrogated with negative findings. Her blood pressure medication was adjusted. prelim carotid Doppler showed nonstenotic plaque so please follow up on the final report. Date of Encounter: 01/05/19 Time of Encounter: 10:15 - Discharge Diagnosis (1) Syncope Priority: Primary Status: Resolved Qualifiers: Syncope type: unspecified Qualified Code(s): R55 - Syncope and collapse (2) Acute systolic CHF (congestive heart failure), NYHA class 4 Priority: Secondary Status: Chronic (3) Atrial fibrillation Priority: Secondary Status: Chronic Qualifiers: Atrial fibrillation type: permanent Qualified Code(s): I48.21 - Permanent atrial fibrillation (4) CAD (coronary artery disease) Priority: Secondary Status: Chronic Qualifiers: Coronary Disease-Associated Artery/Lesion type: [place] artery [place] vs. transplanted heart: [place] heart Associated angina: without angina Qualified Code(s): I25.10 - Atherosclerotic heart disease of [place] coronary artery without angina pectoris (5) HTN (hypertension) Priority: Secondary Status: Chronic Qualifiers: Hypertension type: essential hypertension Qualified Code(s): I10 - Essential (primary) hypertension (6) DVT prophylaxis Priority: Secondary Status: Acute Hospital course: Ms. Correa is a 83 year old female with pmh of atrial fibrillation, hyperlipidemia, hypertension, coronary artery disease , pacemaker placement, HFrEF was admitted to the hospital due to syncopal episode. Patient was found to be hypotensive at presentation and her syncope was related to her new and increased doses medication started within the last visit when she presented with decompensated heart failure and reduced ejection fraction. Cardiology service was consulted and her medication was adjusted with good tolerance of her blood pressure. Had bilateral carotid Doppler did reveal nonstenotic plaque. Today, patient is hemodynamically stable and she will be discharged home in stable condition. Discharge discussed with: patient - Time Spent with Patient Total time spent providing and/or coordinating discharge services: 32 minutes - Discharge Medications Prescriptions: New Carvedilol [Coreg] 3.125 mg PO BIDWM #60 tablet Isosorbide MONOnitrate (24 HR) [Imdur] 30 mg PO DAILY #30 tab.er.24h Furosemide [Lasix] 20 mg PO DAILY #30 tablet Lisinopril [Zestril] 2.5 mg PO DAILY #30 tablet Continued Atorvastatin [Lipitor] 40 mg PO DAILY Aspirin Enteric Coated [Aspirin EC] 81 mg PO DAILY Alendronate Sodium [Fosamax] 70 mg PO MO Gabapentin [Neurontin] 900 mg PO HS Omeprazole [PriLOSEC] 40 mg PO DAILY Ferrous Sulfate [Iron] 325 mg PO DAILY Warfarin Sodium 5 mg PO MO Warfarin Sodium 2.5 mg PO SUTUWETHFRSA Fluticasone Propionate Nasal [Flonase] 2 spray NS DAILY PRN PRN Reason: Allergy Symptoms Discontinued Carvedilol [Coreg] 12.5 mg PO BID Isosorbide MONOnitrate (24 HR) [Imdur] 90 mg PO QAM Furosemide [Lasix] 40 mg PO BIDDIURETIC #60 tablet Lisinopril [Zestril] 5 mg PO DAILY #30 tablet Home Medications: Aspirin Enteric Coated [Aspirin EC] 81 mg PO DAILY 12/26/14 [History] Atorvastatin [Lipitor] 40 mg PO DAILY 12/26/14 [History] Alendronate Sodium [Fosamax] 70 mg PO MO 12/23/18 [History] Ferrous Sulfate [Iron] 325 mg PO DAILY 12/23/18 [History] Fluticasone Propionate Nasal [Flonase] 2 spray NS DAILY PRN 12/23/18 [History] Gabapentin [Neurontin] 900 mg PO HS 12/23/18 [History] Omeprazole [PriLOSEC] 40 mg PO DAILY 12/23/18 [History] Warfarin Sodium 2.5 mg PO SUTUWETHFRSA 12/23/18 [History] Warfarin Sodium 5 mg PO MO 12/23/18 [History] Carvedilol [Coreg] 3.125 mg PO BIDWM #60 tablet 01/05/19 [Rx] Furosemide [Lasix] 20 mg PO DAILY #30 tablet 01/05/19 [Rx] Isosorbide MONOnitrate (24 HR) [Imdur] 30 mg PO DAILY #30 tab.er.24h 01/05/19 [Rx] Lisinopril [Zestril] 2.5 mg PO DAILY #30 tablet 01/05/19 [Rx] Allergies/Adverse Reactions: Allergy/AdvReac Type Severity Reaction Status Date / Time ranolazine [From Ranexa] AdvReac Hallucinati Verified 01/04/19 12:30 ng Date of admission: 01/03/19 18:04 Primary care physician: Joanna Alvarado MD Consults: 01/03/19 16:14 Consult to Cardiology [CONS] Stat Comment: Consulting Provider: Cardiology Daria Reason for Consult: syncopal episode in setting if cardiomyopathy/pacemaker r/o arrhythmia Call Completed: No - Constitutional Vitals: Temp Pulse Resp BP Pulse Ox 98.1 F 76 17 131/74 96 01/05/19 11:15 01/05/19 11:15 01/05/19 11:15 01/05/19 11:15 01/05/19 11:15 Exam: General: Patient is alert, oriented 3. Head: Atraumatic, normal inspection, normocephalic. Eye: EOMI, PERRLA, ENT: Mucous membranes moist. Neck: Normal inspection, Respiratory: No respiratory distress, rhonchi, or wheezes noted. Cardiovascular: Regular rate and IRregular rhythm, S1 and S2 audible. No murmurs, rubs, or gallops. GI: Soft, nondistended, normal bowel sounds. Extremities:No joint swelling, pedal edema, or tenderness noted. Neurological: Alert, oriented 3, no focal deficits. Psychiatric: normal affect, normal mood. Skin: Dry, intact, warm. Normal color. No rashes. - Patient Status Disposition: Home, Self-Care Condition: Good Functional capacity at discharge: independent ambulation Overall status at discharge: patient is back to baseline - Discharge Instructions Follow Up With: Joanna Alvarado MD [Primary Care Provider] - - Diet and Activity Activity: increase activity as tolerated Diet: low salt diet
[2019-01-05] MEDS ORDERED: *HR* Warfarin 5 MG TABLET PO ONE (18:00)
== END 2019-01-05 13:27 | disposition home or self-care (01) ==
LOC: 2ANU 12:40 → EMEROOARM 12:40 → SUATTDRO 18:04 → 2ANU 18:19
PROVIDERS: ADMIT Pharmacist; ATTEND Internal Medicine

== ENCOUNTER 2020-09-21 12:25 | Observation (INO) ==
[2020-09-21] MEDS ORDERED: cefTRIAXone 1,000 MG in Water for inj. (sterile) 10 ML IVP ONE (12:52)
[2020-09-21] MEDS ORDERED: Ipratropium/Albuterol Neb 3 ML IH ONE (12:52)
[2020-09-21] MEDS ORDERED: Azithromycin 500 MG in 0.9 % Sodium Chloride 250 ML IVPB ONE (12:52)
[2020-09-21] MEDS ORDERED: Acetaminophen 325 MG TABLET PO ONE (12:56)
[2020-09-21 13:41] LABS: Basophils % 0.4 %; Hematocrit 38.3 % (35.3-44.9); Hemoglobin 12.6 g/dL (11.5-15.4); Immature Granulocytes % 0.3 % (0-4); Lymphocytes # 0.5 K/mcL (0.6-4.6); Lymphocytes % 5.8 %; Mean Corpuscular HGB Conc 32.9 g/dL (31.6-35.5); Mean Corpuscular Hemoglobin 29.5 pg (28.0-33.3); Mean Corpuscular Volume 89.7 fL (83.0-100.0); Mean Platelet Volume 10.1 fL (9.4-12.4); Monocytes # 0.7 K/mcL (0.0-1.3); Monocytes % 7.8 %; Platelet Count 283 K/mcL (140-400); Red Blood Count 4.27 M/mcL (3.82-4.97); Red Cell Distribution Width 13.6 % (11.5-14.5); Segmented Neutrophils % 85.7 %; White Blood Count 9.4 K/mcL (4.3-11.1)
[2020-09-21 14:03] LABS: Troponin I 0.04 ng/mL (< 0.04)
[2020-09-21 14:04] LABS: Alanine Aminotransferase 13 Units/L (7-52); Albumin 4.3 g/dL (3.5-5.7); Albumin/Globulin Ratio 1.1 (1.1-2.2); Alkaline Phosphatase 79 Units/L (34-104); Aspartate Amino Transferase 21 Units/L (13-39); BUN/Creatinine Ratio 14 (6-26); Bilirubin,Direct 0.2 mg/dL (0.0-0.2); Bilirubin,Total 1.2 mg/dL (0.3-1.0); Blood Urea Nitrogen 9 mg/dL (8-23); Calcium 8.8 mg/dL (8.6-10.3); Carbon Dioxide 26 mEq/L (23-29); Chloride 96 mEq/L (98-107); Globulin 3.9 g/dL (2.4-3.5); Glucose 143 mg/dL (70-105); Osmolality,Calculated 277 (280-300); Potassium 3.7 mEq/L (3.5-5.1); Sodium 133 mEq/L (136-145); Total Protein 8.2 g/dL (6.4-8.9); eGFR For African Americans > 60 (> 60); eGFR For Non-African Americans > 60 (> 60)
[2020-09-21] MEDS ORDERED: 0.9 % Sodium Chloride 1,000 ML IVC ONE (14:14)
[2020-09-21 14:35] LABS: Adenovirus Not Detected (Not Detect); Coronavirus 229E Not Detected (Not Detect); Coronavirus HKU1 Not Detected (Not Detect); Coronavirus NL63 Not Detected (Not Detect)
[2020-09-21 14:36] LABS: Bordetella Pertussis Not Detected (Not Detect); Chlamydophila pneumoniae Not Detected (Not Detect); Coronavirus OC43 Not Detected (Not Detect); Human Metapneumovirus Not Detected (Not Detect); Human Rhinovirus/Enterovirus Not Detected (Not Detect); Influenza A Subtype 2009 H1 Not Detected (Not Detect); Influenza B Not Detected (Not Detect); Mycoplasma pneumoniae Not Detected (Not Detect); Parainfluenza Virus 1 Not Detected (Not Detect); Parainfluenza Virus 2 Not Detected (Not Detect); Parainfluenza Virus 3 DETECTED (Not Detect); Parainfluenza Virus 4 Not Detected (Not Detect); Respiratory Syncytial Virus Not Detected (Not Detect); SARS-CoV-2 Not Detected (Not Detect)
[2020-09-21] MEDS ORDERED: Ondansetron 4 MG/2 ML VIAL IVP PRN (14:47)
[2020-09-21] MEDS ORDERED: Naloxone 0.4 MG/ML INJ IVP PRN (14:47)
[2020-09-21] MEDS ORDERED: Ipratropium/Albuterol Neb 3 ML ONE (15:43)
[2020-09-21] MEDS: Ipratropium/Albuterol Neb 3 ML IH SCH ×2 (15:57→21:04)
[2020-09-21] MEDS: carvediloL 6.25 MG TABLET PO SCH (16:44)
[2020-09-21 17:09] LABS: INR 2.5; Prothrombin Time 27.7 Seconds (9.4-12.1)
[2020-09-21] MEDS ORDERED: Warfarin perPT PO PRN (18:00)
[2020-09-21] MEDS ORDERED: *HR* Warfarin 2.5 MG TABLET PO ONE (18:00)
[2020-09-21] MEDS: Acetaminophen 325 MG TABLET PO PRN (19:40)
[2020-09-21] MEDS ORDERED: lisinopriL 10 MG TABLET PO SCH (21:00)
[2020-09-21] MEDS: Gabapentin 300 MG CAPSULE PO SCH (21:13)
[2020-09-22 01:12] LABS: Basophils % 0.5 %; Eosinophils % 0.4 %; Hematocrit 34.9 % (35.3-44.9); Hemoglobin 11.5 g/dL (11.5-15.4); Immature Granulocytes % 0.3 % (0-4); Lymphocytes # 0.7 K/mcL (0.6-4.6); Lymphocytes % 9.2 %; Mean Corpuscular Hemoglobin 29.7 pg (28.0-33.3); Mean Corpuscular Volume 90.2 fL (83.0-100.0); Mean Platelet Volume 9.8 fL (9.4-12.4); Monocytes % 12.8 %; Platelet Count 207 K/mcL (140-400); Red Blood Count 3.87 M/mcL (3.82-4.97); Red Cell Distribution Width 13.7 % (11.5-14.5); Segmented Neutrophils % 76.8 %; White Blood Count 7.8 K/mcL (4.3-11.1)
[2020-09-22 01:18] LABS: INR 2.1
[2020-09-22 01:34] LABS: BUN/Creatinine Ratio 18 (6-26); Blood Urea Nitrogen 11 mg/dL (8-23); Carbon Dioxide 27 mEq/L (23-29); Chloride 99 mEq/L (98-107); Glucose 125 mg/dL (70-105); Magnesium 1.8 mg/dL (1.6-2.6); Osmolality,Calculated 279 (280-300); Potassium 3.6 mEq/L (3.5-5.1); Sodium 134 mEq/L (136-145); eGFR For African Americans > 60 (> 60); eGFR For Non-African Americans > 60 (> 60)
[2020-09-22] MEDS: Ipratropium/Albuterol Neb 3 ML IH SCH ×4 (03:08→22:16)
[2020-09-22] MEDS ORDERED: cefTRIAXone 1,000 MG in 0.9 % Sodium Chloride Mini Bag 100 ML IVPB SCH (09:00)
[2020-09-22] MEDS ORDERED: Furosemide 20 MG TABLET PO SCH (09:00)
[2020-09-22] MEDS ORDERED: lisinopriL 5 MG TABLET PO SCH (09:00)
[2020-09-22] MEDS: Multivit/Ca/Min/Fe/FA 1 TAB TABLET PO SCH (09:15)
[2020-09-22] MEDS: Cholecalciferol (D-3) 1,000 UNIT (25MCG) TABLET PO SCH (09:15)
[2020-09-22] MEDS: Isosorbide MONOnitrate (24 HR) 30 MG TAB.ER.24H PO SCH (09:15)
[2020-09-22] MEDS: Aspirin Enteric Coated 81 MG Tablet PO SCH (09:15)
[2020-09-22] MEDS: carvediloL 6.25 MG TABLET PO SCH ×2 (09:15→17:19)
[2020-09-22] MEDS: lisinopriL 10 MG TABLET PO SCH (09:15)
[2020-09-22] MEDS: Acetaminophen 325 MG TABLET PO PRN (11:44)
[2020-09-22] MEDS ORDERED: Azithromycin 500 MG in 0.9 % Sodium Chloride 250 ML IVPB SCH (13:00)
[2020-09-22 16:54] LABS: Bilirubin,Urine Negative (Negative); Blood,Urine Small (Negative); Clarity,Urine Clear (Clear); Color,Urine Light-Yellow (Yellow); Glucose,Urine (UA) Normal (Normal); Ketones,Urine Negative (Negative); Leukocyte Esterase,Urine Negative (Negative); Mucus,Urine Few per lpf (None-Few); Nitrite,Urine Negative (Negative); Protein,Urine 50 mg/dL (Neg-Trace); RBC,Urine 0-3 per hpf (0-3); Specific Gravity,Urine 1.021 (1.010-1.025); Urobilinogen,Urine Normal (Normal); WBC,Urine 0-3 per hpf (0-3)
[2020-09-22] MEDS ORDERED: *HR* Warfarin 2.5 MG TABLET PO ONE (18:00)
[2020-09-22] MEDS: Gabapentin 300 MG CAPSULE PO SCH (21:22)
[2020-09-22] MEDS: Furosemide 20 MG TABLET PO SCH (21:24)
[2020-09-23] MEDS: Acetaminophen 325 MG TABLET PO PRN ×2 (00:15→06:19)
[2020-09-23] MEDS: Ipratropium/Albuterol Neb 3 ML IH SCH ×2 (04:02→10:15)
[2020-09-23 05:39] LABS: Basophils % 0.5 %; Eosinophils # 0.1 K/mcL (0.0-0.6); Eosinophils % 1.6 %; Hematocrit 31.4 % (35.3-44.9); Hemoglobin 10.8 g/dL (11.5-15.4); Immature Granulocytes % 0.3 % (0-4); Lymphocytes # 1.5 K/mcL (0.6-4.6); Lymphocytes % 20.2 %; Mean Corpuscular HGB Conc 34.4 g/dL (31.6-35.5); Mean Corpuscular Hemoglobin 30.4 pg (28.0-33.3); Mean Corpuscular Volume 88.5 fL (83.0-100.0); Monocytes # 1.1 K/mcL (0.0-1.3); Monocytes % 15.3 %; Neutrophils # 4.6 K/mcL (1.6-8.9); Platelet Count 211 K/mcL (140-400); Red Blood Count 3.55 M/mcL (3.82-4.97); Red Cell Distribution Width 13.5 % (11.5-14.5); Segmented Neutrophils % 62.1 %; White Blood Count 7.5 K/mcL (4.3-11.1)
[2020-09-23 05:49] LABS: INR 2.3; Prothrombin Time 26.2 Seconds (9.4-12.1)
[2020-09-23 05:59] LABS: BUN/Creatinine Ratio 27 (6-26); Blood Urea Nitrogen 13 mg/dL (8-23); Calcium 7.8 mg/dL (8.6-10.3); Carbon Dioxide 25 mEq/L (23-29); Chloride 97 mEq/L (98-107); Glucose 99 mg/dL (70-105); Osmolality,Calculated 274 (280-300); Sodium 132 mEq/L (136-145); eGFR For African Americans > 60 (> 60); eGFR For Non-African Americans > 60 (> 60)
[2020-09-23 08:23] VITALS: BP 162/87
[2020-09-23] MEDS: Aspirin Enteric Coated 81 MG Tablet PO SCH (08:37)
[2020-09-23] MEDS: Multivit/Ca/Min/Fe/FA 1 TAB TABLET PO SCH (08:37)
[2020-09-23] MEDS: lisinopriL 10 MG TABLET PO SCH (08:37)
[2020-09-23] MEDS: Isosorbide MONOnitrate (24 HR) 30 MG TAB.ER.24H PO SCH (08:37)
[2020-09-23] MEDS: Cholecalciferol (D-3) 1,000 UNIT (25MCG) TABLET PO SCH (08:38)
[2020-09-23] MEDS: carvediloL 6.25 MG TABLET PO SCH (08:38)
[2020-09-23] MEDS: Furosemide 20 MG TABLET PO SCH (08:38)
[2020-09-23] MEDS ORDERED: cefTRIAXone 1,000 MG in Water for inj. (sterile) 10 ML IVP SCH (09:00)
== END 2020-09-23 11:53 | disposition home or self-care (01) ==
LOC: 3ANU 12:25 → EMEROOARM 12:25 → SUATTDRO 14:56 → 3ANU 15:34
PROVIDERS: ADMIT Internal Medicine; ATTEND Family Medicine

== ENCOUNTER 2020-09-25 15:21 | Observation (INO) ==
[2020-09-25 16:10] LABS: Basophils # 0.1 K/mcL (0.0-0.2); Basophils % 0.9 %; Eosinophils # 0.1 K/mcL (0.0-0.6); Eosinophils % 0.7 %; Hematocrit 36.4 % (35.3-44.9); Hemoglobin 11.9 g/dL (11.5-15.4); Immature Granulocytes % 0.5 % (0-4); Lymphocytes # 2.1 K/mcL (0.6-4.6); Lymphocytes % 21.7 %; Mean Corpuscular HGB Conc 32.7 g/dL (31.6-35.5); Mean Corpuscular Hemoglobin 29.5 pg (28.0-33.3); Mean Corpuscular Volume 90.3 fL (83.0-100.0); Monocytes # 1.1 K/mcL (0.0-1.3); Monocytes % 11.5 %; Neutrophils # 6.3 K/mcL (1.6-8.9); Platelet Count 325 K/mcL (140-400); Red Blood Count 4.03 M/mcL (3.82-4.97); Red Cell Distribution Width 13.5 % (11.5-14.5); Segmented Neutrophils % 64.7 %; White Blood Count 9.7 K/mcL (4.3-11.1)
[2020-09-25 16:25] LABS: Alanine Aminotransferase 19 Units/L (7-52); Albumin 3.9 g/dL (3.5-5.7); Albumin/Globulin Ratio 1.1 (1.1-2.2); Alkaline Phosphatase 70 Units/L (34-104); Aspartate Amino Transferase 28 Units/L (13-39); BUN/Creatinine Ratio 17 (6-26); Bilirubin,Direct 0.2 mg/dL (0.0-0.2); Bilirubin,Indirect 0.6 mg/dL (0.0-1.0); Bilirubin,Total 0.8 mg/dL (0.3-1.0); Blood Urea Nitrogen 15 mg/dL (8-23); Calcium 8.3 mg/dL (8.6-10.3); Carbon Dioxide 30 mEq/L (23-29); Chloride 96 mEq/L (98-107); Globulin 3.6 g/dL (2.4-3.5); Glucose 181 mg/dL (70-105); Osmolality,Calculated 285 (280-300); Sodium 135 mEq/L (136-145); Total Protein 7.5 g/dL (6.4-8.9); Troponin I < 0.03 ng/mL (< 0.04); eGFR For African Americans > 60 (> 60); eGFR For Non-African Americans > 60 (> 60)
[2020-09-25 16:26] LABS: Activated Partial Thrombo Time 29.8 Seconds (26.0-36.0)
[2020-09-25] MEDS ORDERED: Aspirin 81 MG TAB.CHEW PO ONE (17:35)
[2020-09-25 17:44] LABS: INR 2.7; Prothrombin Time 30.7 Seconds (9.4-12.1)
[2020-09-25] MEDS ORDERED: Perflutren Lipid Microsphere 1.3 ML in 0.9 % Sodium Chloride 8.7 ML IVP PRN (17:58)
[2020-09-25] MEDS ORDERED: Warfarin perPT PO PRN (18:00)
[2020-09-25] MEDS ORDERED: Naloxone 0.4 MG/ML INJ IVP PRN (18:04)
[2020-09-25] MEDS ORDERED: Ondansetron 4 MG/2 ML VIAL IVP PRN (18:04)
[2020-09-25] MEDS ORDERED: Azithromycin 250 MG TABLET PO SCH (18:15)
[2020-09-25] MEDS: predniSONE 20 MG TABLET PO SCH (19:02)
[2020-09-25] MEDS ORDERED: *HR* Warfarin 2.5 MG TABLET PO ONE (19:06)
[2020-09-25] MEDS ORDERED: Gabapentin 300 MG CAPSULE PO SCH (21:00)
[2020-09-26 06:14] LABS: Hematocrit 35.5 % (35.3-44.9); Hemoglobin 11.8 g/dL (11.5-15.4); Mean Corpuscular HGB Conc 33.2 g/dL (31.6-35.5); Mean Corpuscular Hemoglobin 29.5 pg (28.0-33.3); Mean Corpuscular Volume 88.8 fL (83.0-100.0); Mean Platelet Volume 10.1 fL (9.4-12.4); Platelet Count 292 K/mcL (140-400); Red Cell Distribution Width 13.4 % (11.5-14.5); White Blood Count 6.2 K/mcL (4.3-11.1)
[2020-09-26 06:21] LABS: INR 2.6; Prothrombin Time 29.5 Seconds (9.4-12.1)
[2020-09-26 06:39] LABS: Alanine Aminotransferase 18 Units/L (7-52); Albumin 3.6 g/dL (3.5-5.7); Albumin/Globulin Ratio 1.1 (1.1-2.2); Alkaline Phosphatase 64 Units/L (34-104); Aspartate Amino Transferase 22 Units/L (13-39); BUN/Creatinine Ratio 25 (6-26); Bilirubin,Total 0.8 mg/dL (0.3-1.0); Blood Urea Nitrogen 13 mg/dL (8-23); Calcium 8.4 mg/dL (8.6-10.3); Carbon Dioxide 28 mEq/L (23-29); Chloride 98 mEq/L (98-107); Chol/HDL Ratio 5.6 (0-4.9); Cholesterol 129 mg/dL (< 200); Globulin 3.3 g/dL (2.4-3.5); Glucose 148 mg/dL (70-105); HDL Cholesterol 23 mg/dL (40-59); LDL Cholesterol,Calculated 90 mg/dL (< 100); Osmolality,Calculated 283 (280-300); Potassium 3.9 mEq/L (3.5-5.1); Sodium 135 mEq/L (136-145); Total Protein 6.9 g/dL (6.4-8.9); Triglycerides 82 mg/dL (< 150); eGFR For African Americans > 60 (> 60); eGFR For Non-African Americans > 60 (> 60)
[2020-09-26 08:05] LABS: Estimated Average Glucose 146 mg/dl; Hemoglobin A1C 6.7 %
[2020-09-26] MEDS: carvediloL 6.25 MG TABLET PO SCH ×2 (08:12→17:20)
[2020-09-26] MEDS: predniSONE 20 MG TABLET PO SCH (08:13)
[2020-09-26] MEDS ORDERED: Isosorbide MONOnitrate (24 HR) 30 MG TAB.ER.24H PO SCH (09:00)
[2020-09-26] MEDS ORDERED: Aspirin Enteric Coated 81 MG Tablet PO SCH (09:00)
[2020-09-26] MEDS ORDERED: Furosemide 20 MG TABLET PO SCH (09:00)
[2020-09-26] MEDS ORDERED: Cholecalciferol (D-3) 1,000 UNIT (25MCG) TABLET PO SCH (09:00)
[2020-09-26 15:22] VITALS: BP 179/82
[2020-09-26] MEDS ORDERED: Isovue-370 500 ML BOTTLE IVP ONE (16:54)
[2020-09-26] MEDS ORDERED: *HR* Warfarin 2.5 MG TABLET PO ONE (18:00)
== END 2020-09-26 18:45 | disposition home or self-care (01) ==
LOC: 3BNU 15:21 → EMEROOARM 15:21 → 3BNU 20:06
PROVIDERS: ADMIT Internal Medicine; ATTEND Internal Medicine

== ENCOUNTER 2021-10-10 18:36 | Observation (INO) ==
[2021-10-10 19:06] LABS: Basophils # 0.1 K/mcL (0.0-0.2); Basophils % 1.2 %; Eosinophils # 0.3 K/mcL (0.0-0.6); Eosinophils % 3.2 %; Hematocrit 37.7 % (35.3-44.9); Hemoglobin 12.3 g/dL (11.5-15.4); Immature Granulocytes % 0.1 % (0-4); Lymphocytes # 1.5 K/mcL (0.6-4.6); Lymphocytes % 19.8 %; Mean Corpuscular HGB Conc 32.6 g/dL (31.6-35.5); Mean Corpuscular Hemoglobin 29.1 pg (28.0-33.3); Mean Corpuscular Volume 89.3 fL (83.0-100.0); Mean Platelet Volume 9.8 fL (9.4-12.4); Monocytes # 0.7 K/mcL (0.0-1.3); Monocytes % 9.1 %; Neutrophils # 5.2 K/mcL (1.6-8.9); Platelet Count 296 K/mcL (140-400); Red Blood Count 4.22 M/mcL (3.82-4.97); Segmented Neutrophils % 66.6 %; White Blood Count 7.8 K/mcL (4.3-11.1)
[2021-10-10 19:17] LABS: INR 3.6; Prothrombin Time 39.5 Seconds (9.4-12.1)
[2021-10-10 19:19] LABS: Activated Partial Thrombo Time 40.6 Seconds (26.0-36.0)
[2021-10-10 19:35] LABS: BUN/Creatinine Ratio 12 (6-26); Blood Urea Nitrogen 8 mg/dL (8-23); Calcium 8.1 mg/dL (8.6-10.3); Carbon Dioxide 29 mEq/L (23-29); Chloride 101 mEq/L (98-107); Glucose 135 mg/dL (70-105); Osmolality,Calculated 288 (280-300); Potassium 3.4 mEq/L (3.5-5.1); Sodium 139 mEq/L (136-145); Troponin I < 0.03 ng/mL (< 0.04); eGFR For African Americans > 60 (> 60); eGFR For Non-African Americans > 60 (> 60)
[2021-10-10] MEDS ORDERED: Ibuprofen 600 MG TABLET PO ONE (20:49)
[2021-10-10] MEDS ORDERED: Melatonin 3 MG TABLET PO PRN (22:10)
[2021-10-10] MEDS ORDERED: *HR* Promethazine 25 MG/ML VIAL IM PRN (22:10)
[2021-10-10] MEDS ORDERED: *HR* HYDROcodone/Acet 5/325 mg TABLET PO PRN (22:10)
[2021-10-10] MEDS ORDERED: *HR* OxyCODONE Immed Rel 5 MG TABLET PO PRN (22:10)
[2021-10-10] MEDS ORDERED: Ondansetron 4 MG/2 ML VIAL IVP PRN (22:10)
[2021-10-10] MEDS ORDERED: Naloxone 0.4 MG/ML INJ IVP PRN (22:10)
[2021-10-10] MEDS ORDERED: Furosemide 40 MG/4 ML VIAL IVP ONE (22:14)
[2021-10-10 22:37] LABS: Influenza A PCR Negative (Negative); Influenza B PCR Negative (Negative); Resp. Syncytial Virus PCR Negative (Negative)
[2021-10-10 22:38] LABS: SARS-CoV-2 by PCR (In House) Negative (Negative)
[2021-10-10] MEDS: Gabapentin 300 MG CAPSULE PO SCH (23:05)
[2021-10-10] MEDS: carvediloL 6.25 MG TABLET PO SCH (23:07)
[2021-10-11 01:53] LABS: Basophils # 0.1 K/mcL (0.0-0.2); Basophils % 0.9 %; Eosinophils # 0.2 K/mcL (0.0-0.6); Eosinophils % 2.8 %; Hematocrit 36.8 % (35.3-44.9); Immature Granulocytes % 0.2 % (0-4); Lymphocytes # 1.7 K/mcL (0.6-4.6); Lymphocytes % 19.5 %; Mean Corpuscular HGB Conc 32.6 g/dL (31.6-35.5); Mean Corpuscular Hemoglobin 29.1 pg (28.0-33.3); Mean Corpuscular Volume 89.1 fL (83.0-100.0); Mean Platelet Volume 10.3 fL (9.4-12.4); Monocytes # 0.7 K/mcL (0.0-1.3); Neutrophils # 5.8 K/mcL (1.6-8.9); Platelet Count 273 K/mcL (140-400); Red Blood Count 4.13 M/mcL (3.82-4.97); Red Cell Distribution Width 14.1 % (11.5-14.5); Segmented Neutrophils % 68.6 %; White Blood Count 8.5 K/mcL (4.3-11.1)
[2021-10-11 02:00] LABS: INR 3.5; Prothrombin Time 38.4 Seconds (9.4-12.1)
[2021-10-11 02:13] LABS: BUN/Creatinine Ratio 13 (6-26); Blood Urea Nitrogen 8 mg/dL (8-23); Calcium 8.1 mg/dL (8.6-10.3); Carbon Dioxide 30 mEq/L (23-29); Chloride 102 mEq/L (98-107); Chol/HDL Ratio 4.5 (0-4.9); Cholesterol 135 mg/dL (< 200); Glucose 83 mg/dL (70-105); HDL Cholesterol 30 mg/dL (40-59); LDL Cholesterol,Calculated 79 mg/dL (< 100); Magnesium 1.6 mg/dL (1.6-2.6); Osmolality,Calculated 289 (280-300); Potassium 3.1 mEq/L (3.5-5.1); Sodium 141 mEq/L (136-145); Triglycerides 130 mg/dL (< 150); eGFR For African Americans > 60 (> 60); eGFR For Non-African Americans > 60 (> 60)
[2021-10-11] MEDS ORDERED: Regadenoson 0.4 MG/5 ML SYRINGE IVP ONE (06:21)
[2021-10-11] MEDS ORDERED: Furosemide 40 MG/4 ML VIAL IVP SCH ×2 (08:00→09:00)
[2021-10-11] MEDS ORDERED: lisinopriL 20 MG TABLET PO SCH (09:00)
[2021-10-11] MEDS: carvediloL 6.25 MG TABLET PO SCH ×2 (09:22→17:00)
[2021-10-11] MEDS: Aspirin Enteric Coated 81 MG Tablet PO SCH (09:22)
[2021-10-11] MEDS ORDERED: Isosorbide MONOnitrate (24 HR) 30 MG TAB.ER.24H PO SCH (13:00)
[2021-10-11] MEDS ORDERED: Nitroglycerin 0.4 MG TAB.SUBL SL PRN (16:16)
[2021-10-11] MEDS: Isosorbide MONOnitrate (24 HR) 60 MG TAB.ER.24H PO SCH (16:59)
[2021-10-11] MEDS ORDERED: Warfarin perPT PO PRN (18:00)
[2021-10-11] MEDS: Gabapentin 300 MG CAPSULE PO SCH (21:37)
[2021-10-11] MEDS: Acetaminophen 325 MG TABLET PO PRN (21:38)
[2021-10-12 02:14] LABS: INR 2.1; Prothrombin Time 23.2 Seconds (9.4-12.1)
[2021-10-12 02:35] LABS: BUN/Creatinine Ratio 17 (6-26); Blood Urea Nitrogen 11 mg/dL (8-23); Calcium 7.6 mg/dL (8.6-10.3); Carbon Dioxide 29 mEq/L (23-29); Chloride 100 mEq/L (98-107); Glucose 93 mg/dL (70-105); Magnesium 1.5 mg/dL (1.6-2.6); Osmolality,Calculated 287 (280-300); Phosphorous 3.2 mg/dL (2.7-4.5); Potassium 3.1 mEq/L (3.5-5.1); Sodium 139 mEq/L (136-145); eGFR For African Americans > 60 (> 60); eGFR For Non-African Americans > 60 (> 60)
[2021-10-12] MEDS: carvediloL 6.25 MG TABLET PO SCH ×2 (08:05→16:16)
[2021-10-12] MEDS: Aspirin Enteric Coated 81 MG Tablet PO SCH (08:07)
[2021-10-12] MEDS: Isosorbide MONOnitrate (24 HR) 60 MG TAB.ER.24H PO SCH (08:08)
[2021-10-12] MEDS: Furosemide 40 MG TABLET PO SCH (08:08)
[2021-10-12] MEDS: lisinopriL 20 MG TABLET PO SCH (08:09)
[2021-10-12] MEDS: Acetaminophen 325 MG TABLET PO PRN (13:28)
[2021-10-12] MEDS ORDERED: Perflutren Lipid Microsphere 1.3 ML in 0.9 % Sodium Chloride 8.7 ML IVP PRN (15:27)
[2021-10-12] MEDS ORDERED: *HR* Warfarin 2.5 MG TABLET PO ONE (18:00)
[2021-10-12] MEDS: Gabapentin 300 MG CAPSULE PO SCH (21:12)
[2021-10-13 03:54] LABS: INR 1.8; Prothrombin Time 20.2 Seconds (9.4-12.1)
[2021-10-13] MEDS: Furosemide 40 MG TABLET PO SCH (08:13)
[2021-10-13] MEDS: Aspirin Enteric Coated 81 MG Tablet PO SCH (08:13)
[2021-10-13] MEDS: lisinopriL 20 MG TABLET PO SCH (08:13)
[2021-10-13] MEDS: Isosorbide MONOnitrate (24 HR) 60 MG TAB.ER.24H PO SCH (08:13)
[2021-10-13] MEDS: carvediloL 6.25 MG TABLET PO SCH ×2 (08:13→18:15)
[2021-10-13 10:23] LABS: BUN/Creatinine Ratio 14 (6-26); Blood Urea Nitrogen 10 mg/dL (8-23); Calcium 8.8 mg/dL (8.6-10.3); Carbon Dioxide 31 mEq/L (23-29); Chloride 102 mEq/L (98-107); Glucose 106 mg/dL (70-105); Osmolality,Calculated 287 (280-300); Potassium 4.4 mEq/L (3.5-5.1); Sodium 139 mEq/L (136-145); eGFR For African Americans > 60 (> 60); eGFR For Non-African Americans > 60 (> 60)
[2021-10-13] MEDS: Acetaminophen 325 MG TABLET PO PRN ×2 (14:07→21:44)
[2021-10-13] MEDS: Gabapentin 300 MG CAPSULE PO SCH (21:44)
[2021-10-14 03:17] VITALS: TEMP 97.9
[2021-10-14 05:08] LABS: Hematocrit 36.5 % (35.3-44.9); Mean Corpuscular HGB Conc 32.9 g/dL (31.6-35.5); Mean Corpuscular Hemoglobin 29.4 pg (28.0-33.3); Mean Corpuscular Volume 89.5 fL (83.0-100.0); Mean Platelet Volume 10.2 fL (9.4-12.4); Platelet Count 273 K/mcL (140-400); Red Blood Count 4.08 M/mcL (3.82-4.97); Red Cell Distribution Width 13.7 % (11.5-14.5)
[2021-10-14 05:14] LABS: INR 1.5; Prothrombin Time 16.6 Seconds (9.4-12.1)
[2021-10-14 05:27] LABS: BUN/Creatinine Ratio 23 (6-26); Blood Urea Nitrogen 15 mg/dL (8-23); Calcium 8.7 mg/dL (8.6-10.3); Carbon Dioxide 28 mEq/L (23-29); Chloride 103 mEq/L (98-107); Glucose 101 mg/dL (70-105); Osmolality,Calculated 289 (280-300); Potassium 3.9 mEq/L (3.5-5.1); Sodium 139 mEq/L (136-145); eGFR For African Americans > 60 (> 60); eGFR For Non-African Americans > 60 (> 60)
[2021-10-14] MEDS: Furosemide 40 MG TABLET PO SCH (09:17)
[2021-10-14] MEDS: Aspirin Enteric Coated 81 MG Tablet PO SCH (09:17)
[2021-10-14] MEDS: carvediloL 6.25 MG TABLET PO SCH (09:17)
[2021-10-14] MEDS: lisinopriL 20 MG TABLET PO SCH (09:17)
[2021-10-14] MEDS: Isosorbide MONOnitrate (24 HR) 60 MG TAB.ER.24H PO SCH (09:17)
[2021-10-14] MEDS ORDERED: carvediloL 6.25 MG TABLET PO ONE (09:18)
[2021-10-14] MEDS ORDERED: Heparin 1,000 UNITS/500 mL 500 ML ONE (09:23)
[2021-10-14] MEDS ORDERED: Iopamidol - 370 200 ML INFUS..BTL ONE (09:23)
[2021-10-14] MEDS ORDERED: *HR* Heparin 10,000 UNIT/10 ML VIAL ONE (09:23)
[2021-10-14] MEDS ORDERED: Nitroglycerin 1,000 MCG/5 ML VIAL IV ONE (09:23)
[2021-10-14] MEDS ORDERED: 0.9 % Sodium Chloride 2,000 ML ONE (09:23)
[2021-10-14] MEDS ORDERED: *HR* Midazolam HCl 2 MG/2 ML VIAL ONE (09:23)
[2021-10-14] MEDS ORDERED: *HR* FentaNYL (PF) 100 MCG/2 ML VIAL ONE (09:23)
[2021-10-14 13:25] VITALS: BP 122/82; PULSE 73; O2SAT 95
[2021-10-14] MEDS ORDERED: carvediloL 6.25 MG TABLET PO SCH (17:00)
[2021-10-14] MEDS ORDERED: Warfarin perPT PO PRN (18:00)
[2021-10-14] MEDS ORDERED: *HR* Warfarin 5 MG TABLET PO ONE (18:00)
== END 2021-10-14 13:58 | disposition home or self-care (01) ==
LOC: EMEROOARM 18:36 → 3BNU 18:36 → SUATTDRO 21:16 → 3BNU 22:01
PROVIDERS: ADMIT Internal Medicine; ATTEND Registered Nurse